=== PATIENT | male | born 1930 | race Caucasian/White ===

== ENCOUNTER 2020-10-12 18:31 | Emergency (ER) | payer MEDICARE ==
--- NOTE | 2020-10-12 19:02 | ED ---
General Adult HPI - General Chief complaint: Recheck/Abnormal Lab/Rx Stated complaint: Low Hemoglobin Time Seen by Provider: 10/12/20 18:41 Source: EMS Mode of arrival: EMS - History of Present Illness Initial comments: Dictation was produced using [employer] dictation software. please excuse any grammatical, word or spelling errors. Chief Complaint: 89-year-old male presents with low hemoglobin History of Present Illness: 89-year-old male who presents to the emergency department for low hemoglobin. Patient is a resident at [facility]. He had routine blood work performed by [facility] doctor. They found that his hemoglobin was 7.3. More history was obtained from Abisai Ma is one of our urologists. He states that the patient is his uncle. 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 There is concern that perhaps patient had black stools for the last several days. Patient at bedside denies any issues at the moment. Denies chest pain abdominal pain or shortness of breath. States that he had some black stools 5 days ago however since then he has had normal colored stools. The ROS documented in this emergency department record has been reviewed and confirmed by me. Those systems with pertinent positive or negative responses have been documented in the HPI. All other systems are other negative and/or noncontributory. PHYSICAL EXAM: General Impression: Alert and oriented x3, not in acute distress HEENT: Normocephalic atraumatic, extra-ocular movements intact, pupils equal and reactive to light bilaterally, mucous membranes moist. Cardiovascular: Heart regular rate and rhythm Chest: Able to complete full sentences, no retractions, no tachypnea Abdomen: abdomen soft, non-tender, non-distended, no organomegaly Musculoskeletal: Pulses present and equal in all extremities, no peripheral edema Motor: no focal deficits noted Neurological: CN II-XII grossly intact, no focal motor or sensory deficits noted Skin: Intact with no visualized rashes Psych: Normal affect and mood Rectal exam: No gross blood ED course: 89-year-old male presents to the emergency Department for hemoglobin 7.3. There is concern that perhaps patient had black stools recently. Vital signs upon arrival are within acceptable limits. Patient is well-appearing at bedside. He does not appear to be in any acute distress. Physical examination is benign. Laboratory evaluation obtained. He will is 7.8. RDW is 18.3. No signs of macrocytosis. Coag panel is negative. Metabolic panel shows mild hypokalemia 3.1. Creatinine of 2.19 and a BUN of 51 still, blood is negative. These labs were discussed with Lizbet Gorman's, patient's nephew who is familiar with his medical history states that patient's renal function is currently at baseline. We do not have a recent lab result for comparison. EKG interpretation: Ventricular rate 57, A. fib, QRS 110, QTc 459. No DE prolongation, no QTC prolongation, no ST or T-wave changes noted. No EKG for comparison. Overall, this EKG is unremarkable Case is discussed with Dr. Mercado who is familiar with patient. She states that patient's hemoglobin is typically in the low 8 range and appeared today 7.8. This appears to be near his baseline. He presentation is benign. He has no GI bleed. Patient feels well and has no symptoms. Patient is agreeable for discharge. - Related Data Allergies Allergy/AdvReac Type Severity Reaction Status Date / Time Penicillins Allergy Severe Anaphylaxis Verified 10/12/20 18:51 Review of Systems ROS Statement: Those systems with pertinent positive or pertinent negative responses have been documented in the HPI. ROS Other: All systems not noted in ROS Statement are negative. Course Vital Signs 10/12/20 18:41 Temperature 98.9 F Pulse Rate 60 Respiratory 18 Rate Blood Pressure 119/42 O2 Sat by Pulse 100 Oximetry Medical Decision Making - Lab Data Result diagrams: 10/12/20 19:08 10/12/20 19:08 Lab Results 10/12/20 10/12/20 10/12/20 Range/Units 19:08 19:08 19:08 WBC 9.2 (3.8-10.6) k/uL RBC 2.53 L (4.30-5.90) m/uL Hgb 7.8 L (13.0-17.5) gm/dL Hct 23.5 L (39.0-53.0) % MCV 92.8 (80.0-100.0) fL MCH 31.0 (25.0-35.0) pg MCHC 33.4 (31.0-37.0) g/dL RDW 18.3 H (11.5-15.5) % Plt Count 335 (150-450) k/uL MPV 8.6 Neutrophils % 67 % Lymphocytes % 14 % Monocytes % 8 % Eosinophils % 7 % Basophils % 1 % Neutrophils # 6.2 (1.3-7.7) k/uL Lymphocytes # 1.3 (1.0-4.8) k/uL Monocytes # 0.7 (0-1.0) k/uL Eosinophils # 0.7 (0-0.7) k/uL Basophils # 0.1 (0-0.2) k/uL Hypochromasia Slight Poikilocytosis Slight Anisocytosis Slight PT 11.0 (9.0-12.0) sec INR 1.0 (<1.2) APTT 29.3 (22.0-30.0) sec Sodium (137-145) mmol/L Potassium (3.5-5.1) mmol/L Chloride (98-107) mmol/L Carbon Dioxide (22-30) mmol/L Anion Gap mmol/L BUN (9-20) mg/dL Creatinine (0.66-1.25) mg/dL Est GFR (CKD-EPI)AfAm (>60 ml/min/1.73 sqM) Est GFR (CKD-EPI)NonAf (>60 ml/min/1.73 sqM) Glucose (74-99) mg/dL Calcium (8.4-10.2) mg/dL Stool Occult Blood Negative (Negative) Blood Type Recheck Bld Type Recheck Status Spec Expiration Date 10/12/20 10/12/20 Range/Units 19:08 19:08 WBC (3.8-10.6) k/uL RBC (4.30-5.90) m/uL Hgb (13.0-17.5) gm/dL Hct (39.0-53.0) % MCV (80.0-100.0) fL MCH (25.0-35.0) pg MCHC (31.0-37.0) g/dL RDW (11.5-15.5) % Plt Count (150-450) k/uL MPV Neutrophils % % Lymphocytes % % Monocytes % % Eosinophils % % Basophils % % Neutrophils # (1.3-7.7) k/uL Lymphocytes # (1.0-4.8) k/uL Monocytes # (0-1.0) k/uL Eosinophils # (0-0.7) k/uL Basophils # (0-0.2) k/uL Hypochromasia Poikilocytosis Anisocytosis PT (9.0-12.0) sec INR (<1.2) APTT (22.0-30.0) sec Sodium 136 L (137-145) mmol/L Potassium 3.1 L (3.5-5.1) mmol/L Chloride 93 L (98-107) mmol/L Carbon Dioxide 33 H (22-30) mmol/L Anion Gap 10 mmol/L BUN 51 H (9-20) mg/dL Creatinine 2.19 H (0.66-1.25) mg/dL Est GFR (CKD-EPI)AfAm 30 (>60 ml/min/1.73 sqM) Est GFR (CKD-EPI)NonAf 26 (>60 ml/min/1.73 sqM) Glucose 124 H (74-99) mg/dL Calcium 8.8 (8.4-10.2) mg/dL Stool Occult Blood (Negative) Blood Type Recheck No Previous Record Bld Type Recheck Status CABO Indicated Spec Expiration Date 10/15/20202307 Disposition Clinical Impression: Abnormal laboratory test Disposition: HOME SELF-CARE Condition: Fair Instructions (If sedation given, give patient instructions): Anemia (ED) Is patient prescribed a controlled substance at d/c from ED?: No Referrals: Homero Renee MD [Primary Care Provider] - 1-2 days
[2020-10-12 19:25] LABS: Anisocytosis Slight; Basophils # (A) 0.1 k/uL (0-0.2); Basophils % (A) 1 %; Eosinophils # (A) 0.7 k/uL (0-0.7); Eosinophils % (A) 7 %; HCT 23.5 % (39.0-53.0); HGB 7.8 gm/dL (13.0-17.5); Hypochromasia Slight; Lymphocytes # (A) 1.3 k/uL (1.0-4.8); Lymphocytes % (A) 14 %; MCHC 33.4 g/dL (31.0-37.0); MCV 92.8 fL (80.0-100.0); Mean Platelet Volume 8.6; Monocytes # (A) 0.7 k/uL (0-1.0); Monocytes % (A) 8 %; Neutrophils # (A) 6.2 k/uL (1.3-7.7); Neutrophils % (A) 67 %; Platelet Count 335 k/uL (150-450); Poikilocytosis Slight; RBC 2.53 m/uL (4.30-5.90); RDW 18.3 % (11.5-15.5); WBC 9.2 k/uL (3.8-10.6)
[2020-10-12 19:34] LABS: Partial Thromboplastin Time 29.3 sec (22.0-30.0)
[2020-10-12 19:43] LABS: Calcium 8.8 mg/dL (8.4-10.2); Potassium 3.1 mmol/L (3.5-5.1)
[2020-10-12] MEDS ORDERED: POTASSIUM CHLORIDE ER 20 MEQ TAB.ER PO STA (19:58)
[2020-10-12 20:29] VITALS: BP 106/52; PULSE 68; RESP 20; TEMP 97.6
== END 2020-10-12 22:09 | disposition home or self-care (01) ==
LOC: EC 18:31
DX: R79.9 Abnormal finding of blood chemistry, unspecified (principal); Z85.048 Personal history of other malignant neoplasm of rectum, rectosigmoid junction, and anus
CPT/HCPCS: 36415; 80048; 82272; 85025; 85610; 85730; 86850; 86900; 86901; 93005; 99284

== ENCOUNTER 2020-10-24 | Inpatient (IN) | payer MEDICARE | END 2020-10-29 14:12 | disposition home or self-care (01) | DRG 377 | PROVIDERS: ADMIT Hospitalist | PROC: 30233N1 Transfusion of Nonautologous Red Blood Cells into Peripheral Vein, Percutaneous Approach (ICD-10-PCS; 2020-10-24) | PROC: 0DB98ZX Excision of Duodenum, Via Natural or Artificial Opening Endoscopic, Diagnostic (ICD-10-PCS; principal; 2020-10-26) | PROC: 0DBH8ZZ Excision of Cecum, Via Natural or Artificial Opening Endoscopic (ICD-10-PCS; 2020-10-26) | PROC: 0DBL8ZZ Excision of Transverse Colon, Via Natural or Artificial Opening Endoscopic (ICD-10-PCS; 2020-10-26) | PROC: 0DBP8ZZ Excision of Rectum, Via Natural or Artificial Opening Endoscopic (ICD-10-PCS; 2020-10-26) | PROC: 0DBM8ZZ Excision of Descending Colon, Via Natural or Artificial Opening Endoscopic (ICD-10-PCS; 2020-10-26) | CPT/HCPCS: 36415; 43239; 45380; 45385; 71046; 80048; 80053; 81001; 82272; 82728; 82747; 83010; 83540; 83550; 83615; 83735; 84484; 85025; 85027; 85610; 85730; 86850; 86900; 86901; 86920; 87077; 87086; 87186; 87635; 88305; 93005; 94640; 94760; 96374; 99291 ==

== ENCOUNTER 2021-01-26 09:42 | Inpatient (IN) | payer MEDICARE ==
--- NOTE | 2021-01-26 10:07 | ED ---
General Adult HPI - General Chief complaint: Shortness of Breath Stated complaint: SOB Time Seen by Provider: 01/26/21 10:00 Source: patient, EMS, RN notes reviewed, old records reviewed Mode of arrival: EMS Limitations: no limitations - History of Present Illness Initial comments: This is an 89-year-old male who presents emergency Department and is very poor historian. Patient states he is having shortness of breath per patient states it started about 3 weeks. Aggressively worse. Patient states she smokes cigarettes up until last year. Patient states she's never been told that he had emphysema or COPD. Patient has no complaints of any chest pain or pain anywhere. Patient denies any recent fever chills per patient denies any significant cough. Patient states he is unable to walk any distance before he gets short of breath per patient states normally can go down and get food but now he has to stop multiple times before he gets it because he is so short of breath. Patient denies any recent vomiting or diarrhea. Patient states that he is getting weaker as well. - Related Data Home Medications Medication Instructions Recorded Confirmed Acetaminophen Tab [Tylenol] 500 mg PO Q4H PRN 10/24/20 10/24/20 Albuterol Inhaler [Ventolin Hfa 1 puff INHALATION RT-Q4H 10/24/20 10/24/20 Inhaler] Allopurinol [Zyloprim] 200 mg PO DAILY 10/24/20 10/24/20 Apixaban [Eliquis] 2.5 mg PO BID 10/24/20 10/24/20 Cholecalciferol [Vitamin D3 (25 25 mcg PO DAILY 10/24/20 10/24/20 Mcg = 1000 Iu)] Cyanocobalamin [Vitamin B-12] 500 mcg PO DAILY 10/24/20 10/24/20 Ferrous Gluconate 324 mg PO Q48H 10/24/20 10/24/20 Fluticasone/Vilanterol [Breo 1 puff INHALATION RT-DAILY 10/24/20 10/24/20 Ellipta 100-25 Mcg Inhaler] Melatonin 3 mg PO HS 10/24/20 10/24/20 Menthol-Zinc Oxide Oint 1 applic TOPICAL DAILY 10/24/20 10/24/20 [Calmoseptine Oint] Metoprolol Succinate [Toprol XL] 12.5 mg PO DAILY 10/24/20 10/24/20 Midodrine HCl [ProAmatine] 10 mg PO TID-W/MEALS 10/24/20 10/24/20 Omeprazole 20 mg PO DAILY 10/24/20 10/24/20 Rosuvastatin [Crestor] 10 mg PO HS 10/24/20 10/24/20 Sennosides/Docusate Sodium [Senna 2 tab PO HS 10/24/20 10/24/20 Plus 8.6-50 mg Tablet] Previous Rx's Medication Instructions Recorded Albuterol Nebulized [Ventolin 2.5 mg INHALATION TID #90 ml 10/29/20 Nebulized] Furosemide [Lasix] 40 mg PO DAILY #30 tab 10/29/20 Levofloxacin [Levaquin] 500 mg PO DAILY #10 tab 10/29/20 Spironolactone [Aldactone] 25 mg PO DAILY #30 tab 10/29/20 Allergies Allergy/AdvReac Type Severity Reaction Status Date / Time Penicillins Allergy Severe Anaphylaxis Verified 01/26/21 12:48 Review of Systems ROS Statement: Those systems with pertinent positive or pertinent negative responses have been documented in the HPI. ROS Other: All systems not noted in ROS Statement are negative. Past Medical History Past Medical History: Cancer, Heart Failure, CVA/TIA, GERD/Reflux, Osteoarthriti s (OA), Renal Disease Additional Past Medical History / Comment(s): insomnia, subarachnoid hemorrhage, hemiplegia and hemiparesis, dysphagia, gout, History of Any Multi-Drug Resistant Organisms: None Reported Past Surgical History: Unable to Obtain Past Anesthesia/Blood Transfusion Reactions: No Reported Reaction Past Psychological History: No Psychological Hx Reported Smoking Status: Former smoker Past Alcohol Use History: None Reported Past Drug Use History: None Reported - Past Family History Family Family Medical History: No Reported History General Exam - General Exam Comments Initial Comments: GENERAL: Patient is well-developed and well-nourished. Patient is nontoxic and well- hydrated and is in no acute distress. ENT: Neck is soft and supple. No significant lymphadenopathy is noted. Oropharynx is clear. Moist mucous membranes. Neck has full range of motion without eliciting any pain. EYES: The sclera were anicteric and conjunctiva were pink and moist. Extraocular movements were intact and pupils were equal round and reactive to light. Eyelids were unremarkable. PULMONARY: Unlabored respirations. Good breath sounds bilaterally. No audible rales rhonchi or wheezing was noted. CARDIOVASCULAR: There is a regular rate and rhythm patient has a 4/6 systolic murmur ABDOMEN: Soft and nontender with normal bowel sounds. SKIN: Skin is clear with no lesions or rashes and otherwise unremarkable. NEUROLOGIC: Patient is alert and oriented x3. Cranial nerves II through XII are grossly intact. Motor and sensory are also intact. Patient has some expressive patient but after multiple times he usually can get out what he wants to say. Sym metrical smile. MUSCULOSKELETAL: Normal extremities with adequate strength and full range of motion. No lower extremity swelling or edema. No calf tenderness. LYMPHATICS: No significant lymphadenopathy is noted PSYCHIATRIC: Normal psychiatric evaluation. Limitations: no limitations Course Vital Signs 01/26/21 01/26/21 09:57 12:21 Temperature 97.6 F Pulse Rate 62 58 L Respiratory 22 18 Rate Blood Pressure 141/58 127/48 O2 Sat by Pulse 98 100 Oximetry Medical Decision Making - Medical Decision Making EKG shows junctional rhythm at 57 bpm QRS 106 QT interval 438 QTC is 426 per patient's EKG shows no ST segment elevation or depression. No Patient's chest x-ray shows pulmonary edema. I gave the patient Lasix. Patient's hemoglobin is 6.5 seconds the patient one unit of packed red blood cells. Patient's troponin was also elevated psychotic consult to cardiology. Patient also has an elevated creatinine and an elevated d-dimer so I ul trasounded both legs for DVTs. I spoke with Dr. aSini he agreed to admit the patient admitted the patient wrote admitting orders I continued Lasix on the floor. I repeated CBCs every 6. - Lab Data Result diagrams: 01/26/21 10:35 01/26/21 10:35 Lab Results 01/26/21 01/26/21 01/26/21 Range/Units 10:35 10:35 10:35 WBC 12.2 H (3.8-10.6) k/uL RBC 2.31 L (4.30-5.90) m/uL Hgb 6.5 L* (13.0-17.5) gm/dL Hct 20.3 L (39.0-53.0) % MCV 88.0 (80.0-100.0) fL MCH 28.0 (25.0-35.0) pg MCHC 31.8 (31.0-37.0) g/dL RDW 21.0 H (11.5-15.5) % Plt Count 212 (150-450) k/uL MPV 9.9 Neutrophils % 72 % Lymphocytes % 11 % Monocytes % 6 % Eosinophils % 8 % Basophils % 1 % Neutrophils # 8.8 H (1.3-7.7) k/uL Lymphocytes # 1.3 (1.0-4.8) k/uL Monocytes # 0.7 (0-1.0) k/uL Eosinophils # 0.9 H (0-0.7) k/uL Basophils # 0.1 (0-0.2) k/uL Anisocytosis Moderate PT 11.4 (9.0-12.0) sec INR 1.1 (<1.2) APTT 25.5 (22.0-30.0) sec D-Dimer 2.15 H (<0.60) mg/L FEU Sodium (137-145) mmol/L Potassium (3.5-5.1) mmol/L Chloride (98-107) mmol/L Carbon Dioxide (22-30) mmol/L Anion Gap mmol/L BUN (9-20) mg/dL Creatinine (0.66-1.25) mg/dL Est GFR (CKD-EPI)AfAm (>60 ml/min/1.73 sqM) Est GFR (CKD-EPI)NonAf (>60 ml/min/1.73 sqM) Glucose (74-99) mg/dL Plasma Lactic Acid Jose (0.7-2.0) mmol/L Calcium (8.4-10.2) mg/dL Magnesium (1.6-2.3) mg/dL Total Bilirubin (0.2-1.3) mg/dL AST (17-59) U/L ALT (4-49) U/L Alkaline Phosphatase (38-126) U/L Troponin I (0.000-0.034) ng/mL NT-Pro-B Natriuret Pep pg/mL Total Protein (6.3-8.2) g/dL Albumin (3.5-5.0) g/dL Urine Color Light Yellow Urine Appearance Clear (Clear) Urine pH 5.5 (5.0-8.0) Ur Specific Addy 1.010 (1.001-1.035) Urine Protein Negative (Negative) Urine Glucose (UA) Negative (Negative) Urine Ketones Negative (Negative) Urine Blood Negative (Negative) Urine Nitrite Negative (Negative) Urine Bilirubin Negative (Negative) Urine Urobilinogen <2.0 (<2.0) mg/dL Ur Leukocyte Esterase Negative (Negative) Coronavirus (PCR) (Not Detectd) 01/26/21 01/26/21 01/26/21 Range/Units 10:35 10:35 10:35 WBC (3.8-10.6) k/uL RBC (4.30-5.90) m/uL Hgb (13.0-17.5) gm/dL Hct (39.0-53.0) % MCV (80.0-100.0) fL MCH (25.0-35.0) pg MCHC (31.0-37.0) g/dL RDW (11.5-15.5) % Plt Count (150-450) k/uL MPV Neutrophils % % Lymphocytes % % Monocytes % % Eosinophils % % Basophils % % Neutrophils # (1.3-7.7) k/uL Lymphocytes # (1.0-4.8) k/uL Monocytes # (0-1.0) k/uL Eosinophils # (0-0.7) k/uL Basophils # (0-0.2) k/uL Anisocytosis PT (9.0-12.0) sec INR (<1.2) APTT (22.0-30.0) sec D-Dimer (<0.60) mg/L FEU Sodium 132 L (137-145) mmol/L Potassium 4.3 (3.5-5.1) mmol/L Chloride 99 (98-107) mmol/L Carbon Dioxide 22 (22-30) mmol/L Anion Gap 11 mmol/L BUN 111 H* (9-20) mg/dL Creatinine 1.93 H (0.66-1.25) mg/dL Est GFR (CKD-EPI)AfAm 35 (>60 ml/min/1.73 sqM) Est GFR (CKD-EPI)NonAf 30 (>60 ml/min/1.73 sqM) Glucose 126 H (74-99) mg/dL Plasma Lactic Acid Jose 1.3 (0.7-2.0) mmol/L Calcium 9.3 (8.4-10.2) mg/dL Magnesium 2.3 (1.6-2.3) mg/dL Total Bilirubin 0.8 (0.2-1.3) mg/dL AST 37 (17-59) U/L ALT 18 (4-49) U/L Alkaline Phosphatase 86 (38-126) U/L Troponin I 0.079 H* (0.000-0.034) ng/mL NT-Pro-B Natriuret Pep pg/mL Total Protein 6.6 (6.3-8.2) g/dL Albumin 3.7 (3.5-5.0) g/dL Urine Color Urine Appearance (Clear) Urine pH (5.0-8.0) Ur Specific Addy (1.001-1.035) Urine Protein (Negative) Urine Glucose (UA) (Negative) Urine Ketones (Negative) Urine Blood (Negative) Urine Nitrite (Negative) Urine Bilirubin (Negative) Urine Urobilinogen (<2.0) mg/dL Ur Leukocyte Esterase (Negative) Coronavirus (PCR) (Not Detectd) 01/26/21 01/26/21 Range/Units 10:35 12:21 WBC (3.8-10.6) k/uL RBC (4.30-5.90) m/uL Hgb (13.0-17.5) gm/dL Hct (39.0-53.0) % MCV (80.0-100.0) fL MCH (25.0-35.0) pg MCHC (31.0-37.0) g/dL RDW (11.5-15.5) % Plt Count (150-450) k/uL MPV Neutrophils % % Lymphocytes % % Monocytes % % Eosinophils % % Basophils % % Neutrophils # (1.3-7.7) k/uL Lymphocytes # (1.0-4.8) k/uL Monocytes # (0-1.0) k/uL Eosinophils # (0-0.7) k/uL Basophils # (0-0.2) k/uL Anisocytosis PT (9.0-12.0) sec INR (<1.2) APTT (22.0-30.0) sec D-Dimer (<0.60) mg/L FEU Sodium (137-145) mmol/L Potassium (3.5-5.1) mmol/L Chloride (98-107) mmol/L Carbon Dioxide (22-30) mmol/L Anion Gap mmol/L BUN (9-20) mg/dL Creatinine (0.66-1.25) mg/dL Est GFR (CKD-EPI)AfAm (>60 ml/min/1.73 sqM) Est GFR (CKD-EPI)NonAf (>60 ml/min/1.73 sqM) Glucose (74-99) mg/dL Plasma Lactic Acid Jose (0.7-2.0) mmol/L Calcium (8.4-10.2) mg/dL Magnesium (1.6-2.3) mg/dL Total Bilirubin (0.2-1.3) mg/dL AST (17-59) U/L ALT (4-49) U/L Alkaline Phosphatase (38-126) U/L Troponin I (0.000-0.034) ng/mL NT-Pro-B Natriuret Pep 35910 pg/mL Total Protein (6.3-8.2) g/dL Albumin (3.5-5.0) g/dL Urine Color Urine Appearance (Clear) Urine pH (5.0-8.0) Ur Specific Addy (1.001-1.035) Urine Protein (Negative) Urine Glucose (UA) (Negative) Urine Ketones (Negative) Urine Blood (Negative) Urine Nitrite (Negative) Urine Bilirubin (Negative) Urine Urobilinogen (<2.0) mg/dL Ur Leukocyte Esterase (Negative) Coronavirus (PCR) Not Detected (Not Detectd) Critical Care Time Critical Care Time: Yes Total Critical Care Time: 35 Disposition Clinical Impression: Acute pulmonary edema, Anemia, Renal insufficiency, Elevated troponin Disposition: ADMITTED IP TO THIS HOSP Referrals: Jose Rollins MD [Primary Care Provider] - 1-2 days Time of Disposition: 12:58
[2021-01-26 11:04] LABS: Appearance,Urine Clear (Clear); Bilirubin,Urine Negative (Negative); Blood,Urine Negative (Negative); Color,Urine Light Yellow; Glucose,Urine (UA) Negative (Negative); Ketones,Urine Negative (Negative); Leukocyte Esterase,Urine Negative (Negative); Nitrite,Urine Negative (Negative); PH, Urine 5.5 (5.0-8.0); Protein,Urine Negative (Negative); Urobilinogen,Urine <2.0 mg/dL (<2.0)
[2021-01-26 11:09] LABS: Albumin 3.7 g/dL (3.5-5.0); Calcium 9.3 mg/dL (8.4-10.2); INR 1.1 (<1.2); Magnesium 2.3 mg/dL (1.6-2.3); Partial Thromboplastin Time 25.5 sec (22.0-30.0); Potassium 4.3 mmol/L (3.5-5.1); Prothrombin Time 11.4 sec (9.0-12.0); Total Bilirubin 0.8 mg/dL (0.2-1.3); Total Protein 6.6 g/dL (6.3-8.2)
--- NOTE | 2021-01-26 11:10 | XR ---
EXAMINATION TYPE: XR chest 2V DATE OF EXAM: 01/26/2021 COMPARISON: Chest x-ray October 27, 2020 and older studies HISTORY: Shortness of breath TECHNIQUE: Frontal and lateral views of the chest are obtained. FINDINGS: There is background chronic parenchymal change with persistent perihilar increased opacity . Increased bilateral interstitial prominence. No pleural effusion or pneumothorax seen. Stable card iomegaly with mitral annular calcifications. Atherosclerotic change aortic knob. The osseous structu res are intact. IMPRESSION: Suspect CHF exacerbation as there is cardiomegaly with bilateral alveolar and interstiti al edema thought present. Correlate clinically.
[2021-01-26 11:17] LABS: Anisocytosis Moderate; Basophils # (A) 0.1 k/uL (0-0.2); Basophils % (A) 1 %; Eosinophils # (A) 0.9 k/uL (0-0.7); Eosinophils % (A) 8 %; HCT 20.3 % (39.0-53.0); Lymphocytes # (A) 1.3 k/uL (1.0-4.8); Lymphocytes % (A) 11 %; MCHC 31.8 g/dL (31.0-37.0); Mean Platelet Volume 9.9; Monocytes # (A) 0.7 k/uL (0-1.0); Monocytes % (A) 6 %; Neutrophils # (A) 8.8 k/uL (1.3-7.7); Neutrophils % (A) 72 %; Platelet Count 212 k/uL (150-450); RBC 2.31 m/uL (4.30-5.90); WBC 12.2 k/uL (3.8-10.6)
[2021-01-26 11:29] LABS: HGB 6.5 gm/dL (13.0-17.5)
[2021-01-26] MEDS ORDERED: FUROSEMIDE 10 MG/ML 2 ML VIAL IV ONE (12:56)
--- NOTE | 2021-01-26 13:44 | US ---
EXAMINATION TYPE: US venous doppler duplex LE DATE OF EXAM: 01/26/2021 1:02 PM COMPARISON: NONE CLINICAL HISTORY: Elevated d-dimer. Elevated D-Dimer SIDE PERFORMED: Bilateral TECHNIQUE: The lower extremity deep venous system is examined utilizing real time linear array sonog rubin with graded compression, doppler sonography and color-flow sonography. VESSELS IMAGED: Common Femoral Vein Deep Femoral Vein Greater Saphenous Vein * Femoral Vein Popliteal Vein Small Saphenous Vein * Proximal Calf Veins (* superficial vessels) Right Leg: Negative for DVT Left Leg: Negative for DVT Grayscale, color doppler, spectral doppler imaging performed of the deep veins of the bilateral lower extremities. There is normal flow, compressibility, vascular waveforms. IMPRESSION: No ultrasound evidence for acute DVT in either lower extremity.
[2021-01-26 14:33] LABS: Anisocytosis Moderate; HCT 20.2 % (39.0-53.0); Hypochromasia Slight; MCH 27.9 pg (25.0-35.0); MCHC 30.7 g/dL (31.0-37.0); MCV 90.9 fL (80.0-100.0); Macrocytosis Slight; Mean Platelet Volume 12.1; RBC 2.23 m/uL (4.30-5.90); RDW 20.7 % (11.5-15.5); WBC 9.8 k/uL (3.8-10.6)
[2021-01-26 14:56] LABS: HGB 6.2 gm/dL (13.0-17.5)
[2021-01-26 15:11] LABS: Platelet Count 160 k/uL (150-450)
[2021-01-26] MEDS: allopurinoL 100 MG TAB PO SCH (20:55)
[2021-01-26] MEDS: MELATONIN 3 MG TABLET PO SCH (20:56)
[2021-01-26] MEDS: ATORVASTATIN 20 MG TAB PO SCH (20:57)
[2021-01-26] MEDS ORDERED: FUROSEMIDE 10 MG/ML 2 ML VIAL IV SCH (21:00)
[2021-01-26] MEDS ORDERED: FUROSEMIDE 10 MG/ML 10 ML VIAL IV SCH (21:00)
[2021-01-26] MEDS ORDERED: APIXABAN 2.5 MG TABLET PO SCH (21:00)
--- NOTE | 2021-01-26 21:53 | P.HPIM ---
History of Present Illness H&P Date: 01/26/21 Chief Complaint: Short of breath History of presenting complaint: This is a pleasant 89-year-old patient, of Dr. Rollins whose chronic stable medical conditions include GERD, primary osteoarthritis, hyperlipidemia, chronic insomnia, COPD in a previous smoker, chronic gout, and a core status of DO NOT RESUSCITATE. Patient presents with 3 days of progressive increasing shortness of breath. Tired rundown. Minimal cough. No sputum production. No fever no chills. Appetite is fair. Patient has about to 3 bowel movements a day. Because of lack status. Normally was able to go down very lives to get his food has not been able to do the same because of feeling weak and tired. Patient was here in September of this year. Was found to anemia. EGD: Showed duodenal polyp that was biopsied, moderate size hiatal hernia and John on a lotions. Some colon polyps were also biopsied. By Dr. Yves Hilario Patient now presents with a hemoglobin of 6.9. 1 unit of blood was ordered in the ER. Patient unable to tell if he has any blood in his stools. Back in September patient did receive 2 units of blood. Patient also been having 3-4 bowel movements a day. Was receiving a laxative. Review of systems: GEN.: Tired EYES: None HEENT: Decreased hearing NECK: None RESPIRATORY: As above CARDIOVASCULAR: No chest pain GASTROINTESTINAL: None GENITOURINARY: None MUSCULOSKELETAL: Joint pains LYMPHATICS: None HEMATOLOGICAL: None PSYCHIATRY: Bit forgetful NEUROLOGICAL: Needs assistance with walking Past medical history to include: Erosions in the Stomach, Moderate Hiatal Hernia, Congestive Heart Failure with EF of 45%, GERD, Osteoarthritis, Hyperlipidemia, Insomnia, COPD, Gout, Chronic Kidney Disease Stage III, DO NOT RESUSCITATE Social History: Until a Year Ago Patient Was Smoking 2 Small Cigars a Day. Retired.[email or web address]. Family history: Reviewed, noncontributory to presentation Physical examination: VITAL SIGNS: 97.6, 62, 22, 141 minute 58, 98% on 2 L GENERAL: BMI 26.6, reclining in bed, awake, tired. EYES: Pupils equal. Conjunctiva palel. HEENT: External appearance of nose and ears normal, oral cavity grossly normal. NECK: JVD possibly raised; masses not palpable. HEART: First and second heart sounds are normal; no edema. LUNGS: Respiratory rate increased, diminished breath sounds and crackles. ABDOMEN: Soft, nontender, liver spleen not palpable, no masses palpable. PSYCH: Alert and oriented x3; mood and affect anxiousl. NEUROLOGICAL: Cranial nerves grossly intact; no facial asymmetry, power and sensation grossly intact. Hard of hearing LYMPHATICS: No lymph nodes palpable in the axilla and neck INVESTIGATIONS, reviewed in the clinical context: WBC 12.2 hemoglobin 6.5 platelets 212 potassium 4.3 BUN 111 creatinine 1.93 Troponin I 0.07 0.082 UA negative Ultrasound lower extremity: Negative for DVT Chest x-ray film personally reviewed by me-pulmonary edema EKG tracing junctional rhythm. Rate of 57 some nonspecific Previous labs: October 2020 patient of BUN of 34 creatinine 1.24 Assessment and plan: - -Acute on chronic congestive heart failure exacerbation from systolic dysfunction EF 45% IV Lasix 80 mg every 12. Follow lites closely. -Acute kidney injury likely ATN from cardiorenal syndrome. Hopefully patient's renal function will improve with IV Lasix. Nephrology consult -Moderate hiatal hernia -Primary osteoarthritis multiple joints bilaterally Pain medications. -Hyperlipidemia Lipitor 20 mg daily at bedtime -Chronic insomnia for multiple medical problems Melatonin 6 mg daily at bedtime -COPD in a previous smoker DuoNeb 3 times a day -Chronic kidney disease stage III likely nephrosclerosis Nephrology consult -DO NOT RESUSCITATE Patient placed on IV Lasix 80 every 12. Follow lites closely. Home medications resumed. Cardiology and nephrology consulted. Spoke to patient's nephew Dr. bernal. Prognosis guarded given his age and, Hoffman. He'll also discussed with the patient. Questions answered. Laxative discontinued. Follow labs Given the complexity and severity of patient's condition expect the patient to be in the hospital at least for 2 overnights Past Medical History Past Medical History: Cancer, Heart Failure, CVA/TIA, GERD/Reflux, Osteoart hritis (OA), Renal Disease Additional Past Medical History / Comment(s): insomnia, subarachnoid hemorrhage, hemiplegia and hemiparesis, dysphagia, gout, History of Any Multi-Drug Resistant Organisms: None Reported Past Surgical History: Unable to Obtain Past Anesthesia/Blood Transfusion Reactions: No Reported Reaction Past Psychological History: No Psychological Hx Reported Smoking Status: Former smoker Past Alcohol Use History: None Reported Past Drug Use History: None Reported - Past Family History Family Family Medical History: No Reported History Medications and Allergies Home Medications Medication Instructions Recorded Confirmed Type Acetaminophen Tab [Tylenol] 500 mg PO Q4H PRN 10/24/20 01/26/21 History Albuterol Inhaler [Ventolin Hfa 1 puff INHALATION RT-Q4H PRN 10/24/20 01/26/21 History Inhaler] Allopurinol [Zyloprim] 100 mg PO BID 10/24/20 01/26/21 History Apixaban [Eliquis] 2.5 mg PO BID 10/24/20 01/26/21 History Cholecalciferol [Vitamin D3 (25 25 mcg PO DAILY 10/24/20 01/26/21 History Mcg = 1000 Iu)] Cyanocobalamin [Vitamin B-12] 500 mcg PO DAILY 10/24/20 01/26/21 History Ferrous Gluconate 324 mg PO DAILY@1130 10/24/20 01/26/21 History Fluticasone/Vilanterol [Breo 1 puff INHALATION RT-DAILY 10/24/20 01/26/21 History Ellipta 100-25 Mcg Inhaler] Melatonin 6 mg PO HS 10/24/20 01/26/21 History Menthol-Zinc Oxide Oint 1 applic TOPICAL DAILY 10/24/20 01/26/21 History [Calmoseptine Oint] Metoprolol Succinate [Toprol XL] 12.5 mg PO DAILY 10/24/20 01/26/21 History Midodrine HCl [ProAmatine] 10 mg PO AC-TID 10/24/20 01/26/21 History Omeprazole 20 mg PO DAILY 10/24/20 01/26/21 History Rosuvastatin [Crestor] 10 mg PO HS 10/24/20 01/26/21 History Sennosides/Docusate Sodium [Senna 2 tab PO HS 10/24/20 01/26/21 History Plus 8.6-50 mg Tablet] Spironolactone [Aldactone] 25 mg PO DAILY #30 tab 10/29/20 01/26/21 Rx Albuterol Nebulized [Ventolin 2.5 mg INHALATION RT-TID 01/26/21 01/26/21 History Nebulized] Aspirin EC [Ecotrin Low Dose] 81 mg PO DAILY 01/26/21 01/26/21 History Diclofenac Sodium Gel [Voltaren 4 gm TOPICAL QID 01/26/21 01/26/21 History Gel] Furosemide [Lasix] 80 mg PO DAILY 01/26/21 01/26/21 History Lactose-Reduced Food [Boost] 237 ml PO DAILY 01/26/21 01/26/21 History Liquacel 30 ml PO BID 01/26/21 01/26/21 History Loperamide [Imodium] 2 - 4 mg PO QID PRN 01/26/21 01/26/21 History Mirabegron [Myrbetriq] 25 mg PO DAILY 01/26/21 01/26/21 History guaiFENesin [Mucinex] 600 mg PO BID PRN 01/26/21 01/26/21 History Allergies Allergy/AdvReac Type Severity Reaction Status Date / Time Penicillins Allergy Severe Anaphylaxis Verified 01/26/21 12:48 Physical Exam Vitals: Vital Signs Temp Pulse Resp BP Pulse Ox 01/26/21 21:00 57 L 20 128/52 97 01/26/21 19:58 97.9 F 59 L 20 125/43 97 01/26/21 18:04 97.8 F 59 L 18 122/46 95 01/26/21 17:38 97.6 F 56 L 18 122/41 97 01/26/21 17:08 97.6 F 58 L 18 116/42 96 01/26/21 16:58 97.5 F L 57 L 18 113/42 97 01/26/21 15:13 97.4 F L 58 L 18 135/55 97 01/26/21 13:30 60 18 133/56 96 01/26/21 12:21 58 L 18 127/48 100 01/26/21 09:57 97.6 F 62 22 141/58 98 Intake and Output 01/26/21 01/26/21 01/26/21 06:59 14:59 22:59 Intake Total 310 Output Total 1900 Balance -1590 Intake: Blood Product 310 Rc As-1 Unit 310 [id number] Output: Urine 1900 Other: Weight 68.039 kg Results CBC & Chem 7: 01/26/21 14:19 01/26/21 10:35 Labs: Abnormal Lab Results - Last 24 Hours (Table) 01/26/21 01/26/21 01/26/21 Range/Units 10:35 10:35 10:35 WBC 12.2 H (3.8-10.6) k/uL RBC 2.31 L (4.30-5.90) m/uL Hgb 6.5 L* (13.0-17.5) gm/dL Hct 20.3 L (39.0-53.0) % MCHC (31.0-37.0) g/dL RDW 21.0 H (11.5-15.5) % Neutrophils # 8.8 H (1.3-7.7) k/uL Eosinophils # 0.9 H (0-0.7) k/uL D-Dimer 2.15 H (<0.60) mg/L FEU Sodium 132 L (137-145) mmol/L BUN 111 H* (9-20) mg/dL Creatinine 1.93 H (0.66-1.25) mg/dL Glucose 126 H (74-99) mg/dL Troponin I (0.000-0.034) ng/mL Crossmatch 01/26/21 01/26/21 01/26/21 Range/Units 10:35 12:20 14:19 WBC (3.8-10.6) k/uL RBC 2.23 L (4.30-5.90) m/uL Hgb 6.2 L* (13.0-17.5) gm/dL Hct 20.2 L (39.0-53.0) % MCHC 30.7 L (31.0-37.0) g/dL RDW 20.7 H (11.5-15.5) % Neutrophils # (1.3-7.7) k/uL Eosinophils # (0-0.7) k/uL D-Dimer (<0.60) mg/L FEU Sodium (137-145) mmol/L BUN (9-20) mg/dL Creatinine (0.66-1.25) mg/dL Glucose (74-99) mg/dL Troponin I 0.079 H* (0.000-0.034) ng/mL Crossmatch See Detail 01/26/21 Range/Units 14:19 WBC (3.8-10.6) k/uL RBC (4.30-5.90) m/uL Hgb (13.0-17.5) gm/dL Hct (39.0-53.0) % MCHC (31.0-37.0) g/dL RDW (11.5-15.5) % Neutrophils # (1.3-7.7) k/uL Eosinophils # (0-0.7) k/uL D-Dimer (<0.60) mg/L FEU Sodium (137-145) mmol/L BUN (9-20) mg/dL Creatinine (0.66-1.25) mg/dL Glucose (74-99) mg/dL Troponin I 0.082 H* (0.000-0.034) ng/mL Crossmatch
[2021-01-26 22:14] LABS: Anisocytosis Slight; HCT 25.7 % (39.0-53.0); Hypochromasia Slight; MCH 28.9 pg (25.0-35.0); MCHC 31.6 g/dL (31.0-37.0); MCV 91.5 fL (80.0-100.0); Mean Platelet Volume 9.7; Platelet Count 200 k/uL (150-450); Poikilocytosis Slight; RDW 19.4 % (11.5-15.5)
[2021-01-26 23:03] LABS: HGB 8.1 gm/dL (13.0-17.5)
[2021-01-27] MEDS: DICLOFENAC SODIUM GEL 100 GM TUBE TOPICAL SCH ×5 (00:30→20:18)
[2021-01-27] MEDS: MIDODRINE 5 MG TAB PO SCH ×3 (06:18→17:05)
[2021-01-27 07:46] LABS: Anisocytosis Slight; HCT 25.7 % (39.0-53.0); HGB 8.5 gm/dL (13.0-17.5); Hypochromasia Slight; MCH 29.7 pg (25.0-35.0); MCHC 33.2 g/dL (31.0-37.0); MCV 89.4 fL (80.0-100.0); Mean Platelet Volume 10.8; Platelet Count 213 k/uL (150-450); Poikilocytosis Moderate; RBC 2.87 m/uL (4.30-5.90); RDW 19.9 % (11.5-15.5); WBC 13.4 k/uL (3.8-10.6)
[2021-01-27 08:05] LABS: Calcium 9.9 mg/dL (8.4-10.2); Magnesium 2.3 mg/dL (1.6-2.3); Potassium 4.1 mmol/L (3.5-5.1)
--- NOTE | 2021-01-27 08:43 | US ---
EXAMINATION TYPE: US kidneys/renal and bladder DATE OF EXAM: 01/27/2021 COMPARISON: US CLINICAL HISTORY: harriett. HARRIETT EXAM MEASUREMENTS: Right Kidney: 8.3 x 4.4 x 4.7 cm Left Kidney: 9.3 x 4.8 x 4.1 cm Right Kidney: No evidence of hydro/ Small in size Left Kidney: Probable parapelvic cyst= 5.7 x 3.2 x 4.6 cm Bladder: Pt has cath in place There is no evidence for hydronephrosis in the right kidney. No nephrolithiasis is seen bilaterally. Centrally in the left kidney there is 5.7 x 3.2 cm oval anechoic lesion felt to reflects simple para pelvic cyst as there is no calyceal prominence identified. The urinary bladder is decompressed by Fo kaushik catheter. IMPRESSION: No hydronephrosis clearly seen bilaterally.
[2021-01-27] MEDS ORDERED: NON FORMULARY DRUG (Lactose-Reduced Food [Boost] 237 ML Ml) PO SCH (09:00)
[2021-01-27] MEDS ORDERED: ASPIRIN 81 MG PO SCH (09:00)
[2021-01-27] MEDS: SPIRONOLACTONE 25 MG TAB PO SCH (09:14)
[2021-01-27] MEDS: METOPROLOL SUCCINATE (ER) 25 MG TAB.ER.24H PO SCH (09:14)
[2021-01-27] MEDS: FUROSEMIDE 20 MG TAB PO SCH ×2 (09:14→17:05)
[2021-01-27] MEDS: CYANOCOBALAMIN 500 MCG TAB PO SCH (09:14)
[2021-01-27] MEDS: PANTOPRAZOLE 40 MG TABLET PO SCH (09:15)
[2021-01-27] MEDS: allopurinoL 100 MG TAB PO SCH ×3 (09:15→21:03)
[2021-01-27] MEDS: MIRABEGRON 25 MG PO SCH (09:16)
--- NOTE | 2021-01-27 10:01 | P.NPCON ---
History of Present Illness - Reason for Consult acute renal failure - History of Present Illness Reason for admission: Acute kidney injury History of present illness: Patient's 89-year-old male seen in renal consultation for acute kidney injury. Patient's creatinine on admission was 1.93 and is stable at 1.90 today. Patient presented to the hospital for shortness of breath which has been going on for the last 3-4 weeks. Blood pressure is stable. No fever. He is maintained on IV Lasix 80 mg twice daily. Has a Lange catheter for urinary retention and is nonoliguric. He is currently on 2 L of cannula. No vomiting or diarrhea. Hemoglobin was as low as 6.2 this mission and he did receive a unit of blood today. Hemoglobin this morning is 8.5. He denies any hematuria. No melena or hematochezia. He denies use of nonsteroidals. UA is benign. Vital signs are stable. HEENT: Head exam is unremarkable. LUNGS: Breath sounds decreased. HEART: Rate and Rhythm are regular. ABDOMEN: Soft, no distention. EXTREMITITES: No edema. Past Medical History Past Medical History: Cancer, Heart Failure, CVA/TIA, GERD/Reflux, Osteoarthritis (OA), Renal Disease Additional Past Medical History / Comment(s): insomnia, subarachnoid hemorrhage, hemiplegia and hemiparesis, dysphagia, gout, History of Any Multi-Drug Resistant Organisms: None Reported Past Surgical History: Unable to Obtain Past Anesthesia/Blood Transfusion Reactions: No Reported Reaction Past Psychological History: No Psychological Hx Reported Smoking Status: Former smoker Past Alcohol Use History: None Reported Past Drug Use History: None Reported - Past Family History Family Family Medical History: No Reported History Medications and Allergies Home Medications Medication Instructions Recorded Confirmed Type Acetaminophen Tab [Tylenol] 500 mg PO Q4H PRN 10/24/20 01/26/21 History Albuterol Inhaler [Ventolin Hfa 1 puff INHALATION RT-Q4H PRN 10/24/20 01/26/21 History Inhaler] Allopurinol [Zyloprim] 100 mg PO BID 10/24/20 01/26/21 History Apixaban [Eliquis] 2.5 mg PO BID 10/24/20 01/26/21 History Cholecalciferol [Vitamin D3 (25 25 mcg PO DAILY 10/24/20 01/26/21 History Mcg = 1000 Iu)] Cyanocobalamin [Vitamin B-12] 500 mcg PO DAILY 10/24/20 01/26/21 History Ferrous Gluconate 324 mg PO DAILY@1130 10/24/20 01/26/21 History Fluticasone/Vilanterol [Breo 1 puff INHALATION RT-DAILY 10/24/20 01/26/21 History Ellipta 100-25 Mcg Inhaler] Melatonin 6 mg PO HS 10/24/20 01/26/21 History Menthol-Zinc Oxide Oint 1 applic TOPICAL DAILY 10/24/20 01/26/21 History [Calmoseptine Oint] Metoprolol Succinate [Toprol XL] 12.5 mg PO DAILY 10/24/20 01/26/21 History Midodrine HCl [ProAmatine] 10 mg PO AC-TID 10/24/20 01/26/21 History Omeprazole 20 mg PO DAILY 10/24/20 01/26/21 History Rosuvastatin [Crestor] 10 mg PO HS 10/24/20 01/26/21 History Sennosides/Docusate Sodium [Senna 2 tab PO HS 10/24/20 01/26/21 History Plus 8.6-50 mg Tablet] Spironolactone [Aldactone] 25 mg PO DAILY #30 tab 10/29/20 01/26/21 Rx Albuterol Nebulized [Ventolin 2.5 mg INHALATION RT-TID 01/26/21 01/26/21 History Nebulized] Aspirin EC [Ecotrin Low Dose] 81 mg PO DAILY 01/26/21 01/26/21 History Diclofenac Sodium Gel [Voltaren 4 gm TOPICAL QID 01/26/21 01/26/21 History Gel] Furosemide [Lasix] 80 mg PO DAILY 01/26/21 01/26/21 History Lactose-Reduced Food [Boost] 237 ml PO DAILY 01/26/21 01/26/21 History Liquacel 30 ml PO BID 01/26/21 01/26/21 History Loperamide [Imodium] 2 - 4 mg PO QID PRN 01/26/21 01/26/21 History Mirabegron [Myrbetriq] 25 mg PO DAILY 01/26/21 01/26/21 History guaiFENesin [Mucinex] 600 mg PO BID PRN 01/26/21 01/26/21 History Allergies Allergy/AdvReac Type Severity Reaction Status Date / Time Penicillins Allergy Severe Anaphylaxis Verified 01/26/21 12:48 Physical Exam Vitals: Vital Signs Temp Pulse Pulse Resp BP BP Pulse Ox 01/27/21 04:00 98.1 F 62 19 114/53 98 01/27/21 02:00 73 18 01/26/21 23:50 98.0 F 73 18 115/73 98 01/26/21 21:39 58 L 20 96 01/26/21 21:00 57 L 20 128/52 97 01/26/21 19:58 97.9 F 59 L 20 125/43 97 01/26/21 18:04 97.8 F 59 L 18 122/46 95 01/26/21 17:38 97.6 F 56 L 18 122/41 97 01/26/21 17:08 97.6 F 58 L 18 116/42 96 01/26/21 16:58 97.5 F L 57 L 18 113/42 97 01/26/21 15:13 97.4 F L 58 L 18 135/55 97 01/26/21 13:31 98.0 F 73 18 115/73 98 01/26/21 13:30 60 18 133/56 96 01/26/21 12:21 58 L 18 127/48 100 01/26/21 09:57 97.6 F 62 22 141/58 98 Intake and Output 01/26/21 01/27/21 01/27/21 22:59 06:59 14:59 Intake Total 310 Output Total 1900 750 Balance -1590 -750 Intake: Blood Product 310 Rc As-1 Unit 310 [id number] Output: Urine 1900 750 Other: Voiding Method Indwelling Catheter Weight 61.5 kg Results - Lab Results Most recent lab results Calcium 9.9 mg/dL (8.4-10.2) 01/27/21 07:17 Magnesium 2.3 mg/dL (1.6-2.3) 01/27/21 07:17 01/27/21 07:17 01/27/21 07:17 Assessment and Plan Plan: Assessment: 1. Acute kidney injury secondary to ATN secondary to cardiorenal syndrome. UA benign. Creatinine stable at 1.9 today. No hydronephrosis noted on kidney ultrasound. Left kidney is atrophic. 2. Urinary retention. Currently has a Lange catheter. 3. Acute blood loss anemia status post blood transfusion this admission. No active bleeding. Hemoglobin improved. 4. Volume overload. Improved for diuresis. 5. Left atrophic kidney. 6. CHF. Unknown ejection fraction. 7. Hypervolemic hyponatremia. Improved. Plan: Agree with changing Lasix from IV to oral. Continue to monitor renal function and urine output. Avoid nephrotoxins. Check iron studies. Add Flomax. Thank you for the consultation. I will continue to follow the patient with you during his hospital stay.
--- NOTE | 2021-01-27 12:48 | CONS ---
CONSULTATION This is an 89-year-old elderly gentleman with a known history of aortic stenosis of a moderate to severe degree and chronic atrial fibrillation who came into the hospital complaining of weakness and lack of energy. He also had shortness of breath when he came into the hospital but he feels well. He is resting comfortably without symptoms. He has about a 2-3 week history of shortness of breath and he is a past smoker. Also has significant aortic stenosis. His hemoglobin was found to be low. He received blood transfusion and it is up from 6.9 to 8.1 and is resting comfortably without symptoms at the time of my evaluation. PAST MEDICAL HISTORY: 1. Remarkable for chronic atrial fibrillation. 2. Hyperlipidemia. 3. Aortic stenosis. 4. History of hypertension. MEDICATIONS: Medications at home include Aldactone 25 mg daily, Lasix 80 mg daily, apixaban 2.5 mg daily, aspirin 81 mg daily, albuterol inhaler, metoprolol succinate 12.5 mg daily, midodrine 10 mg t.i.d. ALLERGIES: PENICILLIN. PHYSICAL EXAMINATION: On examination, blood pressure is 118/70, pulse rate 62 per minute, regular. HEENT unremarkable. Fundus was not examined by me. Neck is supple. There is JVD of 1 cm. No carotid bruit. HEART exam reveals S1, S2 with ejection systolic murmur at the base. Second heart sound is not well heard. LUNGS reveal diminished air entry over bases. ABDOMEN is soft. LOWER EXTREMITIES reveal diminished pulses. CENTRAL NERVOUS SYSTEM grossly no focal deficits. EKG revealed atrial fib, controlled rate, LVH by voltage criteria, nonspecific ST changes. IMPRESSION: 1. Exacerbation of congestive heart failure. 2. Anemia with a hemoglobin of 6.5. 3. Chronic atrial fibrillation. 4. [id number] aortic stenosis. RECOMMENDATIONS: I am recommending that we should discontinue aspirin and Eliquis in this elderly gentleman with bleeding requiring transfusion. I am also suggesting that we can place him on oral Lasix 60 mg p.o. b.i.d., increase activity and if he feels better he can be discharged. We will reduce Aldactone to 12.5 mg daily. I discussed my thoughts in detail with the patient. Thank you very much for the consult. MMODL / IJN: [id number] /
[2021-01-27] MEDS: TAMSULOSIN 0.4 MG CAP.ER.24H PO SCH (12:52)
[2021-01-27] MEDS: ACETAMINOPHEN TAB 500 MG TAB PO PRN (15:07)
[2021-01-27] MEDS: GABAPENTIN 100 MG CAP PO SCH ×2 (15:08→20:19)
[2021-01-27] MEDS: MENTHOL-ZINC OXIDE OINT 113 GM TUBE TOPICAL SCH (15:39)
--- NOTE | 2021-01-27 17:04 | P.PN ---
Progress Note - Text Progress Note Date: 01/27/21 Chief Complaint: Short of breath History of presenting complaint: This is a pleasant 89-year-old patient, of Dr. Rollins whose chronic stable medical conditions include GERD, primary osteoarthritis, hyperlipidemia, chronic insomnia, COPD in a previous smoker, chronic gout, and a core status of DO NOT RESUSCITATE. Patient presents with 3 days of progressive increasing shortness of breath. Tired rundown. Minimal cough. No sputum production. No fever no chills. Tracey etite is fair. Patient has about to 3 bowel movements a day. Because of lack status. Normally was able to go down very lives to get his food has not been able to do the same because of feeling weak and tired. Patient was here in September of this year. Was found to anemia. EGD: Showed duodenal polyp that was biopsied, moderate size hiatal hernia and John on a lotions. Some colon polyps were also biopsied. By Dr. Yves Hilario Patient now presents with a hemoglobin of 6.9. 1 unit of blood was ordered in the ER. Patient unable to tell if he has any blood in his stools. Back in September patient did receive 2 units of blood. Patient also been having 3-4 bowel movements a day. Was receiving a laxative. Admitted with acute CHF exacerbation, acute kidney injury from ATN from cardiorenal syndrome, diarrhea from laxatives and increasing medical debility. Did receive 2 units of blood. January 27: Breathing better. No further diarrhea. Feeling better. Oral intake good. Patient wanted to sit up in a chair. I spoke to patient's nephew Dr. bernal and gave him an update. Patient has been complaining of pain in his lower extremities. Appears to be more neuropathic. Has been changed over to oral Lasix Review of systems: Was done for constitutional, cardiovascular, GI, pulmonary. relevant finding as above Active Medications Acetaminophen (Acetaminophen Tab 500 Mg Tab) 500 mg PO Q4H PRN PRN Reason: Pain Last Admin: 01/27/21 15:07 Dose: 500 mg Documented by: Allopurinol (Allopurinol 100 Mg Tab) 100 mg PO BID [facility] Last Admin: 01/27/21 09:15 Dose: 100 mg Documented by: Atorvastatin Calcium (Atorvastatin 20 Mg Tab) 20 mg PO HS [facility] Last Admin: 01/26/21 20:57 Dose: 20 mg Documented by: Calamine/Phenol (Menthol-Zinc Oxide Oint 113 Gm Tube) 1 applic TOPICAL DAILY [facility]; Protocol Last Admin: 01/27/21 15:39 Dose: Not Given Documented by: Cyanocobalamin (Cyanocobalamin 500 Mcg Tab) 500 mcg PO DAILY [facility] Last Admin: 01/27/21 09:14 Dose: 500 mcg Documented by: Diclofenac Sodium (Diclofenac Sodium Gel 100 Gm Tube) 4 gm TOPICAL QID [facility]; Protocol Last Admin: 01/27/21 15:12 Dose: 4 gm Documented by: Furosemide (Furosemide 20 Mg Tab) 60 mg PO BID@0900,1600 [facility] Last Admin: 01/27/21 09:14 Dose: 60 mg Documented by: Gabapentin (Gabapentin 100 Mg Cap) 100 mg PO BID [facility] Last Admin: 01/27/21 15:08 Dose: 100 mg Documented by: Melatonin (Melatonin 3 Mg Tablet) 6 mg PO HS [facility] Last Admin: 01/26/21 20:56 Dose: 6 mg Documented by: Metoprolol Succinate (Metoprolol Succinate (Er) 25 Mg Tab.Er.24h) 12.5 mg PO DAILY [facility] Last Admin: 01/27/21 09:14 Dose: 12.5 mg Documented by: Midodrine (Midodrine 5 Mg Tab) 10 mg PO AC-TID [facility] Last Admin: 01/27/21 12:52 Dose: 10 mg Documented by: Patient's Own ( Mirabegron [ Myrbetriq] 25 Mg Tablet) 25 mg PO DAILY [facility] Last Admin: 01/27/21 09:16 Dose: Not Given Documented by: Pantoprazole Sodium (Pantoprazole 40 Mg Tablet) 40 mg PO DAILY [facility] Last Admin: 01/27/21 09:15 Dose: 40 mg Documented by: Spironolactone (Spironolactone 25 Mg Tab) 12.5 mg PO DAILY [facility] Last Admin: 01/27/21 09:14 Dose: 12.5 mg Documented by: Tamsulosin HCl (Tamsulosin 0.4 Mg Cap.Er.24h) 0.4 mg PO PC-BRKFST [facility] Last Admin: 01/27/21 12:52 Dose: 0.4 mg Documented by: Past medical history to include: Erosions in the Stomach, Moderate Hiatal Hernia, Congestive Heart Failure with EF of 45%, GERD, Osteoarthritis, Hyperlipidemia, Insomnia, COPD, Gout, Chronic Kidney Disease Stage III, DO NOT RESUSCITATE Social History: Until a Year Ago Patient Was Smoking 2 Small Cigars a Day. Retired.@[employer]. Family history: Reviewed, noncontributory to presentation Physical examination: VITAL SIGNS: 97.7, 64, 20, 102/49, 98% on 2 L GENERAL: He planning in bed, awake, more comfortable EYES: Pupils equal. Conjunctiva pale. HEENT: External appearance of nose and ears normal, oral cavity grossly normal. Decreased hearing NECK: JVD possibly raised; masses not palpable. HEART: First and second heart sounds are normal; no edema. LUNGS: Respiratory rate increased, diminished breath sounds ABDOMEN: Soft, nontender, liver spleen not palpable, no masses palpable. PSYCH: Alert and oriented x3; mood and affect less anxious INVESTIGATIONS, reviewed in the clinical context: January 27: WBC 13.4 hemoglobin 8.5 platelets 213 potassium 4.1 by mouth 109 creatinine 1.9 Renal ultrasound: Right kidney small in size. WBC 12.2 hemoglobin 6.5 platelets 212 potassium 4.3 BUN 111 creatinine 1.93 Troponin I 0.07 0.082 UA negative Ultrasound lower extremity: Negative for DVT Chest x-ray film personally reviewed by me-pulmonary edema EKG tracing junctional rhythm. Rate of 57 some nonspecific Previous labs: October 2020 patient of BUN of 34 creatinine 1.24 Assessment and plan: - -Acute on chronic congestive heart failure exacerbation from systolic dysfunction EF 45%: Improving IV Lasix 80 mg every 12. Changing over 20 to oral Lasix 60 mg twice a day -Acute kidney injury likely ATN from cardiorenal syndrome.: Slow to respond Follow-up with nephrology -Atrophic right kidney -Moderate hiatal hernia -Primary osteoarthritis multiple joints bilaterally Pain medications. -Hyperlipidemia Lipitor 20 mg daily at bedtime -Chronic insomnia for multiple medical problems Melatonin 6 mg daily at bedtime -COPD in a previous smoker DuoNeb 3 times a day -Chronic kidney disease stage III likely nephrosclerosis Nephrology consult -DO NOT RESUSCITATE Patient changed to oral Lasix 60 mg twice a day. Patient may have peripheral neuropathy. We will try a small dose of Neurontin. Discussed with the patient. Discussed with patient's nephew Dr. Ma. Spoke to the nurse. Repeat labs tomorrow. Total time spent today about 40 minutes with over 25 minutes of discussion.
[2021-01-27] MEDS: ATORVASTATIN 20 MG TAB PO SCH ×2 (20:19→21:03)
[2021-01-27] MEDS: MELATONIN 3 MG TABLET PO SCH (21:03)
[2021-01-27 21:09] LABS: % Iron Saturation 6.28 (15.00-50.00)
[2021-01-27 22:12] VITALS: RESP 18
[2021-01-28] MEDS: MIDODRINE 5 MG TAB PO SCH ×3 (06:16→17:39)
--- NOTE | 2021-01-28 07:55 | XR ---
EXAMINATION TYPE: XR chest 2V DATE OF EXAM: 01/28/2021 COMPARISON: Chest x-ray 2 days ago HISTORY: Difficulty breathing and CHF. TECHNIQUE: Frontal and lateral views of the chest are obtained. FINDINGS: There is background chronic parenchymal change with improved bilateral perihilar opacities . Improved bilateral interstitial prominence. No new significant pleural effusion or pneumothorax see n. Stable cardiomegaly with atherosclerotic and ectatic thoracic aorta. Retrocardiac opacity suggest s moderate size hiatal hernia. The osseous structures are somewhat demineralized. Overlying EKG leads redemonstrated. IMPRESSION: Improved bilateral alveolar and interstitial edema consistent with resolving CHF exacerb ation. Correlate clinically.
[2021-01-28 08:22] LABS: Calcium 9.9 mg/dL (8.4-10.2); Magnesium 2.4 mg/dL (1.6-2.3); Potassium 3.9 mmol/L (3.5-5.1)
[2021-01-28] MEDS: PANTOPRAZOLE 40 MG TABLET PO SCH (08:59)
[2021-01-28] MEDS: FUROSEMIDE 20 MG TAB PO SCH ×3 (08:59→19:03)
[2021-01-28] MEDS: TAMSULOSIN 0.4 MG CAP.ER.24H PO SCH (08:59)
[2021-01-28] MEDS: CYANOCOBALAMIN 500 MCG TAB PO SCH (08:59)
[2021-01-28] MEDS: METOPROLOL SUCCINATE (ER) 25 MG TAB.ER.24H PO SCH (08:59)
[2021-01-28] MEDS: allopurinoL 100 MG TAB PO SCH ×2 (08:59→21:32)
[2021-01-28] MEDS: DICLOFENAC SODIUM GEL 100 GM TUBE TOPICAL SCH ×4 (09:00→21:32)
[2021-01-28] MEDS: SPIRONOLACTONE 25 MG TAB PO SCH (09:00)
[2021-01-28] MEDS: MENTHOL-ZINC OXIDE OINT 113 GM TUBE TOPICAL SCH (09:01)
[2021-01-28] MEDS: MIRABEGRON 25 MG PO SCH (09:01)
[2021-01-28 13:48] VITALS: BMI 25.0
--- NOTE | 2021-01-28 14:31 | P.PN ---
Subjective This is a 89-year-old male past medical history of moderate to severe aortic stenosis, CVA, chronic atrial fibrillation, hyperlipidemia, hypertension former smoker. He follows in the office with Dr. Fiore. Patient presents to the hospital with complaints of decreased energy and generalized weakness, cough. He also had some symptoms of shortness of breath. Patient had a recent admission in October 2020 with severe symptomatic anemia requiring 2 units of PRBCs. Echocardiogram July 2020 revealed EF of 37%, severe stenosis, severe pulmonary hypertension, moderate severe tricuspid regurgitation, mild to moderate mitral regurgitation. Admission patient found to be anemic with hemoglobin 6.2 status post 1 unit PRBCs. His Eliquis, hold. Laboratory data reviewed sodium 135, potassium 3.9, BUN 125, serum and 1.9. Chest x-ray with improvement bilateral interstitial edema. Blood pressure 110/51, heart 60, afebrile, maintaining oxygen saturations on room air. GENERAL: In on acute distress NECK: Supple without JVD or thyromegaly. LUNGS: Breath sounds diminished to auscultation bilaterally. Respiration equal and unlabored. No wheezes, rales or rhonchi. HEART: Regular rate and rhythm Systoic ejection murmur at base, No rubs or ga llops. S1 and S2 heard. EXTREMITIES: Normal range of motion, no edema. No clubbing or cyanosis. Per ipheral pulses intact. ASSESSMENT Acute systolic heart failure exacerbation Moderate to severe aortic stenosis Elevated troponin, not indicative of acute coronary syndrome Acute on chronic kidney disease History of CVA Non-ischemic cardiomyopathy Chronic atrial fibrillation Eliquis on hold due to anemia Hyperlipidemia Hypertension Former smoker PLAN -Continue Lasix 60mg BID -Continue to monitor I/Os, daily weights -Monitor renal function and electrolytes -Continue to hold Eliquis -Continue statin, toprol and pironolactone -Further recommendations based on clinical course Objective - Vital Signs Vital signs: Vital Signs Temp 97.8 F 01/28/21 08:00 Pulse 68 01/28/21 08:00 Resp 18 01/28/21 08:00 BP 110/51 01/28/21 08:00 Pulse Ox 98 01/28/21 08:00 Intake & Output 01/27/21 01/28/21 01/28/21 18:59 06:59 18:59 Intake Total 660 10 480 Output Total 1300 775 425 Balance -640 -765 55 Weight 64 kg 64 kg Intake: IV 10 0.9 10 Oral 660 480 Output: Urine 1300 775 425 Other: Voiding Method Indwelling Catheter Indwelling Catheter Indwelling Catheter # Bowel Movements 1 - Labs CBC & Chem 7: 01/27/21 07:17 01/28/21 07:32 Labs: Abnormal Lab Results - Last 24 Hours (Table) 01/27/21 01/28/21 Range/Units 07:17 07:32 Sodium 135 L (137-145) mmol/L Chloride 97 L (98-107) mmol/L BUN 125 H* (9-20) mg/dL Creatinine 1.95 H (0.66-1.25) mg/dL Glucose 124 H (74-99) mg/dL Magnesium 2.4 H (1.6-2.3) mg/dL Iron 34 L (65-175) ug/dL TIBC 542 H (228-460) ug/dL % Saturation 6.28 L (15.00-50.00) Transferrin 387.0 H (204.0-354.0) mg/dL
--- NOTE | 2021-01-28 20:04 | P.PN ---
Progress Note - Text Progress Note Date: 01/28/21 Chief Complaint: Short of breath History of presenting complaint: This is a pleasant 89-year-old patient, of Dr. Rollins whose chronic stable medical conditions include GERD, primary osteoarthritis, hyperlipidemia, chronic insomnia, COPD in a previous smoker, chronic gout, and a core status of DO NOT RESUSCITATE. Patient presents with 3 days of progressive increasing shortness of breath. Tired rundown. Minimal cough. No sputum production. No fever no chills. Tracey etite is fair. Patient has about to 3 bowel movements a day. Because of lack status. Normally was able to go down very lives to get his food has not been able to do the same because of feeling weak and tired. Patient was here in September of this year. Was found to anemia. EGD: Showed duodenal polyp that was biopsied, moderate size hiatal hernia and John on a lotions. Some colon polyps were also biopsied. By Dr. Yves Hilario Patient now presents with a hemoglobin of 6.9. 1 unit of blood was ordered in the ER. Patient unable to tell if he has any blood in his stools. Back in September patient did receive 2 units of blood. Patient also been having 3-4 bowel movements a day. Was receiving a laxative. Admitted with acute CHF exacerbation, acute kidney injury from ATN from cardiorenal syndrome, diarrhea from laxatives and increasing medical debility. Did receive 2 units of blood. January 27: Breathing better. No further diarrhea. Feeling better. Oral intake good. Patient wanted to sit up in a chair. I spoke to patient's nephew Dr. bernal and gave him an update. Patient has been complaining of pain in his lower extremities. Appears to be more neuropathic. Has been changed over to oral Lasix January 28: Patient slept very well last night. Stated test to be sleepy that for a very long time. Lower extremity pain well controlled. Oral intake improving. Lasix and being followed by cardiology and nephrology. Care was discussed with the patient. We'll have him up in a chair. Oral intake about 75%. Review of systems: Was done for constitutional, cardiovascular, GI, pulmonary. relevant finding as above Active Medications Acetaminophen (Acetaminophen Tab 500 Mg Tab) 500 mg PO Q4H PRN PRN Reason: Pain Last Admin: 01/27/21 15:07 Dose: 500 mg Documented by: Allopurinol (Allopurinol 100 Mg Tab) 100 mg PO BID [facility] Last Admin: 01/28/21 08:59 Dose: 100 mg Documented by: Atorvastatin Calcium (Atorvastatin 20 Mg Tab) 20 mg PO [facility] Last Admin: 01/27/21 21:03 Dose: Not Given Documented by: Calamine/Phenol (Menthol-Zinc Oxide Oint 113 Gm Tube) 1 applic TOPICAL DAILY [facility]; Protocol Last Admin: 01/28/21 09:01 Dose: 1 applic Documented by: Cyanocobalamin (Cyanocobalamin 500 Mcg Tab) 500 mcg PO DAILY [facility] Last Admin: 01/28/21 08:59 Dose: 500 mcg Documented by: Diclofenac Sodium (Diclofenac Sodium Gel 100 Gm Tube) 4 gm TOPICAL QID [facility]; Protocol Last Admin: 01/28/21 17:39 Dose: 4 gm Documented by: Furosemide (Furosemide 20 Mg Tab) 60 mg PO BID@0900,1600 [facility] Last Admin: 01/28/21 19:03 Dose: Not Given Documented by: Gabapentin (Gabapentin 100 Mg Cap) 100 mg PO [facility] Melatonin (Melatonin 3 Mg Tablet) 6 mg PO [facility] Last Admin: 01/27/21 21:03 Dose: Not Given Documented by: Metoprolol Succinate (Metoprolol Succinate (Er) 25 Mg Tab.Er.24h) 12.5 mg PO DAILY [facility] Last Admin: 01/28/21 08:59 Dose: 12.5 mg Documented by: Midodrine (Midodrine 5 Mg Tab) 10 mg PO AC-TID [facility] Last Admin: 01/28/21 17:39 Dose: 10 mg Documented by: Patient's Own ( Mirabegron [ Myrbetriq] 25 Mg Tablet) 25 mg PO DAILY [facility] Last Admin: 01/28/21 09:01 Dose: Not Given Documented by: Pantoprazole Sodium (Pantoprazole 40 Mg Tablet) 40 mg PO DAILY [facility] Last Admin: 01/28/21 08:59 Dose: 40 mg Documented by: Spironolactone (Spironolactone 25 Mg Tab) 12.5 mg PO DAILY [facility] Last Admin: 01/28/21 09:00 Dose: 12.5 mg Documented by: Tamsulosin HCl (Tamsulosin 0.4 Mg Cap.Er.24h) 0.4 mg PO -BRKFST [facility] Last Admin: 01/28/21 08:59 Dose: 0.4 mg Documented by: Past medical history to include: Erosions in the Stomach, Moderate Hiatal Hernia, Congestive Heart Failure with EF of 45%, GERD, Osteoarthritis, Hyperlipidemia, Insomnia, COPD, Gout, Chronic Kidney Disease Stage III, DO NOT RESUSCITATE Social History: Until a Year Ago Patient Was Smoking 2 Small Cigars a Day. Retired.@[employer]. Family history: Reviewed, noncontributory to presentation Physical examination: VITAL SIGNS: 97.5, 70, 18, 96% on room air GENERAL: Laying in bed, awake, comfortable EYES: Pupils equal. Conjunctiva pale. HEENT: External appearance of nose and ears normal, oral cavity grossly normal. Decreased hearing NECK: JVD possibly raised; masses not palpable. HEART: First and second heart sounds are normal; no edema. LUNGS: Respiratory rate increased, diminished breath sounds ABDOMEN: Soft, nontender, liver spleen not palpable, no masses palpable. PSYCH: Alert and oriented x3; mood and affect better INVESTIGATIONS, reviewed in the clinical context: January 28: Potassium 3.9 BUN 125 creatinine 1.95 January 27: WBC 13.4 hemoglobin 8.5 platelets 213 potassium 4.1 by mouth 109 creatinine 1.9 Renal ultrasound: Right kidney small in size. WBC 12.2 hemoglobin 6.5 platelets 212 potassium 4.3 BUN 111 creatinine 1.93 Troponin I 0.07 0.082 UA negative Ultrasound lower extremity: Negative for DVT Chest x-ray film personally reviewed by me-pulmonary edema EKG tracing junctional rhythm. Rate of 57 some nonspecific Previous labs: October 2020 patient of BUN of 34 creatinine 1.24 Assessment and plan: -Acute on chronic congestive heart failure exacerbation from systolic dysfunction EF 45%: Better IV Lasix 80 mg every 12. Currently on Lasix 60 mg twice a day -Acute kidney injury likely ATN from cardiorenal syndrome.: Slow to respond Follow-up with nephrology -Atrophic right kidney -Moderate hiatal hernia -Primary osteoarthritis multiple joints bilaterally Pain medications. -Hyperlipidemia Lipitor 20 mg daily at bedtime -Chronic insomnia for multiple medical problems Melatonin 6 mg daily at bedtime -COPD in a previous smoker DuoNeb 3 times a day -Chronic kidney disease stage III likely nephrosclerosis Nephrology consult -DO NOT RESUSCITATE -Peripheral neuropathy Responding to Neurontin. Continue with Neurontin 100 mg daily at bedtime. Lasix dose is being followed by cardiology and nephrology. Other medications to continue. Discussed with the patient. Consult PTOT
[2021-01-28] MEDS ORDERED: GABAPENTIN 100 MG CAP PO SCH (21:00)
[2021-01-28] MEDS: ATORVASTATIN 20 MG TAB PO SCH (21:32)
[2021-01-28] MEDS: MELATONIN 3 MG TABLET PO SCH (21:39)
[2021-01-29 01:07] VITALS: TEMP 97.6
[2021-01-29] MEDS: MIDODRINE 5 MG TAB PO SCH ×2 (06:32→11:37)
[2021-01-29 07:47] VITALS: PULSE 62
[2021-01-29] MEDS: ACETAMINOPHEN TAB 500 MG TAB PO PRN (07:53)
[2021-01-29] MEDS: allopurinoL 100 MG TAB PO SCH (07:53)
[2021-01-29] MEDS: TAMSULOSIN 0.4 MG CAP.ER.24H PO SCH (07:53)
[2021-01-29] MEDS: CYANOCOBALAMIN 500 MCG TAB PO SCH (07:54)
[2021-01-29] MEDS: METOPROLOL SUCCINATE (ER) 25 MG TAB.ER.24H PO SCH (07:54)
[2021-01-29] MEDS: FUROSEMIDE 20 MG TAB PO SCH (07:54)
[2021-01-29] MEDS: SPIRONOLACTONE 25 MG TAB PO SCH (07:54)
[2021-01-29] MEDS: PANTOPRAZOLE 40 MG TABLET PO SCH (07:54)
[2021-01-29] MEDS: MIRABEGRON 25 MG PO SCH (07:55)
[2021-01-29] MEDS: DICLOFENAC SODIUM GEL 100 GM TUBE TOPICAL SCH ×2 (07:55→11:37)
[2021-01-29] MEDS: MENTHOL-ZINC OXIDE OINT 113 GM TUBE TOPICAL SCH (07:56)
[2021-01-29 08:38] LABS: Calcium 9.5 mg/dL (8.4-10.2); Potassium 4.2 mmol/L (3.5-5.1)
[2021-01-29] MEDS ORDERED: SODIUM FERRIC GLUCONAT-SUCROSE 125 MG in SODIUM CHLORIDE 0.9% 100 ML IVPB SCH (10:00)
--- NOTE | 2021-01-29 11:32 | PN ---
PROGRESS NOTE Patient is seen for followup for acute kidney injury on top of chronic kidney disease. Patient had urine retention, currently has an indwelling Lange catheter with good urine output. Urine output was about 2.0 L for 24 hours. Serum creatinine is staying stable at about 1.9. On examination today, patient is comfortable. Blood pressure 110/51, heart rate 68 per minute. He is afebrile. EXAMINATION OF THE HEART: S1 and S2. EXAMINATION OF LUNGS: Bilateral breath sounds are heard. Abdomen is soft, nontender. Examination of lower extremities shows no evidence of edema. 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 Labs show sodium 135, potassium 3.9, chloride 97, BUN 125, creatinine 1.95. Hemoglobin was 8.5 on 01/27/2021. ASSESSMENT: 1. Acute kidney injury associated with severe anemia and some degree of urine retention, currently stable; creatinine staying at 1.9, good urine output. Patient has an indwelling Lange catheter. Ultrasound shows left kidney is atrophic. UA is benign. 2. Urine retention, currently with an indwelling Lange catheter. 3. Acute blood loss anemia, status post packed RBCs transfusion. No active bleeding noted. 4. Volume overload, improved with diuresis. 5. Left atrophic kidney. 6. Congestive heart failure, ejection fraction not known. Status post diuresis, currently maintained on Lasix 60 mg p.o. b.i.d. 7. Chronic hypotension, maintained on midodrine. Blood pressure remains about 110 to 115 mmHg systolic. PLAN: Decrease Lasix in a.m. if the BUN is higher. Chest x-ray currently shows improving CHF. MMODL / IJN: [id number] /
[2021-01-29 11:35] VITALS: BP 99/52
--- NOTE | 2021-01-29 13:57 | P.PN ---
Subjective Progress Note Date: 01/29/21 HISTORY OF PRESENT ILLNESS: This is a 89-year-old male past medical history of moderate to severe aortic stenosis, CVA, chronic atrial fibrillation, hyperlipidemia, hypertension former smoker. He follows in the office with Dr. Fiore. Patient presents to the hospital with complaints of decreased energy and generalized weakness, cough. He also had some symptoms of shortness of breath. Patient had a recent admission in October 2020 with severe symptomatic anemia requiring 2 units of PRBCs. Echocardiogram July 2020 revealed EF of 37%, severe stenosis, severe pulmonary hypertension, moderate severe tricuspid regurgitation, mild to moderate mitral regurgitation. Admission patient found to be anemic with hemoglobin 6.2 status post 1 unit PRBCs. His Eliquis, hold. Laboratory data reviewed sodium 135, potassium 3.9, BUN 125, serum and 1.9. Chest x-ray with improvement bilateral interstitial edema. 01/29/2021 Patient examined at the bedside with Dr. Tobias. Patient denies chest pain or pressure. He denies shortness of breath. His Eliquis remains on hold. Lasix dosing per nephrology which has been decreased to 40 mg twice a day. PHYSICAL EXAM: VITAL SIGNS: Reviewed. GENERAL: Well-developed in no acute distress. NECK: Supple. No JVD or thyromegaly LUNGS: Respirations even and unlabored. Lungs diminished to auscultation bonnie aterally. HEART: Irregular rate and rhythm. S1 and S2 heard. Systolic murmur noted. EXTREMITIES: Normal range of motion. No clubbing or cyanosis. Peripheral pulses intact. No lower extremity edema ASSESSMENT: Acute systolic heart failure exacerbation Moderate to severe aortic stenosis Elevated troponin, not indicative of acute coronary syndrome Acute on chronic kidney disease History of CVA Non-ischemic cardiomyopathy Chronic atrial fibrillation Eliquis on hold due to anemia Hyperlipidemia Hypertension Former smoker PLAN: Continue to hold Eliquis Continue Lasix dosing per nephrology Patient is currently stable from a cardiac standpoint We will sign off. Please reconsult if needed. Nurse practitioner note has been reviewed by physician. Signing provider agrees with the documented findings, assessment, and plan of care. Objective - Vital Signs Vital signs: Vital Signs Temp 97.6 F 01/29/21 04:00 Pulse 62 01/29/21 07:46 Resp 18 01/29/21 07:46 BP 99/52 01/29/21 11:34 Pulse Ox 96 01/29/21 07:46 Intake & Output 01/28/21 01/29/21 01/29/21 18:59 06:59 18:59 Intake Total 720 10 180 Output Total 1075 920 200 Balance -355 -910 -20 Weight 64 kg 65 kg Intake: IV 10 Invasive Line 1 10 Oral 720 180 Output: Urine 1075 920 200 Uretheral (Lange) 200 Other: Voiding Method Indwelling Catheter Indwelling Catheter Indwelling Catheter # Voids 1 - Labs CBC & Chem 7: 01/27/21 07:17 01/29/21 07:46 Labs: Abnormal Lab Results - Last 24 Hours (Table) 01/29/21 Range/Units 07:46 Sodium 133 L (137-145) mmol/L Chloride 96 L (98-107) mmol/L BUN 113 H* (9-20) mg/dL Creatinine 2.02 H (0.66-1.25) mg/dL Glucose 162 H (74-99) mg/dL
[2021-01-29] MEDS ORDERED: FUROSEMIDE 40 MG TAB PO SCH (16:00)
--- NOTE | 2021-01-29 17:44 | P.DS ---
Providers Date of admission: 01/26/21 12:59 Expected date of discharge: 01/29/21 Attending physician: Obi Saini Consults: 01/26/21 19:45 Consult Physician Routine Consulting Provider: Catracho Booker Consult Reason/Comments: HARRIETT Do you want consulting provider notified?: Yes [facility] Course: Chief Complaint: Short of breath History of presenting complaint: This is a pleasant 89-year-old patient, of Dr. Rollins whose chronic stable medical conditions include GERD, primary osteoarthritis, hyperlipidemia, chronic insomnia, COPD in a previous smoker, chronic gout, and a core status of DO NOT RESUSCITATE. Patient presents with 3 days of progressive increasing shortness of breath. Tired rundown. Minimal cough. No sputum production. No fever no chills. Appetite is fair. Patient has about to 3 bowel movements a day. Because of lack status. Normally was able to go down very lives to get his food has not been able to do the same because of feeling weak and tired. Patient was here in September of this year. Was found to anemia. EGD: Showed duodenal polyp that was biopsied, moderate size hiatal hernia and John on a lotions. Some colon polyps were also biopsied. By Dr. Yves Hilario Patient now presents with a hemoglobin of 6.9. 1 unit of blood was ordered in the ER. Patient unable to tell if he has any blood in his stools. Back in September patient did receive 2 units of blood. Patient also been having 3-4 bowel movements a day. Was receiving a laxative. Admitted with acute CHF exacerbation, acute kidney injury from ATN from cardiorenal syndrome, diarrhea from laxatives and increasing medical debility. Did receive 2 units of blood. January 27: Breathing better. No further diarrhea. Feeling better. Oral intake good. Patient wanted to sit up in a chair. I spoke to patient's nephew Dr. bernal and gave him an update. Patient has been complaining of pain in his lower extremities. Appears to be more neuropathic. Has been changed over to oral Lasix January 28: Patient slept very well last night. Stated test to be sleepy that for a very long time. Lower extremity pain well controlled. Oral intake improving. Lasix and being followed by cardiology and nephrology. Care was discussed with the patient. We'll have him up in a chair. Oral intake about 75%. January 29: Sitting up in a chair. Eating his lunch. Fair appetite. Breathing stable. Lange catheter to be discontinued. Patient underwent did not sleep too well because did not like the bed. I decided to stop the Neurontin. Patient has been cleared by cardiology and nephrology. Patient did receive IV iron. I also spoke to patient's nephew Dr. bernal. Given up into the clinical picture. Questions were answered and discussed. Discussion and discharge planning more than 35 minutes Consultation: [facility] Past medical history to include: Erosions in the Stomach, Moderate Hiatal Hernia, Congestive Heart Failure with EF of 45%, GERD, Osteoarthritis, Hyperlipidemia, Insomnia, COPD, Gout, Chronic Kidney Disease Stage III, DO NOT RESUSCITATE Social History: Until a Year Ago Patient Was Smoking 2 Small Cigars a Day. Retired.@[employer]. Family history: Reviewed, noncontributory to presentation Physical examination: VITAL SIGNS: 97.6, 62, 18, 96/43, 96% on 2 L GENERAL: Sitting up in a chair, eating, comfortable EYES: Pupils equal. Conjunctiva pale. HEENT: External appearance of nose and ears normal, oral cavity grossly normal. Decreased hearing NECK: JVD possibly raised; masses not palpable. HEART: First and second heart sounds are normal; no edema. LUNGS: Respiratory rate increased, diminished breath sounds ABDOMEN: Soft, nontender, liver spleen not palpable, no masses palpable. PSYCH: Alert and oriented x3; mood and affect better INVESTIGATIONS, reviewed in the clinical context: January 29: Sodium 133 potassium 4.2 BUN 113 creatinine 2.02 January 28: Potassium 3.9 BUN 125 creatinine 1.95 January 27: WBC 13.4 hemoglobin 8.5 platelets 213 potassium 4.1 by mouth 109 creatinine 1.9 Renal ultrasound: Right kidney small in size. WBC 12.2 hemoglobin 6.5 platelets 212 potassium 4.3 BUN 111 creatinine 1.93 Troponin I 0.07 0.082 UA negative Ultrasound lower extremity: Negative for DVT Chest x-ray film personally reviewed by me-pulmonary edema EKG tracing junctional rhythm. Rate of 57 some nonspecific Previous labs: October 2020 patient of BUN of 34 creatinine 1.24 Assessment and plan: -Acute on chronic congestive heart failure exacerbation from systolic dysfunction EF 45%: Better IV Lasix 80 mg every 12. Currently on Lasix 60 mg twice a day -Acute kidney injury likely ATN from cardiorenal syndrome.: Slow to respond Follow-up with nephrology -Atrophic right kidney -Moderate hiatal hernia -Primary osteoarthritis multiple joints bilaterally Pain medications. -Hyperlipidemia Lipitor 20 mg daily at bedtime -Chronic insomnia for multiple medical problems Melatonin 6 mg daily at bedtime -COPD in a previous smoker DuoNeb 3 times a day -Chronic kidney disease stage III likely nephrosclerosis Nephrology consult -DO NOT RESUSCITATE -Iron deficiency anemia IV iron given Disposition: Assisted-living, [facility] Plan - Discharge Summary Discharge Rx Participant: No New Discharge Prescriptions: New Spironolactone [Aldactone] 12.5 mg PO DAILY #30 tablet Furosemide [Lasix] 40 mg PO BID@0900,1600 #60 tab Continue Menthol-Zinc Oxide Oint [Calmoseptine Oint] 1 applic TOPICAL DAILY Acetaminophen Tab [Tylenol] 500 mg PO Q4H PRN PRN Reason: Pain Cyanocobalamin [Vitamin B-12] 500 mcg PO DAILY Ferrous Gluconate 324 mg PO DAILY@1130 Diclofenac Sodium Gel [Voltaren Gel] 4 gm TOPICAL QID Albuterol Nebulized [Ventolin Nebulized] 2.5 mg INHALATION RT-TID Loperamide [Imodium] 2 - 4 mg PO QID PRN PRN Reason: Diarrhea Liquacel 30 ml PO BID Aspirin EC [Ecotrin Low Dose] 81 mg PO DAILY Cholecalciferol [Vitamin D3 (25 Mcg = 1000 Iu)] 25 mcg PO DAILY Rosuvastatin [Crestor] 10 mg PO HS Omeprazole 20 mg PO DAILY Midodrine HCl [ProAmatine] 10 mg PO AC-TID Metoprolol Succinate [Toprol XL] 12.5 mg PO DAILY Melatonin 6 mg PO HS Fluticasone/Vilanterol [Breo Ellipta 100-25 Mcg Inhaler] 1 puff INHALATION RT-DAILY Allopurinol [Zyloprim] 100 mg PO BID Albuterol Inhaler [Ventolin Hfa Inhaler] 1 puff INHALATION RT-Q4H PRN PRN Reason: Shortness Of Breath Mirabegron [Myrbetriq] 25 mg PO DAILY Lactose-Reduced Food [Boost] 237 ml PO DAILY Discontinued Sennosides/Docusate Sodium [Senna Plus 8.6-50 mg Tablet] 2 tab PO HS Apixaban [Eliquis] 2.5 mg PO BID Spironolactone [Aldactone] 25 mg PO DAILY #30 tab guaiFENesin [Mucinex] 600 mg PO BID PRN PRN Reason: COUGH/CONGESTION Furosemide [Lasix] 80 mg PO DAILY Discharge Medication List Acetaminophen Tab [Tylenol] 500 mg PO Q4H PRN 10/24/20 [History] Albuterol Inhaler [Ventolin Hfa Inhaler] 1 puff INHALATION RT-Q4H PRN 10/24/20 [History] Allopurinol [Zyloprim] 100 mg PO BID 10/24/20 [History] Cholecalciferol [Vitamin D3 (25 Mcg = 1000 Iu)] 25 mcg PO DAILY 10/24/20 [History] Cyanocobalamin [Vitamin B-12] 500 mcg PO DAILY 10/24/20 [History] Ferrous Gluconate 324 mg PO DAILY@1130 10/24/20 [History] Fluticasone/Vilanterol [Breo Ellipta 100-25 Mcg Inhaler] 1 puff INHALATION RT- DAILY 10/24/20 [History] Melatonin 6 mg PO HS 10/24/20 [History] Menthol-Zinc Oxide Oint [Calmoseptine Oint] 1 applic TOPICAL DAILY 10/24/20 [History] Metoprolol Succinate [Toprol XL] 12.5 mg PO DAILY 10/24/20 [History] Midodrine HCl [ProAmatine] 10 mg PO AC-TID 10/24/20 [History] Omeprazole 20 mg PO DAILY 10/24/20 [History] Rosuvastatin [Crestor] 10 mg PO HS 10/24/20 [History] Albuterol Nebulized [Ventolin Nebulized] 2.5 mg INHALATION RT-TID 01/26/21 [History] Aspirin EC [Ecotrin Low Dose] 81 mg PO DAILY 01/26/21 [History] Diclofenac Sodium Gel [Voltaren Gel] 4 gm TOPICAL QID 01/26/21 [History] Lactose-Reduced Food [Boost] 237 ml PO DAILY 01/26/21 [History] Liquacel 30 ml PO BID 01/26/21 [History] Loperamide [Imodium] 2 - 4 mg PO QID PRN 01/26/21 [History] Mirabegron [Myrbetriq] 25 mg PO DAILY 01/26/21 [History] Furosemide [Lasix] 40 mg PO BID@0900,1600 #60 tab 01/29/21 [Rx] Spironolactone [Aldactone] 12.5 mg PO DAILY #30 tablet 01/29/21 [Rx] Follow up Appointment(s)/Referral(s): Tracy Lovell MD [STAFF PHYSICIAN] - 02/01/21 10:00 am (WITH NURSING CENTER TUTOR THURSDAY APPOINTMENT CANCELLED) Юлия Fiore MD [STAFF PHYSICIAN] - 02/06/21 10:15 am (THURSDAY APPOINTMENT CANCELLED) Jose Rollins MD [Primary Care Provider] - 01/30/21 (THEY WILL CALL WITH A TIME FOR VISIT) Patient Instructions/Handouts: Pulmonary Edema (DC), Acute Kidney Injury (DC) Activity/Diet/Wound Care/Special Instructions: Patient will need a WC van home at d/c. bmp - 5 days Discharge Disposition: TRANSFER TO SNF/ECF
--- NOTE | 2021-01-29 18:12 | PN ---
PROGRESS NOTE Patient is seen for followup for acute kidney injury, cardiorenal syndrome and urine retention. Serum creatinine has been stable at about 1.9 to 2 mg/dL. Patient has been maintained on oral Lasix at 60 mg p.o. b.i.d. On examination today, blood pressure 99/52, heart rate of 62 per minute. Patient is afebrile. EXAMINATION OF THE HEART: S1 and S2. EXAMINATION OF LUNGS: Decreased breath sounds at the bases. Abdomen is soft, non-tender. Examination of lower extremities shows 1+ edema bilaterally. TRANSPORTATION SALES CONSULTANT EXAM: Grossly intact. Labs show sodium 133, potassium 4.2, chloride 96, BUN 113, serum creatinine 2.0. ASSESSMENT: 1. Acute kidney injury, cardiorenal and urine retention, currently with Lange catheter. Maintained on oral Lasix. BUN has been elevated. Patient is not on steroids and there is no active bleeding noted. I will decrease the Lasix to 40 mg b.i.d., but his volume status will need to be monitored closely as outpatient. 2. 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 3. Urine retention, currently with indwelling Lange catheter. 4. Acute blood loss anemia, status post packed RBCs transfusion. No active bleeding noted. 5. Volume overload, improved with diuresis. PLAN: Decrease Lasix to 40 mg b.i.d., but monitor closely as outpatient for adjustment of diuretics based on volume status and weight. MMODL / IJN: [id number] /
== END 2021-01-29 16:25 | DRG 291 ==
LOC: EC 09:42 → 3SCARD 12:59
PROVIDERS: ADMIT Hospitalist; ATTEND Hospitalist
PROC: 30233N1 Transfusion of Nonautologous Red Blood Cells into Peripheral Vein, Percutaneous Approach (ICD-10-PCS; principal; 2021-01-26)
DX: I13.0 Hypertensive heart and chronic kidney disease with heart failure and stage 1 through stage 4 chronic kidney disease, or unspecified chronic kidney disease (principal); J81.0 Acute pulmonary edema; N17.0 Acute kidney failure with tubular necrosis; I50.23 Acute on chronic systolic (congestive) heart failure; D62 Acute posthemorrhagic anemia; E87.1 Hypo-osmolality and hyponatremia; I48.20 Chronic atrial fibrillation, unspecified; G81.90 Hemiplegia, unspecified affecting unspecified side; I42.8 Other cardiomyopathies; F51.04 Psychophysiologic insomnia; G62.9 Polyneuropathy, unspecified; I08.3 Combined rheumatic disorders of mitral, aortic and tricuspid valves; D50.9 Iron deficiency anemia, unspecified; E78.5 Hyperlipidemia, unspecified; Z66 Do not resuscitate; M1A.9XX0 Chronic gout, unspecified, without tophus (tophi); J44.9 Chronic obstructive pulmonary disease, unspecified; K21.9 Gastro-esophageal reflux disease without esophagitis; I27.20 Pulmonary hypertension, unspecified; I95.89 Other hypotension; K44.9 Diaphragmatic hernia without obstruction or gangrene; M15.9 Polyosteoarthritis, unspecified; N18.9 Chronic kidney disease, unspecified; Z87.891 Personal history of nicotine dependence; Z79.01 Long term (current) use of anticoagulants; Z79.899 Other long term (current) drug therapy; Z79.82 Long term (current) use of aspirin; Z86.73 Personal history of transient ischemic attack (TIA), and cerebral infarction without residual deficits; Z86.010 Personal history of colon polyps
CPT/HCPCS: 36415; 71046; 76770; 80048; 80053; 81003; 82728; 83540; 83550; 83605; 83735; 83880; 84484; 85025; 85027; 85379; 85610; 85730; 86850; 86900; 86901; 86920; 87635; 93005; 93970; 99291

== ENCOUNTER 2021-02-01 11:11 | Emergency (ER) | payer MEDICARE ==
[2021-02-01 12:44] LABS: Calcium 8.9 mg/dL (8.4-10.2); Total Bilirubin 0.8 mg/dL (0.2-1.3)
[2021-02-01 12:48] LABS: Anisocytosis Slight; Basophils % (A) 0 %; Eosinophils # (A) 0.5 k/uL (0-0.7); Eosinophils % (A) 6 %; Hypochromasia Moderate; Lymphocytes # (A) 0.8 k/uL (1.0-4.8); Lymphocytes % (A) 8 %; MCV 93.5 fL (80.0-100.0); Mean Platelet Volume 9.9; Monocytes # (A) 0.7 k/uL (0-1.0); Monocytes % (A) 8 %; Neutrophils # (A) 6.9 k/uL (1.3-7.7); Neutrophils % (A) 76 %; Platelet Count 227 k/uL (150-450); RBC 2.13 m/uL (4.30-5.90); WBC 9.1 k/uL (3.8-10.6)
--- NOTE | 2021-02-01 12:50 | ED ---
Recheck HPI - General Chief Complaint: Recheck/Abnormal Lab/Rx Stated Complaint: abn labs Time Seen by Provider: 02/01/21 11:56 Source: patient, EMS, RN notes reviewed, old records reviewed Mode of arrival: EMS Limitations: no limitations - History of Present Illness Initial Comments: Patient is an 89-year-old male with history of heart failure, kidney disease, anemia, presenting to the emergency department via EMS from [facility] for low hemoglobin. Patient was recently discharged from our facility 3 days ago after receiving a blood transfusion. His last hemoglobin level on 01/27/2021 was 8.5. This was rechecked 2 days ago on 01/30/2021, it resulted yesterday and his hemoglobin was 6.6. Patient was sent back in for low hemoglobin. Patient has no complaints, he is quite upset that his back in the hospital. He denies abdominal pain, no dark stools that he is aware of. He states he has been straining over the past couple days to have a bowel movement. She denies any chest pains or shortness of breath, he is normally on 2 L of O2. He denies any fevers or chills. He has no other complaints. His vitals are stable upon arrival. - Related Data Home Medications Medication Instructions Recorded Confirmed Acetaminophen Tab [Tylenol] 500 mg PO Q4H PRN 10/24/20 02/01/21 Albuterol Inhaler [Ventolin Hfa 1 puff INHALATION RT-Q4H PRN 10/24/20 02/01/21 Inhaler] Allopurinol [Zyloprim] 100 mg PO BID 10/24/20 02/01/21 Cholecalciferol [Vitamin D3 (25 25 mcg PO DAILY 10/24/20 02/01/21 Mcg = 1000 Iu)] Cyanocobalamin [Vitamin B-12] 500 mcg PO DAILY 10/24/20 02/01/21 Ferrous Gluconate 324 mg PO DAILY@1130 10/24/20 02/01/21 Fluticasone/Vilanterol [Breo 1 puff INHALATION RT-DAILY 10/24/20 02/01/21 Ellipta 100-25 Mcg Inhaler] Melatonin 6 mg PO HS 10/24/20 02/01/21 Menthol-Zinc Oxide Oint 1 applic TOPICAL DAILY 10/24/20 02/01/21 [Calmoseptine Oint] Metoprolol Succinate [Toprol XL] 12.5 mg PO DAILY 10/24/20 02/01/21 Midodrine HCl [ProAmatine] 10 mg PO AC-TID 10/24/20 02/01/21 Omeprazole 20 mg PO DAILY 10/24/20 02/01/21 Rosuvastatin [Crestor] 10 mg PO HS 10/24/20 02/01/21 Albuterol Nebulized [Ventolin 2.5 mg INHALATION RT-TID 01/26/21 02/01/21 Nebulized] Aspirin EC [Ecotrin Low Dose] 81 mg PO DAILY 01/26/21 02/01/21 Diclofenac Sodium Gel [Voltaren 4 gm TOPICAL QID 01/26/21 02/01/21 Gel] Lactose-Reduced Food [Boost] 237 ml PO DAILY 01/26/21 02/01/21 Liquacel 30 ml PO BID 01/26/21 02/01/21 Loperamide [Imodium] 2 - 4 mg PO QID PRN 01/26/21 02/01/21 Menthol/Zinc Oxide [Calmoseptine 1 applic TOPICAL DAILY 02/01/21 02/01/21 Ointment] Previous Rx's Medication Instructions Recorded Furosemide [Lasix] 40 mg PO BID@0900,1600 #60 tab 01/29/21 Spironolactone [Aldactone] 12.5 mg PO DAILY #30 tablet 01/29/21 Allergies Allergy/AdvReac Type Severity Reaction Status Date / Time Penicillins Allergy Severe Anaphylaxis Verified 02/01/21 14:00 Review of Systems ROS Statement: Those systems with pertinent positive or pertinent negative responses have been documented in the HPI. ROS Other: All systems not noted in ROS Statement are negative. Past Medical History Past Medical History: Cancer, Heart Failure, CVA/TIA, GERD/Reflux, Osteoarthritis (OA), Renal Disease Additional Past Medical History / Comment(s): insomnia, subarachnoid hemorrhage, hemiplegia and hemiparesis, dysphagia, gout, History of Any Multi-Drug Resistant Organisms: None Reported Past Surgical History: Unable to Obtain Past Anesthesia/Blood Transfusion Reactions: No Reported Reaction Past Psychological History: No Psychological Hx Reported Smoking Status: Former smoker Past Alcohol Use History: None Reported Past Drug Use History: None Reported - Past Family History Family Family Medical History: No Reported History General Exam - General Exam Comments Initial Comments: GENERAL: Patient is well-developed and well-nourished. Patient is nontoxic and in no acute distress. HEAD: Atraumatic, normocephalic. EYES: Pupils equal round and reactive to light, extraocular movements intact, sclera a nicteric, conjunctiva are normal. Eyelids were unremarkable. ENT: TMs normal, nares patent, oropharynx clear without exudates. Moist mucous membranes. NECK: Normal range of motion, supple without lymphadenopathy or JVD. LUNGS: Unlabored respirations. Breath sounds clear to auscultation bilaterally and equal. No wheezes rales or rhonchi. HEART: Regular rate and rhythm without murmurs, rubs or gallops. ABDOMEN: Soft, nontender, normoactive bowel sounds. No guarding, no rebound. No masses appreciated. : Deferred MUSCULOSKELETAL: Normal extremities with adequate strength and normal range of motion, no pitting or edema. No clubbing or cyanosis. NEUROLOGICAL: Patient is alert and oriented x 3. Motor and sensory are also intact. Cranial nerves II through XII grossly intact. Symmetrical smile. Normal speech, normal gait. PSYCH: Normal mood, normal affect. SKIN: Warm, Dry, normal turgor, no rashes or lesions noted. Limitations: no limitations Rectal exam: Present: normal inspection, heme (+) stool, black stool Course Vital Signs 02/01/21 02/01/21 02/01/21 11:13 12:15 14:53 Temperature 97.1 F L 98.1 F Pulse Rate 65 65 Respiratory 20 22 20 Rate Blood Pressure 105/39 104/47 O2 Sat by Pulse 98 95 Oximetry 02/01/21 02/01/21 15:03 15:33 Temperature 97.0 F L 97.3 F L Pulse Rate 63 65 Respiratory 20 20 Rate Blood Pressure 103/56 115/42 O2 Sat by Pulse 97 97 Oximetry Medical Decision Making - Medical Decision Making Patient is an 89-year-old male with history of heart failure, renal disease, anemia, presenting from EMS from [facility] for low hemoglobin. Patient was discharged discharge 3 days ago for same complaint. Recheck of his labs revealed a 6.6 hemoglobin 2 days ago. Patient has no complaints today, he is upset that he is back in the ER. His vital signs are stable. He has no abdominal pain. Labs today reveal a hemoglobin of 6.4 with hematocrit of 19.9, kidney function is at his baseline with creatinine of 1.74, BUN at 128. His stool occult is positive. I discussed this with patient's power of finance attorney, Dr. Schreiber, who is okay with patient being transfused and sent back to his facility. The patient is no longer on thinners and he has already had scoped performed. The patient does not want to stay here either. He was transfused with 1 unit and will be sent back to [facility]. He is agreeable to this plan of care. Return parameters were discussed with them and they verbalized understanding. Case discussed with Dr. Weinberg. - Lab Data Result diagrams: 02/01/21 12:09 02/01/21 12:09 Lab Results 02/01/21 02/01/21 02/01/21 Range/Units 12:08 12:09 12:09 WBC 9.1 (3.8-10.6) k/uL RBC 2.13 L (4.30-5.90) m/uL Hgb 6.4 L* D (13.0-17.5) gm/dL Hct 19.9 L* (39.0-53.0) % MCV 93.5 (80.0-100.0) fL MCH 30.0 (25.0-35.0) pg MCHC 32.0 (31.0-37.0) g/dL RDW 19.0 H (11.5-15.5) % Plt Count 227 (150-450) k/uL MPV 9.9 Neutrophils % 76 % Lymphocytes % 8 % Monocytes % 8 % Eosinophils % 6 % Basophils % 0 % Neutrophils # 6.9 (1.3-7.7) k/uL Lymphocytes # 0.8 L (1.0-4.8) k/uL Monocytes # 0.7 (0-1.0) k/uL Eosinophils # 0.5 (0-0.7) k/uL Basophils # 0.0 (0-0.2) k/uL Hypochromasia Moderate Anisocytosis Slight PT (9.0-12.0) sec INR (<1.2) APTT (22.0-30.0) sec Sodium 130 L (137-145) mmol/L Potassium 5.4 H (3.5-5.1) mmol/L Chloride 98 (98-107) mmol/L Carbon Dioxide 23 (22-30) mmol/L Anion Gap 9 mmol/L BUN 128 H* (9-20) mg/dL Creatinine 1.74 H (0.66-1.25) mg/dL Est GFR (CKD-EPI)AfAm 39 (>60 ml/min/1.73 sqM) Est GFR (CKD-EPI)NonAf 34 (>60 ml/min/1.73 sqM) Glucose 123 H (74-99) mg/dL Calcium 8.9 (8.4-10.2) mg/dL Magnesium 2.4 H (1.6-2.3) mg/dL Total Bilirubin 0.8 (0.2-1.3) mg/dL AST 85 H (17-59) U/L ALT 39 (4-49) U/L Alkaline Phosphatase 84 (38-126) U/L Total Protein 6.6 (6.3-8.2) g/dL Albumin 3.6 (3.5-5.0) g/dL Stool Occult Blood (Negative) Blood Type A Positive Blood Type Recheck A Pos Bld Type Recheck Status No Antibody Screen NEGATIVE Crossmatch See Detail Spec Expiration Date 02/04/2021 - 230702/01/21 02/01/21 Range/Units 12:09 12:09 WBC (3.8-10.6) k/uL RBC (4.30-5.90) m/uL Hgb (13.0-17.5) gm/dL Hct (39.0-53.0) % MCV (80.0-100.0) fL MCH (25.0-35.0) pg MCHC (31.0-37.0) g/dL RDW (11.5-15.5) % Plt Count (150-450) k/uL MPV Neutrophils % % Lymphocytes % % Monocytes % % Eosinophils % % Basophils % % Neutrophils # (1.3-7.7) k/uL Lymphocytes # (1.0-4.8) k/uL Monocytes # (0-1.0) k/uL Eosinophils # (0-0.7) k/uL Basophils # (0-0.2) k/uL Hypochromasia Anisocytosis PT 10.1 (9.0-12.0) sec INR 0.9 (<1.2) APTT 24.5 (22.0-30.0) sec Sodium (137-145) mmol/L Potassium (3.5-5.1) mmol/L Chloride (98-107) mmol/L Carbon Dioxide (22-30) mmol/L Anion Gap mmol/L BUN (9-20) mg/dL Creatinine (0.66-1.25) mg/dL Est GFR (CKD-EPI)AfAm (>60 ml/min/1.73 sqM) Est GFR (CKD-EPI)NonAf (>60 ml/min/1.73 sqM) Glucose (74-99) mg/dL Calcium (8.4-10.2) mg/dL Magnesium (1.6-2.3) mg/dL Total Bilirubin (0.2-1.3) mg/dL AST (17-59) U/L ALT (4-49) U/L Alkaline Phosphatase (38-126) U/L Total Protein (6.3-8.2) g/dL Albumin (3.5-5.0) g/dL Stool Occult Blood Positive (Negative) Blood Type Blood Type Recheck Bld Type Recheck Status Antibody Screen Crossmatch Spec Expiration Date Disposition Clinical Impression: Anemia Disposition: HOME SELF-CARE Condition: Fair Instructions (If sedation given, give patient instructions): Anemia (ED) Additional Instructions: Please return to the Emergency Department if symptoms worsen or any other concerns. Follow up with your primary care for a re-check of your hemoglobin. Is patient prescribed a controlled substance at d/c from ED?: No Referrals: Jose Rollins MD [Primary Care Provider] - 1-2 days Time of Disposition: 16:47
[2021-02-01 13:04] LABS: INR 0.9 (<1.2); Partial Thromboplastin Time 24.5 sec (22.0-30.0); Prothrombin Time 10.1 sec (9.0-12.0)
[2021-02-01 13:05] LABS: Albumin 3.6 g/dL (3.5-5.0); Magnesium 2.4 mg/dL (1.6-2.3); Potassium 5.4 mmol/L (3.5-5.1); Total Protein 6.6 g/dL (6.3-8.2)
[2021-02-01 13:10] LABS: HCT 19.9 % (39.0-53.0); HGB 6.4 gm/dL (13.0-17.5)
[2021-02-01 14:54] VITALS: RESP 20
[2021-02-01 16:52] VITALS: BP 115/52; PULSE 61; TEMP 97
== END 2021-02-01 17:30 | disposition home or self-care (01) ==
LOC: EC 11:11
DX: D64.9 Anemia, unspecified (principal); Z79.82 Long term (current) use of aspirin; Z88.0 Allergy status to penicillin; I50.9 Heart failure, unspecified; K21.9 Gastro-esophageal reflux disease without esophagitis; Z86.73 Personal history of transient ischemic attack (TIA), and cerebral infarction without residual deficits; M19.90 Unspecified osteoarthritis, unspecified site; Z87.891 Personal history of nicotine dependence
CPT/HCPCS: 99284; 36430; 36415; 86900; 86901; 80053; 83735; 85025; 85610; 85730; 86850; 86920; 82272; P9016

== ENCOUNTER 2021-02-03 01:22 | Inpatient (IN) | payer MEDICARE ==
[2021-02-03] MEDS ORDERED: SODIUM CHLORIDE 0.9% 1,000 ML IV STA (02:17)
[2021-02-03] MEDS ORDERED: SODIUM CHLORIDE 0.9% 500 ML 500 ML IV STA (02:17)
[2021-02-03] MEDS ORDERED: MORPHINE SULFATE 4 MG/ML SYRINGE IV STA (02:17)
--- NOTE | 2021-02-03 02:23 | ED ---
Back Pain HPI - General Chief Complaint: Back Pain/Injury Stated Complaint: Back pain Time Seen by Provider: 02/03/21 01:48 Source: patient, EMS, RN notes reviewed, old records reviewed Mode of arrival: EMS Limitations: no limitations - History of Present Illness Initial Comments: This is a 89-year-old male DF for evaluation of severe flank pain left-sided back pain and abdominal pain. Patient presents today for a care facility with multiple recent ER visits. Patient ER visits have been for abnormal lab values but today's presenting for evaluation of pain. No traumatic injury noted. No MD Complaint: back pain, other (Left flank pain and abdominal pain) -: days(s) Similar Symptoms Previously: Yes Place: home Radiation: buttocks, flank Severity: moderate Severity scale (1-10): 5 Quality: stabbing Consistency: constant Improves With: none Worsens With: none Context: unknown Associated Symptoms: denies other symptoms - Related Data Home Medications Medication Instructions Recorded Confirmed Acetaminophen Tab [Tylenol] 500 mg PO Q4H PRN 10/24/20 02/01/21 Albuterol Inhaler [Ventolin Hfa 1 puff INHALATION RT-Q4H PRN 10/24/20 02/01/21 Inhaler] Allopurinol [Zyloprim] 100 mg PO BID 10/24/20 02/01/21 Cholecalciferol [Vitamin D3 (25 25 mcg PO DAILY 10/24/20 02/01/21 Mcg = 1000 Iu)] Cyanocobalamin [Vitamin B-12] 500 mcg PO DAILY 10/24/20 02/01/21 Ferrous Gluconate 324 mg PO DAILY@1130 10/24/20 02/01/21 Fluticasone/Vilanterol [Breo 1 puff INHALATION RT-DAILY 10/24/20 02/01/21 Ellipta 100-25 Mcg Inhaler] Melatonin 6 mg PO HS 10/24/20 02/01/21 Menthol-Zinc Oxide Oint 1 applic TOPICAL DAILY 10/24/20 02/01/21 [Calmoseptine Oint] Metoprolol Succinate [Toprol XL] 12.5 mg PO DAILY 10/24/20 02/01/21 Midodrine HCl [ProAmatine] 10 mg PO AC-TID 10/24/20 02/01/21 Omeprazole 20 mg PO DAILY 10/24/20 02/01/21 Rosuvastatin [Crestor] 10 mg PO HS 10/24/20 02/01/21 Albuterol Nebulized [Ventolin 2.5 mg INHALATION RT-TID 01/26/21 02/01/21 Nebulized] Aspirin EC [Ecotrin Low Dose] 81 mg PO DAILY 01/26/21 02/01/21 Diclofenac Sodium Gel [Voltaren 4 gm TOPICAL QID 01/26/21 02/01/21 Gel] Lactose-Reduced Food [Boost] 237 ml PO DAILY 01/26/21 02/01/21 Liquacel 30 ml PO BID 01/26/21 02/01/21 Loperamide [Imodium] 2 - 4 mg PO QID PRN 01/26/21 02/01/21 Menthol/Zinc Oxide [Calmoseptine 1 applic TOPICAL DAILY 02/01/21 02/01/21 Ointment] Previous Rx's Medication Instructions Recorded Furosemide [Lasix] 40 mg PO BID@0900,1600 #60 tab 01/29/21 Spironolactone [Aldactone] 12.5 mg PO DAILY #30 tablet 01/29/21 Allergies Allergy/AdvReac Type Severity Reaction Status Date / Time Penicillins Allergy Severe Anaphylaxis Verified 02/03/21 01:30 Review of Systems ROS Statement: Those systems with pertinent positive or pertinent negative responses have been documented in the HPI. ROS Other: All systems not noted in ROS Statement are negative. Past Medical History Past Medical History: Cancer, Heart Failure, CVA/TIA, GERD/Reflux, Osteoarthritis (OA), Renal Disease Additional Past Medical History / Comment(s): insomnia, subarachnoid hemorrhage, hemiplegia and hemiparesis, dysphagia, gout, History of Any Multi-Drug Resistant Organisms: None Reported Past Surgical History: Unable to Obtain Past Anesthesia/Blood Transfusion Reactions: No Reported Reaction Past Psychological History: No Psychological Hx Reported Smoking Status: Former smoker Past Alcohol Use History: None Reported Past Drug Use History: None Reported - Past Family History Family Family Medical History: No Reported History General Exam General appearance: alert, in no apparent distress Head exam: Present: atraumatic, normocephalic, normal inspection Eye exam: Present: normal appearance, PERRL, EOMI. Absent: scleral icterus, co njunctival injection, periorbital swelling ENT exam: Present: normal exam, mucous membranes moist Neck exam: Present: normal inspection. Absent: tenderness, meningismus, lymphadenopathy Respiratory exam: Present: normal lung sounds bilaterally. Absent: respiratory distress, wheezes, rales, rhonchi, stridor Cardiovascular Exam: Present: regular rate, normal rhythm, normal heart sounds. Absent: systolic murmur, diastolic murmur, rubs, gallop, clicks GI/Abdominal exam: Present: soft, normal bowel sounds. Absent: distended, tenderness, guarding, rebound, rigid Extremities exam: Present: normal inspection, full ROM, normal capillary refill. Absent: tenderness, pedal edema, joint swelling, calf tenderness Back exam: Present: normal inspection Neurological exam: Present: alert, oriented X3, CN II-XII intact Psychiatric exam: Present: normal affect, normal mood Skin exam: Present: warm, dry, intact, normal color. Absent: rash Course Vital Signs 02/03/21 02/03/21 01:25 05:33 Temperature 98 F Pulse Rate 62 68 Respiratory 18 18 Rate Blood Pressure 136/60 117/45 O2 Sat by Pulse 98 98 Oximetry - Reevaluation(s) Reevaluation #1: 02/03/21 02:39 Medical record is reviewed Reevaluation #2: Patient informed of results and questions answered - Consultations Consultation #1: Spoke with sound who agrees to admit this patient Medical Decision Making - Medical Decision Making 89 male to the ER for evaluation patient Dese for evaluation regards to weakness sided flank pain maybe pyelonephritis on computed tomography scan. Patient placed on antibiotics unable to give urine here in the ER. Patient also be adm itted for trending of troponin at a significantly elevated - Lab Data Result diagrams: 02/03/21 02:56 02/03/21 02:56 Lab Results 02/03/21 02/03/21 02/03/21 Range/Units 02:56 02:56 02:56 WBC 16.6 H (3.8-10.6) k/uL RBC 2.73 L (4.30-5.90) m/uL Hgb 8.4 L D (13.0-17.5) gm/dL Hct 24.9 L (39.0-53.0) % MCV 91.0 (80.0-100.0) fL MCH 30.6 (25.0-35.0) pg MCHC 33.6 (31.0-37.0) g/dL RDW 18.5 H (11.5-15.5) % Plt Count 255 (150-450) k/uL MPV 9.4 Neutrophils % 91 % Lymphocytes % 2 % Monocytes % 5 % Eosinophils % 2 % Basophils % 0 % Neutrophils # 15.1 H (1.3-7.7) k/uL Lymphocytes # 0.4 L (1.0-4.8) k/uL Monocytes # 0.8 (0-1.0) k/uL Eosinophils # 0.3 (0-0.7) k/uL Basophils # 0.1 (0-0.2) k/uL Hypochromasia Slight Poikilocytosis Slight Anisocytosis Slight PT 10.5 (9.0-12.0) sec INR 1.0 (<1.2) APTT 25.1 (22.0-30.0) sec Sodium 135 L (137-145) mmol/L Potassium 4.4 (3.5-5.1) mmol/L Chloride 102 (98-107) mmol/L Carbon Dioxide 22 (22-30) mmol/L Anion Gap 11 mmol/L BUN 106 H* (9-20) mg/dL Creatinine 1.94 H (0.66-1.25) mg/dL Est GFR (CKD-EPI)AfAm 35 (>60 ml/min/1.73 sqM) Est GFR (CKD-EPI)NonAf 30 (>60 ml/min/1.73 sqM) Glucose 123 H (74-99) mg/dL Calcium 9.3 (8.4-10.2) mg/dL Phosphorus 4.2 (2.5-4.5) mg/dL Magnesium 2.5 H (1.6-2.3) mg/dL Total Bilirubin 0.8 (0.2-1.3) mg/dL AST 57 (17-59) U/L ALT 38 (4-49) U/L Alkaline Phosphatase 117 (38-126) U/L Troponin I (0.000-0.034) ng/mL NT-Pro-B Natriuret Pep pg/mL Total Protein 6.6 (6.3-8.2) g/dL Albumin 3.8 (3.5-5.0) g/dL 02/03/21 02/03/21 Range/Units 02:56 02:56 WBC (3.8-10.6) k/uL RBC (4.30-5.90) m/uL Hgb (13.0-17.5) gm/dL Hct (39.0-53.0) % MCV (80.0-100.0) fL MCH (25.0-35.0) pg MCHC (31.0-37.0) g/dL RDW (11.5-15.5) % Plt Count (150-450) k/uL MPV Neutrophils % % Lymphocytes % % Monocytes % % Eosinophils % % Basophils % % Neutrophils # (1.3-7.7) k/uL Lymphocytes # (1.0-4.8) k/uL Monocytes # (0-1.0) k/uL Eosinophils # (0-0.7) k/uL Basophils # (0-0.2) k/uL Hypochromasia Poikilocytosis Anisocytosis PT (9.0-12.0) sec INR (<1.2) APTT (22.0-30.0) sec Sodium (137-145) mmol/L Potassium (3.5-5.1) mmol/L Chloride (98-107) mmol/L Carbon Dioxide (22-30) mmol/L Anion Gap mmol/L BUN (9-20) mg/dL Creatinine (0.66-1.25) mg/dL Est GFR (CKD-EPI)AfAm (>60 ml/min/1.73 sqM) Est GFR (CKD-EPI)NonAf (>60 ml/min/1.73 sqM) Glucose (74-99) mg/dL Calcium (8.4-10.2) mg/dL Phosphorus (2.5-4.5) mg/dL Magnesium (1.6-2.3) mg/dL Total Bilirubin (0.2-1.3) mg/dL AST (17-59) U/L ALT (4-49) U/L Alkaline Phosphatase (38-126) U/L Troponin I 0.489 H* (0.000-0.034) ng/mL NT-Pro-B Natriuret Pep 51462 pg/mL Total Protein (6.3-8.2) g/dL Albumin (3.5-5.0) g/dL - Radiology Data Radiology results: report reviewed (DT head and pelvis is positive for pyelon ephritis), image reviewed Disposition Clinical Impression: Anemia, Demand ischemia, Elevated troponin, Uremia, Pyelonephritis Disposition: ADMITTED IP TO THIS HOSP Condition: Fair Is patient prescribed a controlled substance at d/c from ED?: No
--- NOTE | 2021-02-03 03:06 | CT ---
EXAMINATION TYPE: CT abdomen pelvis wo con DATE OF EXAM: 02/03/2021 COMPARISON: None HISTORY: pain CT DLP: 752.5 mGycm Automated exposure control for dose reduction was used. Images obtained from the diaphragm to the floor the pelvis with no contrast. There is some mild atelectasis at the posterior lung bases. Heart is enlarged. There is hiatal hernia . There is no pleural effusion. Liver is intact. There is single large calcified gallstone. The bile ducts are not dilated. Spleen is intact. There is no evidence of pancreatic mass. There is no adrenal mass. Left kidney shows dilated renal pelvis. I see no definite ureteral calculus . There is no retroperitoneal adenopathy. There is no renal atrophy. Abdominal aorta is atheromatous. Exam limited slightly by motion. There is no free fluid in the pelvis. There is no inguinal hernia. Bladder distends smoothly. There is no mesenteric edema. There is no ascites or free air. There is no sign of a bowel obstructio n. The lumbar vertebra have normal alignment. There is no compression fracture. Posterior elements are i ntact. There is degenerative disc space narrowing in the lumbar spine. The bony pelvis is intact. The hip joints are intact. IMPRESSION: Left-sided hydronephrosis but no renal atrophy and no calculus seen. Cholelithiasis. Mild subsegmental atelectasis at the lung bases. Hiatal hernia.
[2021-02-03 03:30] LABS: Anisocytosis Slight; Basophils # (A) 0.1 k/uL (0-0.2); Basophils % (A) 0 %; Eosinophils # (A) 0.3 k/uL (0-0.7); Eosinophils % (A) 2 %; HCT 24.9 % (39.0-53.0); Hypochromasia Slight; Lymphocytes # (A) 0.4 k/uL (1.0-4.8); Lymphocytes % (A) 2 %; MCH 30.6 pg (25.0-35.0); MCHC 33.6 g/dL (31.0-37.0); Mean Platelet Volume 9.4; Monocytes # (A) 0.8 k/uL (0-1.0); Monocytes % (A) 5 %; Neutrophils # (A) 15.1 k/uL (1.3-7.7); Neutrophils % (A) 91 %; Platelet Count 255 k/uL (150-450); Poikilocytosis Slight; RBC 2.73 m/uL (4.30-5.90); RDW 18.5 % (11.5-15.5); WBC 16.6 k/uL (3.8-10.6)
[2021-02-03 03:31] LABS: HGB 8.4 gm/dL (13.0-17.5)
[2021-02-03 03:45] LABS: Albumin 3.8 g/dL (3.5-5.0); Calcium 9.3 mg/dL (8.4-10.2); Magnesium 2.5 mg/dL (1.6-2.3); Phosphorus 4.2 mg/dL (2.5-4.5); Potassium 4.4 mmol/L (3.5-5.1); Total Bilirubin 0.8 mg/dL (0.2-1.3); Total Protein 6.6 g/dL (6.3-8.2)
[2021-02-03 03:55] LABS: Partial Thromboplastin Time 25.1 sec (22.0-30.0); Prothrombin Time 10.5 sec (9.0-12.0)
[2021-02-03] MEDS ORDERED: ONDANSETRON 4 MG/2 ML VIAL IVP PRN (04:11)
[2021-02-03] MEDS ORDERED: MORPHINE SULFATE 4 MG/ML SYRINGE IV PRN (04:11)
[2021-02-03] MEDS ORDERED: NALOXONE 0.4 MG/ML 1 ML VIAL IV PRN (04:11)
[2021-02-03] MEDS ORDERED: SODIUM CHLORIDE 0.9% 1,000 ML IV SCH (04:15)
[2021-02-03] MEDS ORDERED: MORPHINE SULFATE 2 MG/ML SYRINGE IV PRN (10:45)
[2021-02-03] MEDS ORDERED: ALBUTEROL HFA INHALER INHALATION PRN (10:46)
[2021-02-03] MEDS ORDERED: ACETAMINOPHEN TAB 500 MG TAB PO PRN (10:46)
--- NOTE | 2021-02-03 11:03 | P.HPIM ---
History of Present Illness H&P Date: 02/03/21 Chief Complaint: Left flank pain This is a 89-year-old male with very complex past medical history noted below that presented to the emergency room with left flank pain. Patient was seen and evaluated by me in the ER. He was lethargic but easily arousable. Patient is oriented to himself and to the place. He is a very poor historian. He told me that he was having back pain mostly in his left flank. He was diagnosed with acute pyelonephritis by ER physician even though there is no urinalysis available for me to review. Computed tomography scan of the abdomen and pelvis showed evidence of left-sided hydronephrosis but no renal calculus noted. Otherwise no acute findings to explain his symptoms. Patient otherwise denies any chest pain or shortness of breath. I noted that his BNP is significantly elevated and he also has an elevation in his troponin level. Twelve-lead ECG reviewed by me showed no acute ischemic changes. Patient will be placed on observation for further management Review of Systems Review of system: 14 points review of systems were obtained and were negative except to what were mentioned in the HPI. Past Medical History Past Medical History: Cancer, Heart Failure, CVA/TIA, GERD/Reflux, Osteoarthritis (OA), Renal Disease Additional Past Medical History / Comment(s): insomnia, subarachnoid hemorrhage, hemiplegia and hemiparesis, dysphagia, gout, History of Any Multi-Drug Resistant Organisms: None Reported Past Surgical History: Unable to Obtain Past Anesthesia/Blood Transfusion Reactions: No Reported Reaction Past Psychological History: No Psychological Hx Reported Smoking Status: Former smoker Past Alcohol Use History: None Reported Past Drug Use History: None Reported - Past Family History Family Family Medical History: No Reported History Medications and Allergies Home Medications Medication Instructions Recorded Confirmed Type Acetaminophen Tab [Tylenol] 500 mg PO Q4H PRN 10/24/20 02/03/21 History Albuterol Inhaler [Ventolin Hfa 1 puff INHALATION RT-Q4H PRN 10/24/20 02/03/21 History Inhaler] Allopurinol [Zyloprim] 100 mg PO BID 10/24/20 02/03/21 History Cholecalciferol [Vitamin D3 (25 25 mcg PO DAILY 10/24/20 02/03/21 History Mcg = 1000 Iu)] Cyanocobalamin [Vitamin B-12] 500 mcg PO DAILY 10/24/20 02/03/21 History Ferrous Gluconate 324 mg PO DAILY@1130 10/24/20 02/03/21 History Fluticasone/Vilanterol [Breo 1 puff INHALATION RT-DAILY 10/24/20 02/03/21 History Ellipta 100-25 Mcg Inhaler] Melatonin 6 mg PO HS 10/24/20 02/03/21 History Menthol-Zinc Oxide Oint 1 applic TOPICAL DAILY 10/24/20 02/03/21 History [Calmoseptine Oint] Metoprolol Succinate [Toprol XL] 12.5 mg PO DAILY 10/24/20 02/03/21 History Midodrine HCl [ProAmatine] 10 mg PO AC-TID 10/24/20 02/03/21 History Omeprazole 20 mg PO DAILY 10/24/20 02/03/21 History Rosuvastatin [Crestor] 10 mg PO HS 10/24/20 02/03/21 History Albuterol Nebulized [Ventolin 2.5 mg INHALATION RT-TID 01/26/21 02/03/21 History Nebulized] Aspirin EC [Ecotrin Low Dose] 81 mg PO DAILY 01/26/21 02/03/21 History Diclofenac Sodium Gel [Voltaren 4 gm TOPICAL QID 01/26/21 02/03/21 History Gel] Liquacel 30 ml PO BID 01/26/21 02/03/21 History Loperamide [Imodium] 2 - 4 mg PO QID PRN 01/26/21 02/03/21 History Furosemide [Lasix] 40 mg PO BID@0900,1600 #60 tab 01/29/21 02/03/21 Rx Spironolactone [Aldactone] 12.5 mg PO DAILY #30 tablet 01/29/21 02/03/21 Rx Allergies Allergy/AdvReac Type Severity Reaction Status Date / Time Penicillins Allergy Severe Anaphylaxis Verified 02/03/21 07:48 Physical Exam Vitals: Vital Signs Temp Pulse Resp BP Pulse Ox 02/03/21 10:15 97.8 F 60 20 127/57 99 02/03/21 09:00 67 18 159/58 98 02/03/21 05:33 68 18 117/45 98 02/03/21 01:25 98 F 62 18 136/60 98 Intake and Output 02/02/21 02/03/21 02/03/21 22:59 06:59 14:59 Other: Weight 68.039 kg General: The patient is awake and alert, in no distress Eye: there is normal conjunctiva bilaterally. Neck: The neck is supple, there is no JVD. Cardiovascular: Normal S1-S2, no S3-S4, no murmurs. Respiratory: Lungs clear to auscultation bilaterally Gastrointestinal: Abdomen is soft, nontender Musculoskeletal: There is no pedal edema. Neurological:. Speech is normal. Skin: Skin is warm and dry Results CBC & Chem 7: 02/03/21 02:56 02/03/21 02:56 Labs: Abnormal Lab Results - Last 24 Hours (Table) 02/03/21 02/03/21 02/03/21 Range/Units 02:56 02:56 02:56 WBC 16.6 H (3.8-10.6) k/uL RBC 2.73 L (4.30-5.90) m/uL Hgb 8.4 L D (13.0-17.5) gm/dL Hct 24.9 L (39.0-53.0) % RDW 18.5 H (11.5-15.5) % Neutrophils # 15.1 H (1.3-7.7) k/uL Lymphocytes # 0.4 L (1.0-4.8) k/uL Sodium 135 L (137-145) mmol/L BUN 106 H* (9-20) mg/dL Creatinine 1.94 H (0.66-1.25) mg/dL Glucose 123 H (74-99) mg/dL Magnesium 2.5 H (1.6-2.3) mg/dL Troponin I 0.489 H* (0.000-0.034) ng/mL 02/03/21 Range/Units 06:20 WBC (3.8-10.6) k/uL RBC (4.30-5.90) m/uL Hgb (13.0-17.5) gm/dL Hct (39.0-53.0) % RDW (11.5-15.5) % Neutrophils # (1.3-7.7) k/uL Lymphocytes # (1.0-4.8) k/uL Sodium (137-145) mmol/L BUN (9-20) mg/dL Creatinine (0.66-1.25) mg/dL Glucose (74-99) mg/dL Magnesium (1.6-2.3) mg/dL Troponin I 0.434 H* (0.000-0.034) ng/mL Assessment and Plan Assessment: This is a 89-year-old male with complex past medical history noted below who presented to the emergency room with left flank pain. Patient was evaluated in the ER and admitted to the hospital for further management of his medical p roblems noted below. 1. Suspected acute pyelonephritis with left hydronephrosis noted on computed tomography scan. Awaiting urinalysis. Continue antibiotic with IV ceftriaxone. Urology consulted for further evaluation. 2. Acute on chronic systolic heart failure exacerbation. Patient appeared euvolemic clinically. I would obtain chest x-ray for further evaluation. Continue home dose of Lasix. EF of 40% on echocardiogram from July. 3. Troponin elevation, most likely thrombotic troponin leak secondary to chf and ckd. I would consult cardiology for further evaluation. Obtain repeat echocardiogram as well 4. Chronic atrial fibrillation not on anticoagulation secondary to history of bleeding requiring blood transfusion 5. Chronic medical problems: Moderate to severe aortic stenosis, chronic anemia, underlying COPD with no evidence of exacerbation, chronic kidney disease stage IIIB 6. CODE STATUS, patient is DO NOT RESUSCITATE/DO NOT INTUBATE
--- NOTE | 2021-02-03 11:03 | P.PN ---
Progress Note - Text Advanced Care Planning: Diagnoses: [Systolic heart failure exacerbation] Discussion: Person(s) present and participating in discussion: Patient himself[] Summary:[ Today, I discussed goals of care and CODE STATUS with patient. We discussed the meaning of cardiac resuscitation including chest compression and or electric shock if needed. We also discussed intubation and mechanical ventilation. Patient told me that he would like to be DO NOT RESUSCITATE/DO NOT INTUBATE.] A total of [16] minutes of face to face time was spent discussing advanced care planning.
--- NOTE | 2021-02-03 11:24 | XR ---
EXAMINATION TYPE: XR chest 2V DATE OF EXAM: 02/03/2021 COMPARISON: Chest x-ray 01/28/2021 HISTORY: Shortness of breath, question congestive heart failure TECHNIQUE: Frontal and lateral views of the chest are obtained. FINDINGS: Prominence of pulmonary artery persists. Lung volumes are low and the patient is rotated. Heart remains enlarged. No evident pneumothorax or pleural effusion. Interstitium appears prominently . There are overlying artifacts. Patchy basilar density persists. IMPRESSION: Cardiomegaly, correlate for pulmonary artery hypertension. Expiratory rotated exam. Prob able basilar atelectasis. Difficult to exclude interstitial edema.
[2021-02-03 11:27] LABS: Appearance,Urine Turbid (Clear); Bacteria,Urine Moderate /hpf; Bilirubin,Urine Negative (Negative); Blood,Urine Moderate (Negative); Color,Urine Yellow; Glucose,Urine (UA) Negative (Negative); Ketones,Urine Negative (Negative); Leukocyte Esterase,Urine Large (Negative); Nitrite,Urine Negative (Negative); PH, Urine 6.5 (5.0-8.0); Protein,Urine 2+ (Negative); RBC,Urine 77 /hpf (0-5); Urobilinogen,Urine <2.0 mg/dL (<2.0); WBC,Urine >182 /hpf (0-5)
[2021-02-03 11:29] LABS: Specific Gravity,Urine 1.014 (1.001-1.035)
[2021-02-03] MEDS: MIDODRINE 5 MG TAB PO SCH ×2 (12:57→18:19)
[2021-02-03] MEDS: FERROUS SULFATE 325 MG TAB PO SCH (12:59)
[2021-02-03] MEDS: ALBUTEROL NEBULIZED 2.5 MG/3 ML INHALATION SCH ×2 (13:56→20:17)
[2021-02-03] MEDS: FUROSEMIDE 40 MG TAB PO SCH (18:19)
[2021-02-03 19:32] LABS: Amorphous Sediment,Urine Rare /hpf; Appearance,Urine Cloudy (Clear); Bilirubin,Urine Negative (Negative); Blood,Urine Moderate (Negative); Color,Urine Yellow; Glucose,Urine (UA) Negative (Negative); Ketones,Urine Negative (Negative); Leukocyte Esterase,Urine Large (Negative); Nitrite,Urine Negative (Negative); PH, Urine 5.5 (5.0-8.0); Protein,Urine 1+ (Negative); RBC,Urine 5 /hpf (0-5); Specific Gravity,Urine 1.014 (1.001-1.035); Urobilinogen,Urine <2.0 mg/dL (<2.0); WBC,Urine >182 /hpf (0-5)
[2021-02-03] MEDS: ATORVASTATIN 20 MG TAB PO SCH (21:18)
[2021-02-03] MEDS: allopurinoL 100 MG TAB PO SCH (21:18)
[2021-02-03] MEDS: MELATONIN 3 MG TABLET PO SCH (21:18)
[2021-02-04 02:24] VITALS: RESP 18
[2021-02-04] MEDS: MIDODRINE 5 MG TAB PO SCH ×3 (06:03→16:39)
--- NOTE | 2021-02-04 07:23 | P.GSCN ---
History of Present Illness Consult date: 02/04/21 History of present illness: Eating 10-year-old gentleman with recent evaluation for anemia. He came in the hospital after an episode urine retention, catheterand subsequent urinary tract infection. He had an elevated white count of 16,000. He had some left flank pain. A computed tomography scan showed some possible hydronephrosis. His urine was infected was postvoid residuals 230 mL. The patient had an ultrasound a week ago that showed some left [place] as well as an ultrasound in 2014 that showed probably the same thing. As much better this morning. He does admit to some difficulty urination. Review of Systems All systems: negative Past Medical History Past Medical History: Cancer, Heart Failure, CVA/TIA, GERD/Reflux, Osteoarthritis (OA), Renal Disease Additional Past Medical History / Comment(s): insomnia, subarachnoid hemorrhage, hemiplegia and hemiparesis, dysphagia, gout, History of Any Multi-Drug Resistant Organisms: None Reported Past Surgical History: Unable to Obtain Past Anesthesia/Blood Transfusion Reactions: No Reported Reaction Past Psychological History: No Psychological Hx Reported Smoking Status: Former smoker Past Alcohol Use History: None Reported Past Drug Use History: None Reported - Past Family History Family Family Medical History: No Reported History Medications and Allergies Home Medications Medication Instructions Recorded Confirmed Type Acetaminophen Tab [Tylenol] 500 mg PO Q4H PRN 10/24/20 02/03/21 History Albuterol Inhaler [Ventolin Hfa 1 puff INHALATION RT-Q4H PRN 10/24/20 02/03/21 History Inhaler] Allopurinol [Zyloprim] 100 mg PO BID 10/24/20 02/03/21 History Cholecalciferol [Vitamin D3 (25 25 mcg PO DAILY 10/24/20 02/03/21 History Mcg = 1000 Iu)] Cyanocobalamin [Vitamin B-12] 500 mcg PO DAILY 10/24/20 02/03/21 History Ferrous Gluconate 324 mg PO DAILY@1130 10/24/20 02/03/21 History Fluticasone/Vilanterol [Breo 1 puff INHALATION RT-DAILY 10/24/20 02/03/21 History Ellipta 100-25 Mcg Inhaler] Melatonin 6 mg PO HS 10/24/20 02/03/21 History Menthol-Zinc Oxide Oint 1 applic TOPICAL DAILY 10/24/20 02/03/21 History [Calmoseptine Oint] Metoprolol Succinate [Toprol XL] 12.5 mg PO DAILY 10/24/20 02/03/21 History Midodrine HCl [ProAmatine] 10 mg PO AC-TID 10/24/20 02/03/21 History Omeprazole 20 mg PO DAILY 10/24/20 02/03/21 History Rosuvastatin [Crestor] 10 mg PO HS 10/24/20 02/03/21 History Albuterol Nebulized [Ventolin 2.5 mg INHALATION RT-TID 01/26/21 02/03/21 History Nebulized] Aspirin EC [Ecotrin Low Dose] 81 mg PO DAILY 01/26/21 02/03/21 History Diclofenac Sodium Gel [Voltaren 4 gm TOPICAL QID 01/26/21 02/03/21 History Gel] Liquacel 30 ml PO BID 01/26/21 02/03/21 History Loperamide [Imodium] 2 - 4 mg PO QID PRN 01/26/21 02/03/21 History Furosemide [Lasix] 40 mg PO BID@0900,1600 #60 tab 01/29/21 02/03/21 Rx Spironolactone [Aldactone] 12.5 mg PO DAILY #30 tablet 01/29/21 02/03/21 Rx Allergies Allergy/AdvReac Type Severity Reaction Status Date / Time Penicillins Allergy Severe Anaphylaxis Verified 02/03/21 07:48 Surgical - Exam Vital Signs Temp Pulse Resp BP Pulse Ox 98 F 62 18 136/60 98 02/03/21 01:25 02/03/21 01:25 02/03/21 01:25 02/03/21 01:25 02/03/21 01:25 - General Appears frail and his state of 89 years well developed, no distress - ENT no hearing loss - Neck trachea midline - Respiratory normal expansion, normal respiratory effort - Cardiovascular Rhythm: regular - Abdomen Abdomen: soft, non tender - Genitourinary normal penis with no external lesions, testicles present - Musculoskeletal normal posture - Psychiatric oriented to time, oriented to person, oriented to place, speech is normal, memory intact Results - Labs 02/03/21 02:56 02/03/21 02:56 Abnormal Lab Results - Last 24 Hours (Table) 02/03/21 02/03/21 02/03/21 Range/Units 06:20 09:42 10:27 Troponin I 0.434 H* 0.408 H* (0.000-0.034) ng/mL Urine Protein 2+ H (Negative) Urine Blood Moderate H (Negative) Ur Leukocyte Esterase Large H (Negative) Urine RBC 77 H (0-5) /hpf Urine WBC >182 H (0-5) /hpf Urine WBC Clumps Many H (None) /hpf Amorphous Sediment (None) /hpf Urine Bacteria Moderate H (None) /hpf 02/03/21 Range/Units 18:00 Troponin I (0.000-0.034) ng/mL Urine Protein 1+ H (Negative) Urine Blood Moderate H (Negative) Ur Leukocyte Esterase Large H (Negative) Urine RBC (0-5) /hpf Urine WBC >182 H (0-5) /hpf Urine WBC Clumps Many H (None) /hpf Amorphous Sediment Rare H (None) /hpf Urine Bacteria (None) /hpf Microbiology - Last 24 Hours (Table) 02/03/21 18:00 Urine Culture - Preliminary Urine,Voided - Imaging CT scan - abdomen: report reviewed, image reviewed CT scan - pelvis: report reviewed, image reviewed Assessment and Plan Assessment: Impression: A urinary tract infection with sepsis. Left chronic hydronephrosis versus peripelvic cyst. Iron deficiency anemia. Multiple medical issues. Recommendations: He should continue with antibiotics as he is feeling better. Cultures are pending. I will add Flomax to see if we can help him empty his bladder better.
[2021-02-04] MEDS: ALBUTEROL NEBULIZED 2.5 MG/3 ML INHALATION SCH ×3 (07:58→19:38)
[2021-02-04] MEDS: SYMBICORT 80-4.5 MCG INHALER INHALATION SCH ×3 (07:59→19:51)
[2021-02-04 08:34] LABS: Anisocytosis Slight; Basophils % (A) 0 %; Eosinophils # (A) 0.9 k/uL (0-0.7); Eosinophils % (A) 6 %; HCT 26.9 % (39.0-53.0); HGB 8.4 gm/dL (13.0-17.5); Hypochromasia Slight; Lymphocytes # (A) 0.6 k/uL (1.0-4.8); Lymphocytes % (A) 4 %; MCH 29.3 pg (25.0-35.0); MCHC 31.3 g/dL (31.0-37.0); MCV 93.6 fL (80.0-100.0); Mean Platelet Volume 9.9; Monocytes # (A) 0.7 k/uL (0-1.0); Monocytes % (A) 5 %; Neutrophils # (A) 11.2 k/uL (1.3-7.7); Neutrophils % (A) 82 %; Platelet Count 250 k/uL (150-450); Poikilocytosis Slight; RBC 2.88 m/uL (4.30-5.90); RDW 18.3 % (11.5-15.5); WBC 13.7 k/uL (3.8-10.6)
[2021-02-04] MEDS: ASPIRIN 81 MG PO SCH (09:00)
[2021-02-04] MEDS: FUROSEMIDE 40 MG TAB PO SCH ×2 (09:00→16:39)
[2021-02-04] MEDS: CHOLECALCIFEROL 25 MCG (1000 IU) TABLET PO SCH (09:00)
[2021-02-04] MEDS: METOPROLOL SUCCINATE (ER) 25 MG TAB.ER.24H PO SCH (09:00)
[2021-02-04] MEDS: PANTOPRAZOLE 40 MG TABLET PO SCH (09:00)
[2021-02-04] MEDS: allopurinoL 100 MG TAB PO SCH ×2 (09:00→21:14)
[2021-02-04] MEDS: CYANOCOBALAMIN 500 MCG TAB PO SCH (09:00)
[2021-02-04 09:01] LABS: Albumin 3.2 g/dL (3.5-5.0); Calcium 9.2 mg/dL (8.4-10.2); Potassium 3.9 mmol/L (3.5-5.1); Total Bilirubin 0.5 mg/dL (0.2-1.3)
[2021-02-04] MEDS: SPIRONOLACTONE 25 MG TAB PO SCH (09:01)
--- NOTE | 2021-02-04 11:58 | ECHOF ---
Referral Reason:CHF? MEASUREMENTS -------- HEIGHT: 165.1 cm WEIGHT: 66.7 kg BP: IVSd: 1.4 cm (0.6 - 1.1) LVIDd: 4.8 cm (3.9 - 5.3) LVPWd: 1.1 cm (0.6 - 1.1) IVSs: 1.6 cm LVIDs: 3.9 cm LVPWs: 1.6 cm LAESV Index (A-L): 76.69 ml/m Ao Diam: 4.0 cm (2.0 - 3.7) MV E Isacc: 1.19 m/s MV DecT: 167 ms MV A Isacc: 0.68 m/s MV E/A Ratio: 1.76 AV maxP.84 mmHg AV meanP.67 mmHg RAP: 5.00 mmHg RVSP: 66.90 mmHg FINDINGS -------- Undetermined rhythm. This was a technically good study. The left ventricular size is normal. There is moderate concentric left ventricular hypertrophy. O verall left ventricular systolic function is low-normal with, an EF between 50 - 55 %. The right ventricle is normal in size. LA is severely dilated >40 ml/m2 The right atrial size is normal. There is mild aortic regurgitation. There is severe aortic stenosis present. Peak/mean gradient a cross the Aortic Valve is 92.84mmHg / 59.67mmHg. Mild mitral annular calcification present. Bnjj-ka-ebflrima mitral regurgitation is present. Mild tricuspid regurgitation present. There is moderate pulmonary hypertension. The right ventric ular systolic pressure, as measured by Doppler, is 66.90mmHg. Trace/mild (physiologic) pulmonic regurgitation. There is no pericardial effusion. CONCLUSIONS -------- 1. The left ventricular size is normal. 2. There is moderate concentric left ventricular hypertrophy. 3. Overall left ventricular systolic function is low-normal with, an EF between 50 - 55 %. 4. The right ventricle is normal in size. 5. LA is severely dilated >40 ml/m2 6. The right atrial size is normal. 7. There is mild aortic regurgitation. 8. There is severe aortic stenosis present. 9. Peak/mean gradient across the Aortic Valve is 92.84mmHg / 59.67mmHg. 10. Mild mitral annular calcification present. 11. Aqsm-nj-dudsfvnw mitral regurgitation is present. 12. Mild tricuspid regurgitation present. 13. There is moderate pulmonary hypertension. 14. The right ventricular systolic pressure, as measured by Doppler, is 66.90mmHg. 15. Trace/mild (physiologic) pulmonic regurgitation. 16. There is no pericardial effusion. FREIGHT RECEIVER: Ale Montemayor RDCS
[2021-02-04] MEDS: FERROUS SULFATE 325 MG TAB PO SCH (11:59)
--- NOTE | 2021-02-04 12:18 | P.CRDCN ---
History of Present Illness Consult date: 02/04/21 History of present illness: HISTORY OF PRESENT ILLNESS: This is a 89-year-old male with a past medical history significant for chronic persistent atrial fibrillation, congestive heart failure, aortic stenosis, CVA, and chronic kidney disease. Patient follows in the office with Dr. Fiore. We have been asked to see the patient in consultation for abnormal troponins. Patient examined at the bedside. Patient presented to the hospital secondary to flank pain. Patient was found to have a UTI and possible pyelonephritis. His also diagnosed with sepsis. The patient denies any chest pain or pressure. He denies any shortness of breath. EKG reveals atrial fibrillation with controlled ventricular rate Chest xray cardiomegaly, correlate for pulmonary artery hypertension. Probable basilar atelectasis. Difficult to exclude interstitial edema. Laboratory data: WBC 13.7. Hemoglobin 8.4. Platelet count 250. Sodium 137. Potassium 3.9. BUN 70. Creatinine 1.50. Troponin 0.489. 0.434. 0.408. Current home cardiac medications include Aldactone 12.5 mg daily, Crestor 10 mg daily, metoprolol succinate 12.5 mg daily, Lasix 40 mg twice a day, aspirin 81 mg daily Most recent echocardiogram obtained in July 2020 revealed EF 37%, Severe , moderate to severe tricuspid regurgitation, vgww-[id number]-[id number] mitral regurgitation REVIEW OF SYSTEMS: At the time of my exam: CONSTITUTIONAL: Denies fever or chills. HEENT: Denies blurred vision, vision changes, or eye pain. Denies hemoptysis CARDIOVASCULAR: Denies chest pain. Denies orthopnea. Denies PND. Denies palpitations RESPIRATORY: Denies shortness of breath. GASTROINTESTINAL: Denies abdominal pain. Denies nausea or vomiting. HEMATOLOGIC: Denies bleeding disorders. GENITOURINARY: Denies any blood in urine. SKIN: Denies pruitis. Denies rash. PHYSICAL EXAM: VITAL SIGNS: Reviewed. GENERAL: Well-developed in no acute distress. HEENT: Head is normocephalic. Pupils are equal, round. Sclerae anicteric. Mucous membranes of the mouth are moist. Neck supple. No JVD or thyromegaly LUNGS: Respirations even and unlabored. Lungs diminished to auscultation bilaterally. HEART: Irregular rate and rhythm. S1 and S2 heard. + systolic murmur ABDOMEN: Soft. Nondistended. Nontender. EXTREMITIES: Normal range of motion. No clubbing or cyanosis. Peripheral pulses intact. No lower extremity edema NEUROLOGIC: Awake and alert. Oriented x 3. ASSESSMENT: Urinary tract infection Sepsis, possible pyelonephritis Abnormal troponins, secondary to above and CKD, no evidence of acute coronary syndrome Chronic persistent atrial fibrillation, not on anticoagulation due to history of GI bleeding Chronic systolic congestive heart failure, ejection fraction 37% Chronic kidney disease Valvular heart disease including severe aortic stenosis History of CVA PLAN: An acute coronary event has been ruled out Obtain 2D echo to assess cardiac structure and function Resume home cardiac medications Patient is currently stable from a cardiac standpoint Further recommendations pending patient course Nurse practitioner note has been reviewed by physician. Signing provider agrees with the documented findings, assessment, and plan of care. Past Medical History Past Medical History: Cancer, Heart Failure, CVA/TIA, GERD/Reflux, Osteoarth ritis (OA), Renal Disease Additional Past Medical History / Comment(s): insomnia, subarachnoid hemorrhage, hemiplegia and hemiparesis, dysphagia, gout, History of Any Multi-Drug Resistant Organisms: None Reported Past Surgical History: Unable to Obtain Past Anesthesia/Blood Transfusion Reactions: No Reported Reaction Past Psychological History: No Psychological Hx Reported Smoking Status: Former smoker Past Alcohol Use History: None Reported Past Drug Use History: None Reported - Past Family History Family Family Medical History: No Reported History Medications and Allergies Home Medications Medication Instructions Recorded Confirmed Type Acetaminophen Tab [Tylenol] 500 mg PO Q4H PRN 10/24/20 02/03/21 History Albuterol Inhaler [Ventolin Hfa 1 puff INHALATION RT-Q4H PRN 10/24/20 02/03/21 History Inhaler] Allopurinol [Zyloprim] 100 mg PO BID 10/24/20 02/03/21 History Cholecalciferol [Vitamin D3 (25 25 mcg PO DAILY 10/24/20 02/03/21 History Mcg = 1000 Iu)] Cyanocobalamin [Vitamin B-12] 500 mcg PO DAILY 10/24/20 02/03/21 History Ferrous Gluconate 324 mg PO DAILY@1130 10/24/20 02/03/21 History Fluticasone/Vilanterol [Breo 1 puff INHALATION RT-DAILY 10/24/20 02/03/21 History Ellipta 100-25 Mcg Inhaler] Melatonin 6 mg PO HS 10/24/20 02/03/21 History Menthol-Zinc Oxide Oint 1 applic TOPICAL DAILY 10/24/20 02/03/21 History [Calmoseptine Oint] Metoprolol Succinate [Toprol XL] 12.5 mg PO DAILY 10/24/20 02/03/21 History Midodrine HCl [ProAmatine] 10 mg PO AC-TID 10/24/20 02/03/21 History Omeprazole 20 mg PO DAILY 10/24/20 02/03/21 History Rosuvastatin [Crestor] 10 mg PO HS 10/24/20 02/03/21 History Albuterol Nebulized [Ventolin 2.5 mg INHALATION RT-TID 01/26/21 02/03/21 History Nebulized] Aspirin EC [Ecotrin Low Dose] 81 mg PO DAILY 01/26/21 02/03/21 History Diclofenac Sodium Gel [Voltaren 4 gm TOPICAL QID 01/26/21 02/03/21 History Gel] Liquacel 30 ml PO BID 01/26/21 02/03/21 History Loperamide [Imodium] 2 - 4 mg PO QID PRN 01/26/21 02/03/21 History Furosemide [Lasix] 40 mg PO BID@0900,1600 #60 tab 01/29/21 02/03/21 Rx Spironolactone [Aldactone] 12.5 mg PO DAILY #30 tablet 01/29/21 02/03/21 Rx Allergies Allergy/AdvReac Type Severity Reaction Status Date / Time Penicillins Allergy Severe Anaphylaxis Verified 02/03/21 07:48 Physical Exam Vitals: Vital Signs Temp Pulse Pulse Resp BP BP Pulse Ox 02/04/21 08:59 144/55 02/04/21 08:52 98.3 F 62 18 122/48 96 02/04/21 08:11 62 02/04/21 07:59 62 100 02/04/21 04:00 97.9 F 63 18 142/65 97 02/04/21 02:00 18 02/03/21 23:34 98.4 F 61 15 95/46 92 L 02/03/21 20:27 58 L 02/03/21 20:17 58 L 02/03/21 20:00 98.8 F 63 17 158/62 92 L 02/03/21 19:06 66 24 143/63 90 L 02/03/21 18:22 65 18 148/49 99 02/03/21 15:57 61 18 125/43 100 02/03/21 14:07 56 L 02/03/21 13:59 59 L 99 02/03/21 12:59 61 18 135/48 99 Intake and Output 02/03/21 02/04/21 02/04/21 22:59 06:59 14:59 Intake Total 50 240 Output Total 1300 1300 Balance -1250 -1300 240 Intake: Intake, IV Titration 50 Amount cefTRIAXone 1 gm In 50 Sodium Chloride 0.9% 50 ml @ 100 mls/hr IVPB Q12H [facility] Rx#:[id number] Oral 240 Output: Urine 1300 1300 Other: Voiding Method Urinal Urinal # Voids 1 1 Weight 68.039 kg 67 kg Results 02/04/21 07:52 02/04/21 07:52 Cardiac Enzymes 02/03/21 02/04/21 Range/Units 09:42 07:52 AST 39 (17-59) U/L Troponin I 0.408 H* (0.000-0.034) ng/mL CBC 02/04/21 Range/Units 07:52 WBC 13.7 H (3.8-10.6) k/uL RBC 2.88 L (4.30-5.90) m/uL Hgb 8.4 L (13.0-17.5) gm/dL Hct 26.9 L (39.0-53.0) % Plt Count 250 (150-450) k/uL Comprehensive Metabolic Panel 02/04/21 Range/Units 07:52 Sodium 137 (137-145) mmol/L Potassium 3.9 (3.5-5.1) mmol/L Chloride 105 (98-107) mmol/L Carbon Dioxide 24 (22-30) mmol/L BUN 70 H (9-20) mg/dL Creatinine 1.50 H (0.66-1.25) mg/dL Glucose 132 H (74-99) mg/dL Calcium 9.2 (8.4-10.2) mg/dL AST 39 (17-59) U/L ALT 28 (4-49) U/L Alkaline Phosphatase 93 (38-126) U/L Total Protein 6.0 L (6.3-8.2) g/dL Albumin 3.2 L (3.5-5.0) g/dL Current Medications Generic Name Dose Route Start Last Admin Trade Name Freq PRN Reason Stop Dose Admin Acetaminophen 500 mg 02/03/21 10:46 Acetaminophen Tab 500 Mg Tab PO Q4H PRN Pain Albuterol Sulfate 2.5 mg 02/03/21 13:00 02/04/21 07:58 Albuterol Nebulized 2.5 Mg/3 Ml INHALATION 2.5 mg RT-TID [facility] Administration Allopurinol 100 mg 02/03/21 21:00 02/04/21 09:00 Allopurinol 100 Mg Tab PO 100 mg BID [facility] Administration Aspirin 81 mg 02/04/21 09:00 02/04/21 09:00 Aspirin 81 Mg PO 81 mg DAILY [facility] Administration Atorvastatin Calcium 20 mg 02/03/21 21:00 02/03/21 21:18 Atorvastatin 20 Mg Tab PO 20 mg HS [facility] Administration Budesonide/Formoterol Fumarate 2 puff 02/04/21 08:00 02/04/21 07:59 Symbicort 80-4.5 Mcg Inhaler INHALATION 2 puff RT-BID [facility] Administration Cholecalciferol 25 mcg 02/04/21 09:00 02/04/21 09:00 Cholecalciferol 25 Mcg (1000 Iu) Tablet PO 25 mcg DAILY [facility] Administration Cyanocobalamin 500 mcg 02/04/21 09:00 02/04/21 09:00 Cyanocobalamin 500 Mcg Tab PO 500 mcg DAILY [facility] Administration Ferrous Sulfate 325 mg 02/03/21 11:30 02/03/21 12:59 Ferrous Sulfate 325 Mg Tab PO 325 mg DAILY@1130 [facility] Administration Furosemide 40 mg 02/03/21 16:00 02/04/21 09:00 Furosemide 40 Mg Tab PO 40 mg BID@0900,1600 [facility] Administration Ceftriaxone Sodium 1 gm/ 50 mls @ 100 mls/hr 02/03/21 17:00 02/04/21 04:34 Sodium Chloride IVPB 100 mls/hr Q12H [facility] Administration Melatonin 6 mg 02/03/21 21:00 02/03/21 21:18 Melatonin 3 Mg Tablet PO 6 mg HS [facility] Administration Metoprolol Succinate 12.5 mg 02/04/21 09:00 02/04/21 09:00 Metoprolol Succinate (Er) 25 Mg Tab.Er.24h PO 12.5 mg DAILY [facility] Administration Midodrine 10 mg 02/03/21 12:30 02/04/21 06:03 Midodrine 5 Mg Tab PO 10 mg AC-TID [facility] Administration Morphine Sulfate 2 mg 02/03/21 10:45 Morphine Sulfate 2 Mg/Ml Syringe IV Q4HR PRN Severe Pain Naloxone HCl 0.2 mg 02/03/21 04:11 Naloxone 0.4 Mg/Ml 1 Ml Vial IV Q2M PRN Opioid Reversal Ondansetron HCl 4 mg 02/03/21 04:11 Ondansetron 4 Mg/2 Ml Vial IVP Q8HR PRN Nausea And Vomiting Pantoprazole Sodium 40 mg 02/04/21 09:00 02/04/21 09:00 Pantoprazole 40 Mg Tablet PO 40 mg DAILY [facility] Administration Spironolactone 12.5 mg 02/04/21 09:00 02/04/21 09:01 Spironolactone 25 Mg Tab PO 12.5 mg DAILY [facility] Administration Tamsulosin HCl 0.4 mg 02/04/21 18:30 Tamsulosin 0.4 Mg Cap.Er.24h PO PC-SUPPER [facility] Intake and Output 02/03/21 02/04/21 02/04/21 22:59 06:59 14:59 Intake Total 50 240 Output Total 1300 1300 Balance -1250 -1300 240 Intake: Intake, IV Titration 50 Amount cefTRIAXone 1 gm In 50 Sodium Chloride 0.9% 50 ml @ 100 mls/hr IVPB Q12H [facility] Rx#:[id number] Oral 240 Output: Urine 1300 1300 Other: Voiding Method Urinal Urinal # Voids 1 1 Weight 68.039 kg 67 kg 02/04/21 07:52 02/04/21 07:52
--- NOTE | 2021-02-04 15:08 | P.PN ---
Progress Note - Text Progress Note Date: 02/04/21 History of presenting complaint: A pleasant 89-year-old patient, of Dr. Rlolins whose chronic stable medical conditions include GERD, primary osteoarthritis, hyperlipidemia, chronic insomnia, COPD ( previous smoker), chronic gout, and DO NOT RESUSCITATE, moderate size hiatal hernia, CK D stage III, CHF EF 45% Also EGD: Showed duodenal polyp that was biopsied, moderate size hiatal hernia and John lesions. Some colon polyps were also biopsied. Recurrent GI bleed Patient recently in the hospital from January 26 through January 29 with CHF exacerbation, acute cardiorenal syndrome leading to ATN. Did receive 2 units of blood. Patient now presents with left flank pain. Diagnosed with acute pyelonephritis. Started on IV ceftriaxone 02/04/2021: Patient does not like the hospital for. Laying in bed. Breathing stable. Tired. Review of systems: Was done for constitutional, cardiovascular, GI, pulmonary. relevant finding as above Active Medications Acetaminophen (Acetaminophen Tab 500 Mg Tab) 500 mg PO Q4H PRN PRN Reason: Pain Albuterol Sulfate (Albuterol Nebulized 2.5 Mg/3 Ml) 2.5 mg INHALATION RT-TID [facility] Last Admin: 02/04/21 12:16 Dose: Not Given Documented by: Allopurinol (Allopurinol 100 Mg Tab) 100 mg PO BID [facility] Last Admin: 02/04/21 09:00 Dose: 100 mg Documented by: Aspirin (Aspirin 81 Mg) 81 mg PO DAILY [facility] Last Admin: 02/04/21 09:00 Dose: 81 mg Documented by: Atorvastatin Calcium (Atorvastatin 20 Mg Tab) 20 mg PO HS [facility] Last Admin: 02/03/21 21:18 Dose: 20 mg Documented by: Budesonide/Formoterol Fumarate (Symbicort 80-4.5 Mcg Inhaler) 2 puff INHALATION RT-BID [facility] Last Admin: 02/04/21 07:59 Dose: 2 puff Documented by: Cholecalciferol (Cholecalciferol 25 Mcg (1000 Iu) Tablet) 25 mcg PO DAILY [facility] Last Admin: 02/04/21 09:00 Dose: 25 mcg Documented by: Cyanocobalamin (Cyanocobalamin 500 Mcg Tab) 500 mcg PO DAILY [facility] Last Admin: 02/04/21 09:00 Dose: 500 mcg Documented by: Ferrous Sulfate (Ferrous Sulfate 325 Mg Tab) 325 mg PO DAILY@1130 [facility] Last Admin: 02/04/21 11:59 Dose: 325 mg Documented by: Furosemide (Furosemide 40 Mg Tab) 40 mg PO BID@0900,1600 [facility] Last Admin: 02/04/21 09:00 Dose: 40 mg Documented by: Ceftriaxone Sodium 1 gm/ (Sodium Chloride) 50 mls @ 100 mls/hr IVPB Q12H [facility] Last Admin: 02/04/21 04:34 Dose: 100 mls/hr Documented by: Melatonin (Melatonin 3 Mg Tablet) 6 mg PO HS [facility] Last Admin: 02/03/21 21:18 Dose: 6 mg Documented by: Metoprolol Succinate (Metoprolol Succinate (Er) 25 Mg Tab.Er.24h) 12.5 mg PO DAILY [facility] Last Admin: 02/04/21 09:00 Dose: 12.5 mg Documented by: Midodrine (Midodrine 5 Mg Tab) 10 mg PO AC-TID [facility] Last Admin: 02/04/21 11:59 Dose: 10 mg Documented by: Morphine Sulfate (Morphine Sulfate 2 Mg/Ml Syringe) 2 mg IV Q4HR PRN PRN Reason: Severe Pain Naloxone HCl (Naloxone 0.4 Mg/Ml 1 Ml Vial) 0.2 mg IV Q2M PRN PRN Reason: Opioid Reversal Ondansetron HCl (Ondansetron 4 Mg/2 Ml Vial) 4 mg IVP Q8HR PRN PRN Reason: Nausea And Vomiting Pantoprazole Sodium (Pantoprazole 40 Mg Tablet) 40 mg PO DAILY [facility] Last Admin: 02/04/21 09:00 Dose: 40 mg Documented by: Spironolactone (Spironolactone 25 Mg Tab) 12.5 mg PO DAILY [facility] Last Admin: 02/04/21 09:01 Dose: 12.5 mg Documented by: Tamsulosin HCl (Tamsulosin 0.4 Mg Cap.Er.24h) 0.4 mg PO PC-SUPPER [facility] Past medical history to include: john Erosions in the Stomach, Moderate Hiatal Hernia, Congestive Heart Failure with EF of 45%, GERD, Osteoarthritis, Hyperlipidemia, Insomnia, COPD, Gout, Chronic Kidney Disease Stage III, DO NOT RESUSCITATE Social History: Over a Year Ago Patient Was Smoking 2 Small Cigars a Day. Retired.@[employer]. Family history: Reviewed, noncontributory to presentation Physical examination: VITAL SIGNS: 97.4, 59, 18, 117 x 51, 99% on 2 L GENERAL: Reclining in bed, awake, tired EYES: Pupils equal. Conjunctiva pale. HEENT: External appearance of nose and ears normal, oral cavity grossly normal. Decreased hearing NECK: JVD possibly raised; masses not palpable. HEART: First and second heart sounds are normal; no edema. LUNGS: Respiratory rate increased, diminished breath sounds ABDOMEN: Soft, nontender, liver spleen not palpable, no masses palpable. PSYCH: Alert and oriented x3; mood and affect tired INVESTIGATIONS, reviewed in the clinical context: February 04: WBC 13.7 hemoglobin 8.4 platelets 250 sodium 137 potassium 3.9 BUN 70 creatinine 1.50 UA positive for leukoesterase, WBC, RBC January 29: Sodium 133 potassium 4.2 BUN 113 creatinine 2.02 Renal ultrasound: Right kidney small in size. Assessment and plan: -Acute UTI with cystitis causing sepsis IV ceftriaxone -chronic congestive heart failure exacerbation from systolic dysfunction EF 45%: Lasix 40 mg twice a day. Aldactone 12.5 mg daily -Atrophic right kidney -Moderate hiatal hernia -Primary osteoarthritis multiple joints bilaterally Pain medications. -Hyperlipidemia Lipitor 20 mg daily at bedtime -Chronic insomnia for multiple medical problems Melatonin 6 mg daily at bedtime -COPD in a previous smoker DuoNeb 3 times a day -Chronic kidney disease stage III likely nephrosclerosis [atrophic right kidney] Follow renal function -Iron deficiency anemia, and anemia of chronic kidney disease Ferrous sulfate -DO NOT RESUSCITATE Discussed diet with the patient. We will change to a ground diet. up in chair as tolerated.. Will DC IV morphine. Voltaren gel resume
[2021-02-04] MEDS: MENTHOL-ZINC OXIDE OINT 113 GM TUBE TOPICAL SCH (16:38)
[2021-02-04] MEDS ORDERED: TAMSULOSIN 0.4 MG CAP.ER.24H PO SCH (18:30)
[2021-02-04] MEDS: DICLOFENAC SODIUM GEL 100 GM TUBE TOPICAL SCH ×2 (19:24→22:47)
[2021-02-04] MEDS: MELATONIN 3 MG TABLET PO SCH (21:16)
[2021-02-04] MEDS: ATORVASTATIN 20 MG TAB PO SCH (21:17)
[2021-02-05] MEDS: MIDODRINE 5 MG TAB PO SCH ×2 (06:28→13:50)
[2021-02-05] MEDS: SYMBICORT 80-4.5 MCG INHALER INHALATION SCH ×3 (07:50→12:25)
[2021-02-05] MEDS: ALBUTEROL NEBULIZED 2.5 MG/3 ML INHALATION SCH ×3 (07:50→12:24)
[2021-02-05] MEDS: METOPROLOL SUCCINATE (ER) 25 MG TAB.ER.24H PO SCH (09:30)
[2021-02-05] MEDS: FUROSEMIDE 40 MG TAB PO SCH (09:30)
[2021-02-05] MEDS: CHOLECALCIFEROL 25 MCG (1000 IU) TABLET PO SCH (09:30)
[2021-02-05] MEDS: FERROUS SULFATE 325 MG TAB PO SCH (09:30)
[2021-02-05] MEDS: PANTOPRAZOLE 40 MG TABLET PO SCH (09:30)
[2021-02-05] MEDS: CYANOCOBALAMIN 500 MCG TAB PO SCH (09:30)
[2021-02-05] MEDS: SPIRONOLACTONE 25 MG TAB PO SCH (09:31)
[2021-02-05] MEDS: allopurinoL 100 MG TAB PO SCH (09:31)
[2021-02-05] MEDS: MENTHOL-ZINC OXIDE OINT 113 GM TUBE TOPICAL SCH ×2 (09:32→09:36)
[2021-02-05] MEDS: DICLOFENAC SODIUM GEL 100 GM TUBE TOPICAL SCH (09:32)
[2021-02-05] MEDS: ASPIRIN 81 MG PO SCH (09:34)
--- NOTE | 2021-02-05 10:59 | P.PN ---
Subjective Progress Note Date: 02/05/21 HISTORY OF PRESENT ILLNESS: This is a 89-year-old male with a past medical history significant for chronic persistent atrial fibrillation, congestive heart failure, aortic stenosis, CVA, and chronic kidney disease. Patient follows in the office with Dr. Fiore. We have been asked to see the patient in consultation for abnormal troponins. Patient examined at the bedside. Patient presented to the hospital secondary to flank pain. Patient was found to have a UTI and possible pyelonephritis. His also diagnosed with sepsis. The patient denies any chest pain or pressure. He denies any shortness of breath. EKG reveals atrial fibrillation with controlled ventricular rate Chest xray cardiomegaly, correlate for pulmonary artery hypertension. Probable basilar atelectasis. Difficult to exclude interstitial edema. Laboratory data: WBC 13.7. Hemoglobin 8.4. Platelet count 250. Sodium 137. Potassium 3.9. BUN 70. Creatinine 1.50. Troponin 0.489. 0.434. 0.408. Current home cardiac medications include Aldactone 12.5 mg daily, Crestor 10 mg daily, metoprolol succinate 12.5 mg daily, Lasix 40 mg twice a day, aspirin 81 mg daily Most recent echocardiogram obtained in July 2020 revealed EF 37%, Severe , moderate to severe tricuspid regurgitation, [id number] mitral regurgitation 02/05/2021 Patient examined this morning at the bedside. Patient denies chest pain or pressure. He denies shortness of breath. Echocardiogram completed revealed ejection fraction 50-55%, severe aortic stenosis, [id number] mitral regurgitation, mild tricuspid regurgitation, and moderate pulmonary hypertension. PHYSICAL EXAM: VITAL SIGNS: Reviewed. GENERAL: Well-developed in no acute distress. NECK: Supple. No JVD or thyromegaly LUNGS: Respirations even and unlabored. Lungs diminished to auscultation bilaterally. HEART: Regular rate and rhythm. S1 and S2 heard. + systolic murmur EXTREMITIES: Normal range of motion. No clubbing or cyanosis. Peripheral pulses intact. No lower extremity edema ASSESSMENT: Urinary tract infection Sepsis, possible pyelonephritis Abnormal troponins, secondary to above and CKD, no evidence of acute coronary syndrome Chronic persistent atrial fibrillation, not on anticoagulation due to history of GI bleeding Chronic systolic congestive heart failure, ejection fraction 37% Chronic kidney disease Valvular heart disease including severe aortic stenosis History of CVA PLAN: Patient is stable from a cardiac standpoint. We will sign off. Please reconsult if needed. Follow up with Dr. Fiore. Nurse practitioner note has been reviewed by physician. Signing provider agrees with the documented findings, assessment, and plan of care. Objective - Vital Signs Vital signs: Vital Signs Temp 97.8 F 02/05/21 04:00 Pulse 70 02/05/21 08:03 Resp 18 02/05/21 04:00 BP 147/61 02/05/21 04:00 Pulse Ox 97 02/05/21 04:00 Intake & Output 02/04/21 02/05/21 02/05/21 18:59 06:59 18:59 Intake Total 600 180 Output Total 300 800 Balance 300 -800 180 Weight 66 kg Intake: Oral 600 180 Output: Urine 300 800 Other: Voiding Method Urinal Urinal # Voids 3 2 - Labs CBC & Chem 7: 02/04/21 07:52 02/04/21 07:52 Labs: Microbiology - Last 24 Hours (Table) 02/03/21 18:00 Urine Culture - Final Urine,Voided
[2021-02-05 11:08] VITALS: TEMP 98
[2021-02-05 12:23] LABS: Anisocytosis Slight; HGB 8.5 gm/dL (13.0-17.5); Hypochromasia Slight; MCH 30.3 pg (25.0-35.0); MCHC 32.9 g/dL (31.0-37.0); MCV 92.2 fL (80.0-100.0); Mean Platelet Volume 9.6; Platelet Count 220 k/uL (150-450); Poikilocytosis Slight; RBC 2.82 m/uL (4.30-5.90); RDW 18.1 % (11.5-15.5); WBC 10.6 k/uL (3.8-10.6)
[2021-02-05 12:58] LABS: Potassium 3.9 mmol/L (3.5-5.1)
--- NOTE | 2021-02-05 13:23 | P.PN ---
Subjective Progress Note Date: 02/05/21 Principal diagnosis: No aucte overnight, Denies flank pain, Denies any dysuria or gross hematuria. Urine culture negative Objective - Vital Signs Vital signs: Vital Signs Temp 98.0 F 02/05/21 08:00 Pulse 70 02/05/21 08:03 Resp 18 02/05/21 08:00 BP 138/64 02/05/21 08:00 Pulse Ox 99 02/05/21 08:00 Intake & Output 02/04/21 02/05/21 02/05/21 18:59 06:59 18:59 Intake Total 600 180 Output Total 300 800 Balance 300 -800 180 Weight 66 kg Intake: Oral 600 180 Output: Urine 300 800 Other: Voiding Method Urinal Urinal Urinal # Voids 3 2 1 - Constitutional General appearance: Present: no acute distress - Psychiatric Psychiatric: Present: A&O x's 3 - Labs CBC & Chem 7: 02/05/21 12:00 02/05/21 12:00 Labs: Abnormal Lab Results - Last 24 Hours (Table) 02/05/21 02/05/21 Range/Units 12:00 12:00 RBC 2.82 L (4.30-5.90) m/uL Hgb 8.5 L (13.0-17.5) gm/dL Hct 26.0 L (39.0-53.0) % RDW 18.1 H (11.5-15.5) % BUN 53 H (9-20) mg/dL Creatinine 1.46 H (0.66-1.25) mg/dL Glucose 117 H (74-99) mg/dL Microbiology - Last 24 Hours (Table) 02/03/21 18:00 Urine Culture - Final Urine,Voided Assessment and Plan Assessment: 89 yo male admitted to the hospital with possible UTI, urine culture is negative . Left chronic hydronephrosis versus peripelvic cyst. Creatinine down to 1.46 this morning, flank pain resolved. No intervention for [place] given the lack of symptoms, stable kidney function -Okay for discharge from urology standpoint
[2021-02-05 15:00] VITALS: BP 142/57; PULSE 62
--- NOTE | 2021-02-05 15:23 | P.DS ---
Providers Date of admission: 02/04/21 08:24 Expected date of discharge: 02/05/21 Attending physician: Obi Saini Consults: 02/03/21 10:49 Consult Physician Routine Consulting Provider: Geovanni Schreiber Consult Reason/Comments: Left hydronephrosis Do you want consulting provider notified?: Yes Primary care physician: Jose Rollins [facility] Course: History of presenting complaint: A pleasant 89-year-old patient, of Dr. Rollins whose chronic stable medical conditions include GERD, primary osteoarthritis, hyperlipidemia, chronic insomnia, COPD ( previous smoker), chronic gout, and DO NOT RESUSCITATE, moderate size hiatal hernia, CK D stage III, CHF EF 45% Also EGD: Showed duodenal polyp that was biopsied, moderate size hiatal hernia and John lesions. Some colon polyps were also biopsied. Recurrent GI bleed Patient recently in the hospital from January 26 through January 29 with CHF exacerbation, acute cardiorenal syndrome leading to ATN. Did receive 2 units of blood. Patient now presents with left flank pain. Diagnosed with acute UTI with cystitis and possible pyelonephritis.. Started on IV ceftriaxone Flomax was added by urology. February 05: Doing well. Fair oral intake. Making good urine. No urinary symptoms. We'll discharge on Ceftin. Care was discussed with the patient. Questions answered. Follow-up with PCP, cardiology, urology, nephrology. Luna padilla guarded Discussion and discharge planning more than 35 minutes Consultation: [facility] Past medical history to include: john Erosions in the Stomach, Moderate Hiatal Hernia, Congestive Heart Failure with EF of 45%, GERD, Osteoarthritis, Hyperlipidemia, Insomnia, COPD, Gout, Chronic Kidney Disease Stage III, DO NOT RESUSCITATE Social History: Over a Year Ago Patient Was Smoking 2 Small Cigars a Day. Retired.@[employer]. Family history: Reviewed, noncontributory to presentation Physical examination: VITAL SIGNS: Afebrile, 62, 18, 142/57, 98% on 2 L GENERAL: Reclining in bed, awake, comfortable EYES: Pupils equal. Conjunctiva pale. HEENT: External appearance of nose and ears normal, oral cavity grossly normal. Decreased hearing NECK: JVD possibly raised; masses not palpable. HEART: First and second heart sounds are normal; no edema. LUNGS: Respiratory rate increased, diminished breath sounds ABDOMEN: Soft, nontender, liver spleen not palpable, no masses palpable. PSYCH: Alert and oriented x3; mood and affect normal INVESTIGATIONS, reviewed in the clinical context: February 05: WBC 10.6 hemoglobin 8.5 platelets 220 potassium 3.9 creatinine 1.46 February 04: WBC 13.7 hemoglobin 8.4 platelets 250 sodium 137 potassium 3.9 BUN 70 creatinine 1.50 UA positive for leukoesterase, WBC, RBC January 29: Sodium 133 potassium 4.2 BUN 113 creatinine 2.02 Renal ultrasound: Right kidney small in size. 2-D echocardiogram: Moderate concentric LVH. EF 50-55%. Severe aortic stenosis. Moderate pulmonary hypertension some mitral and tricuspid r egurgitation. Assessment and plan: -Acute UTI with cystitis causing sepsis, cultures negative IV ceftriaxone. Discharged home on Ceftin 250 twice a day for 7 days -chronic congestive heart failure exacerbation from systolic/diastolic dysfunction EF 45%: From aortic stenosis Lasix 40 mg twice a day. 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 -Hyperlipidemia Lipitor 20 mg daily at bedtime -Chronic insomnia for multiple medical problems Melatonin 6 mg daily at bedtime -COPD in a previous smoker DuoNeb 3 times a day -Chronic kidney disease stage III likely nephrosclerosis [atrophic right kidney] Follow renal function -Iron deficiency anemia, and anemia of chronic kidney disease Ferrous sulfate -DO NOT RESUSCITATE Disposition: [facility] Labs: CBC BMP: 3 days Patient Condition at Discharge: Fair Plan - Discharge Summary New Discharge Prescriptions: New Cefuroxime [Ceftin] 250 mg PO BID #14 tab Tamsulosin [Flomax] 0.4 mg PO PC-SUPPER #30 Tamsulosin [Flomax] 0.4 mg PO PC-SUPPER #30 cap Continue Menthol-Zinc Oxide Oint [Calmoseptine Oint] 1 applic TOPICAL DAILY Acetaminophen Tab [Tylenol] 500 mg PO Q4H PRN PRN Reason: Pain Cyanocobalamin [Vitamin B-12] 500 mcg PO DAILY Ferrous Gluconate 324 mg PO DAILY@1130 Diclofenac Sodium Gel [Voltaren Gel] 4 gm TOPICAL QID Albuterol Nebulized [Ventolin Nebulized] 2.5 mg INHALATION RT-TID Loperamide [Imodium] 2 - 4 mg PO QID PRN PRN Reason: Diarrhea Liquacel 30 ml PO BID Aspirin EC [Ecotrin Low Dose] 81 mg PO DAILY Spironolactone [Aldactone] 12.5 mg PO DAILY #30 tablet Cholecalciferol [Vitamin D3 (25 Mcg = 1000 Iu)] 25 mcg PO DAILY Rosuvastatin [Crestor] 10 mg PO HS Omeprazole 20 mg PO DAILY Midodrine HCl [ProAmatine] 10 mg PO AC-TID Metoprolol Succinate [Toprol XL] 12.5 mg PO DAILY Melatonin 6 mg PO HS Fluticasone/Vilanterol [Breo Ellipta 100-25 Mcg Inhaler] 1 puff INHALATION RT-DAILY Allopurinol [Zyloprim] 100 mg PO BID Albuterol Inhaler [Ventolin Hfa Inhaler] 1 puff INHALATION RT-Q4H PRN PRN Reason: Shortness Of Breath Furosemide [Lasix] 40 mg PO BID@0900,1600 #60 tab Discharge Medication List Acetaminophen Tab [Tylenol] 500 mg PO Q4H PRN 10/24/20 [History] Albuterol Inhaler [Ventolin Hfa Inhaler] 1 puff INHALATION RT-Q4H PRN 10/24/20 [History] Allopurinol [Zyloprim] 100 mg PO BID 10/24/20 [History] Cholecalciferol [Vitamin D3 (25 Mcg = 1000 Iu)] 25 mcg PO DAILY 10/24/20 [History] Cyanocobalamin [Vitamin B-12] 500 mcg PO DAILY 10/24/20 [History] Ferrous Gluconate 324 mg PO DAILY@1130 10/24/20 [History] Fluticasone/Vilanterol [Breo Ellipta 100-25 Mcg Inhaler] 1 puff INHALATION RT- DAILY 10/24/20 [History] Melatonin 6 mg PO HS 10/24/20 [History] Menthol-Zinc Oxide Oint [Calmoseptine Oint] 1 applic TOPICAL DAILY 10/24/20 [History] Metoprolol Succinate [Toprol XL] 12.5 mg PO DAILY 10/24/20 [History] Midodrine HCl [ProAmatine] 10 mg PO AC-TID 10/24/20 [History] Omeprazole 20 mg PO DAILY 10/24/20 [History] Rosuvastatin [Crestor] 10 mg PO HS 10/24/20 [History] Albuterol Nebulized [Ventolin Nebulized] 2.5 mg INHALATION RT-TID 01/26/21 [History] Aspirin EC [Ecotrin Low Dose] 81 mg PO DAILY 01/26/21 [History] Diclofenac Sodium Gel [Voltaren Gel] 4 gm TOPICAL QID 01/26/21 [History] Liquacel 30 ml PO BID 01/26/21 [History] Loperamide [Imodium] 2 - 4 mg PO QID PRN 01/26/21 [History] Furosemide [Lasix] 40 mg PO BID@0900,1600 #60 tab 01/29/21 [Rx] Spironolactone [Aldactone] 12.5 mg PO DAILY #30 tablet 01/29/21 [Rx] Cefuroxime [Ceftin] 250 mg PO BID #14 tab 02/05/21 [Rx] Tamsulosin [Flomax] 0.4 mg PO PC-SUPPER #30 02/05/21 [Rx] Tamsulosin [Flomax] 0.4 mg PO PC-SUPPER #30 cap 02/05/21 [Rx] Follow up Appointment(s)/Referral(s): cardiology,dr [Other] - 2 Weeks Jose Rollins MD [Primary Care Provider] - 1-2 days Kong Singh MD [STAFF PHYSICIAN] - 1 Week Patient Instructions/Handouts: Hydronephrosis (DC) Activity/Diet/Wound Care/Special Instructions: Notify [facility] prior to discharge that patient will be returning - RN needs to sign med list
== END 2021-02-05 15:57 | disposition home or self-care (01) | DRG 871 ==
LOC: EC 01:22 → 3SCARD 04:11 → OBSVTOIN 02-04 08:24
PROVIDERS: ADMIT Hospitalist; ATTEND Hospitalist
DX: A41.9 Sepsis, unspecified organism (principal); I50.43 Acute on chronic combined systolic (congestive) and diastolic (congestive) heart failure; I13.0 Hypertensive heart and chronic kidney disease with heart failure and stage 1 through stage 4 chronic kidney disease, or unspecified chronic kidney disease; N13.6 Pyonephrosis; I48.19 Other persistent atrial fibrillation; I24.8 Other forms of acute ischemic heart disease; J98.11 Atelectasis; I69.259 Hemiplegia and hemiparesis following other nontraumatic intracranial hemorrhage affecting unspecified side; D50.9 Iron deficiency anemia, unspecified; Z66 Do not resuscitate; Z20.822 Contact with and (suspected) exposure to COVID-19; D63.1 Anemia in chronic kidney disease; E78.5 Hyperlipidemia, unspecified; F51.04 Psychophysiologic insomnia; M15.9 Polyosteoarthritis, unspecified; N18.32 Chronic kidney disease, stage 3b; I08.3 Combined rheumatic disorders of mitral, aortic and tricuspid valves; J44.9 Chronic obstructive pulmonary disease, unspecified; M1A.9XX0 Chronic gout, unspecified, without tophus (tophi); R53.1 Weakness; R13.10 Dysphagia, unspecified; K21.9 Gastro-esophageal reflux disease without esophagitis; M89.49 Other hypertrophic osteoarthropathy, multiple sites; R33.8 Other retention of urine; I27.29 Other secondary pulmonary hypertension; K44.9 Diaphragmatic hernia without obstruction or gangrene; Z87.891 Personal history of nicotine dependence; Z79.82 Long term (current) use of aspirin; Z88.0 Allergy status to penicillin; Z79.899 Other long term (current) drug therapy; Z87.19 Personal history of other diseases of the digestive system
CPT/HCPCS: 36415; 71046; 74176; 80048; 80053; 81001; 83735; 83880; 84100; 84484; 85025; 85027; 85610; 85730; 87086; 87635; 93005; 93306; 94640; 94760; 96361; 96374; 99285

== ENCOUNTER 2021-07-02 12:08 | Inpatient (IN) | payer MEDICARE ==
[2021-07-02] MEDS ORDERED: FUROSEMIDE 10 MG/ML 4 ML VIAL IV STA (12:42)
--- NOTE | 2021-07-02 12:52 | ED ---
General Adult HPI - General Chief complaint: Fall Stated complaint: fall Time Seen by Provider: 07/02/21 12:20 Source: patient, EMS, RN notes reviewed, old records reviewed Mode of arrival: EMS Limitations: physical limitation - History of Present Illness Initial comments: This is an 89-year-old male who presents emergency department stating that he tripped over his oxygen cord and fell and hit his head. Patient states he does not please on any blood thinners. Patient denies any headache he states his scalp is a little sore. Patient denies any neck pain. Patient denies any numbness or weakness. Patient chest pain or patient's any back pain. Patient's abdominal pain. Patient denies any new extremity pain. Patient states she also would like to be seen for the fact that he is having more more difficulty breathing over the last few weeks and states she having more swelling in his legs. Patient denies any chest pain or palpitations. Patient denies any recent fever chills or cough. - Related Data Home Medications Medication Instructions Recorded Confirmed Acetaminophen Tab [Tylenol] 500 mg PO TID@0800,1400,199910/24/20 07/02/21 Albuterol Inhaler [Ventolin Hfa 1 puff INHALATION RT-Q4H PRN 10/24/20 07/02/21 Inhaler] Allopurinol [Zyloprim] 100 mg PO BID 10/24/20 07/02/21 Cholecalciferol [Vitamin D3 (25 25 mcg PO DAILY 10/24/20 07/02/21 Mcg = 1000 Iu)] Cyanocobalamin [Vitamin B-12] 500 mcg PO DAILY 10/24/20 07/02/21 Ferrous Gluconate 324 mg PO DAILY@1130 10/24/20 07/02/21 Fluticasone/Vilanterol [Breo 1 puff INHALATION RT-DAILY 10/24/20 07/02/21 Ellipta 100-25 Mcg Inhaler] Menthol-Zinc Oxide Oint 1 applic TOPICAL BID 10/24/20 07/02/21 [Calmoseptine Oint] Metoprolol Succinate [Toprol XL] 12.5 mg PO DAILY@0600 10/24/20 07/02/21 Midodrine HCl [ProAmatine] 10 mg PO AC-TID 10/24/20 07/02/21 Omeprazole 20 mg PO DAILY 10/24/20 07/02/21 Rosuvastatin [Crestor] 10 mg PO HS 10/24/20 07/02/21 Albuterol Nebulized [Ventolin 2.5 mg INHALATION RT-TID 01/26/21 07/02/21 Nebulized] Diclofenac Sodium Gel [Voltaren 4 gm TOPICAL QID 01/26/21 07/02/21 Gel] Liquacel 30 ml PO BID 01/26/21 07/02/21 Loperamide [Imodium] 2 - 4 mg PO QID PRN 01/26/21 07/02/21 Amoxic-Pot Clav 500-125 mg 1 tab PO BID@0800,2000 07/02/21 07/02/21 [Augmentin 500-125 mg] Hydrogel 1 applic TOPICAL DAILY@1200 07/02/21 07/02/21 Lactose-Reduced Food [Boost] 1 can PO DAILY 07/02/21 07/02/21 Levothyroxine Sodium [Synthroid] 12.5 mcg PO DAILY@1200 07/02/21 07/02/21 Magnesium Hydroxide [Milk of 1,200 mg PO Q72H PRN 07/02/21 07/02/21 Magnesia] Melatonin 10 mg PO HS 07/02/21 07/02/21 Nystatin 100,000 Unit/gm Powd 1 applic TOPICAL BID 07/02/21 07/02/21 [Mycostatin Powder] Spironolactone [Aldactone] 12.5 mg PO BID 07/02/21 07/02/21 Temazepam 7.5 mg PO HS 07/02/21 07/02/21 Previous Rx's Medication Instructions Recorded Furosemide [Lasix] 40 mg PO BID@0900,1600 #60 tab 01/29/21 Allergies Allergy/AdvReac Type Severity Reaction Status Date / Time Penicillins Allergy Severe Anaphylaxis Verified 07/02/21 13:18 Review of Systems ROS Statement: Those systems with pertinent positive or pertinent negative responses have been documented in the HPI. ROS Other: All systems not noted in ROS Statement are negative. Past Medical History Past Medical History: Cancer, Heart Failure, CVA/TIA, GERD/Reflux, Osteoarthritis (OA), Renal Disease Additional Past Medical History / Comment(s): insomnia, subarachnoid hemorrhage, hemiplegia and hemiparesis, dysphagia, gout, History of Any Multi-Drug Resistant Organisms: None Reported Past Surgical History: Unable to Obtain Past Anesthesia/Blood Transfusion Reactions: No Reported Reaction Past Psychological History: No Psychological Hx Reported Smoking Status: Former smoker Past Alcohol Use History: None Reported Past Drug Use History: None Reported - Past Family History Family Family Medical History: No Reported History General Exam - General Exam Comments Initial Comments: GENERAL: Patient is well-developed and well-nourished. Patient is nontoxic and well- hydrated and is in mild distress. ENT: Neck is soft and supple. No significant lymphadenopathy is noted. Oropharynx is clear. Moist mucous membranes. Neck has full range of motion without eliciting any pain. EYES: The sclera were anicteric and conjunctiva were pink and moist. Extraocular movements were intact and pupils were equal round and reactive to light. Eyelids were unremarkable. PULMONARY: Unlabored respirations. Good breath sounds bilaterally. CARDIOVASCULAR: There is a regular rate and rhythm without any murmurs gallops or rubs. ABDOMEN: Soft and nontender with normal bowel sounds. SKIN: Skin is clear with no lesions or rashes and otherwise unremarkable. NEUROLOGIC: Patient is alert and oriented x3. Cranial nerves II through XII are grossly intact. Motor and sensory are also intact. Normal speech, volume and content. Symmetrical smile. MUSCULOSKELETAL: Normal extremities with adequate strength and full range of motion. 2+ edema bilaterally LYMPHATICS: No significant lymphadenopathy is noted PSYCHIATRIC: Normal psychiatric evaluation. Limitations: physical limitation Course Vital Signs 07/02/21 07/02/21 12:20 14:20 Pulse Rate 52 L 50 L Respiratory 20 20 Rate Blood Pressure 151/62 132/59 O2 Sat by Pulse 95 93 L Oximetry Medical Decision Making - Medical Decision Making EKG shows atrial fibrillation at a rate of 54 bpm QRS is 125 Q-T intervals 472 QTC is 459. Patient's EKG shows no ST segment elevation. Computed tomography scan shows a contusion versus subarachnoid hemorrhage bilaterally. Patient also had a 1.5 mm subdural in the mid falx. I spoke with Dr. Flynn he wanted to be on consult. I spoke with Dr. Saini he agreed to accept the patient. I wrote admitting orders and I consult the neurology - Lab Data Result diagrams: 07/02/21 13:05 07/02/21 14:14 Lab Results 07/02/21 07/02/21 07/02/21 Range/Units 13:05 13:05 13:05 WBC 12.5 H (3.8-10.6) k/uL RBC 3.10 L (4.30-5.90) m/uL Hgb 10.2 L (13.0-17.5) gm/dL Hct 31.9 L (39.0-53.0) % MCV 103.0 H (80.0-100.0) fL MCH 33.0 (25.0-35.0) pg MCHC 32.1 (31.0-37.0) g/dL RDW 17.5 H (11.5-15.5) % Plt Count 171 (150-450) k/uL MPV 11.5 Neutrophils % 82 % Lymphocytes % 5 % Monocytes % 7 % Eosinophils % 4 % Basophils % 0 % Neutrophils # 10.3 H (1.3-7.7) k/uL Lymphocytes # 0.7 L (1.0-4.8) k/uL Monocytes # 0.9 (0-1.0) k/uL Eosinophils # 0.5 (0-0.7) k/uL Basophils # 0.1 (0-0.2) k/uL Hypochromasia Moderate Anisocytosis Slight Macrocytosis Moderate PT 11.8 (9.0-12.0) sec INR 1.1 (<1.2) APTT 26.4 (22.0-30.0) sec D-Dimer 0.75 H (<0.60) mg/L FEU Sodium (137-145) mmol/L Potassium (3.5-5.1) mmol/L Chloride (98-107) mmol/L Carbon Dioxide (22-30) mmol/L Anion Gap mmol/L BUN (9-20) mg/dL Creatinine (0.66-1.25) mg/dL Est GFR (CKD-EPI)AfAm (>60 ml/min/1.73 sqM) Est GFR (CKD-EPI)NonAf (>60 ml/min/1.73 sqM) Glucose (74-99) mg/dL Plasma Lactic Acid Jose 0.9 (0.7-2.0) mmol/L Calcium (8.4-10.2) mg/dL Magnesium (1.6-2.3) mg/dL Total Bilirubin (0.2-1.3) mg/dL AST (17-59) U/L ALT (4-49) U/L Alkaline Phosphatase (38-126) U/L Troponin I (0.000-0.034) ng/mL NT-Pro-B Natriuret Pep pg/mL Total Protein (6.3-8.2) g/dL Albumin (3.5-5.0) g/dL 07/02/21 07/02/21 07/02/21 Range/Units 13:05 14:14 14:14 WBC (3.8-10.6) k/uL RBC (4.30-5.90) m/uL Hgb (13.0-17.5) gm/dL Hct (39.0-53.0) % MCV (80.0-100.0) fL MCH (25.0-35.0) pg MCHC (31.0-37.0) g/dL RDW (11.5-15.5) % Plt Count (150-450) k/uL MPV Neutrophils % % Lymphocytes % % Monocytes % % Eosinophils % % Basophils % % Neutrophils # (1.3-7.7) k/uL Lymphocytes # (1.0-4.8) k/uL Monocytes # (0-1.0) k/uL Eosinophils # (0-0.7) k/uL Basophils # (0-0.2) k/uL Hypochromasia Anisocytosis Macrocytosis PT (9.0-12.0) sec INR (<1.2) APTT (22.0-30.0) sec D-Dimer (<0.60) mg/L FEU Sodium 140 (137-145) mmol/L Potassium 4.3 (3.5-5.1) mmol/L Chloride 102 (98-107) mmol/L Carbon Dioxide 26 (22-30) mmol/L Anion Gap 12 mmol/L BUN 105 H* (9-20) mg/dL Creatinine 2.64 H (0.66-1.25) mg/dL Est GFR (CKD-EPI)AfAm 24 (>60 ml/min/1.73 sqM) Est GFR (CKD-EPI)NonAf 21 (>60 ml/min/1.73 sqM) Glucose 116 H (74-99) mg/dL Plasma Lactic Acid Jose (0.7-2.0) mmol/L Calcium 9.3 (8.4-10.2) mg/dL Magnesium 2.0 (1.6-2.3) mg/dL Total Bilirubin 1.2 (0.2-1.3) mg/dL AST 54 (17-59) U/L ALT 30 (4-49) U/L Alkaline Phosphatase 204 H (38-126) U/L Troponin I 0.310 H* (0.000-0.034) ng/mL NT-Pro-B Natriuret Pep 77536 pg/mL Total Protein 7.0 (6.3-8.2) g/dL Albumin 4.0 (3.5-5.0) g/dL Critical Care Time Critical Care Time: Yes Total Critical Care Time: 35 Disposition Clinical Impression: Subarachnoid hemorrhage, Subdural hematoma, Acute on chronic renal failure, Congestive heart failure, Elevated troponin, Fall Disposition: ADMITTED IP TO THIS HOSP Referrals: Jose Rollins MD [Primary Care Provider] - 1-2 days Time of Disposition: 16:33
[2021-07-02 13:38] LABS: Anisocytosis Slight; Basophils # (A) 0.1 k/uL (0-0.2); Basophils % (A) 0 %; Eosinophils # (A) 0.5 k/uL (0-0.7); Eosinophils % (A) 4 %; HCT 31.9 % (39.0-53.0); HGB 10.2 gm/dL (13.0-17.5); Hypochromasia Moderate; Lymphocytes # (A) 0.7 k/uL (1.0-4.8); Lymphocytes % (A) 5 %; MCHC 32.1 g/dL (31.0-37.0); Macrocytosis Moderate; Mean Platelet Volume 11.5; Monocytes # (A) 0.9 k/uL (0-1.0); Monocytes % (A) 7 %; Neutrophils # (A) 10.3 k/uL (1.3-7.7); Neutrophils % (A) 82 %; Platelet Count 171 k/uL (150-450); RDW 17.5 % (11.5-15.5); WBC 12.5 k/uL (3.8-10.6)
[2021-07-02 13:44] LABS: INR 1.1 (<1.2); Partial Thromboplastin Time 26.4 sec (22.0-30.0); Prothrombin Time 11.8 sec (9.0-12.0)
[2021-07-02 14:42] LABS: Calcium 9.3 mg/dL (8.4-10.2); Potassium 4.3 mmol/L (3.5-5.1); Total Bilirubin 1.2 mg/dL (0.2-1.3)
--- NOTE | 2021-07-02 15:03 | CT ---
EXAMINATION TYPE: CT brain dirk marrero con DATE OF EXAM: 07/02/2021 COMPARISON: None HISTORY: 89-year-old male trauma, right frontal contusion and pain after Fall CT DLP: 1316.2 mGycm Automated exposure control for dose reduction was used. Technique: Examination of the head was done in axial plane without intravenous contrast. Coronal and sagittal reconstructions performed. CT of the cervical spine was obtained in axial plane without intravenous injection of contrast mater ial. Coronal and sagittal reformatted images were obtained from the axial views for evaluation of f ractures, spinal alignment and canal. FINDINGS: Head: Moderate anterior right frontal scalp contusion. No underlying calvarial fracture. Tiny punctate 3 mm hyperdensity lateral inferior right frontal convexity, axial image 32. Punctate 4 mm hyperdensity lateral left frontoparietal junction and axial image 32. Suggestion of a trace 1.5 mm thick area of hyperdensity along the mid falx, axial image 37. Some chronic encephalomalacia anterior left parietal lobe, axial image 34. Some subtle encephalomalacia posterior right occipital lobe as well. No evidence for acute ischemic changes, mass, mass-effect, or otherwise any additional extra-axial fl uid collection. There is no effacement of cerebral sulci or basal subarachnoid cisterns. There is no midline shift. Thao-white matter distinction is preserved. There is mild ventriculomegaly, evidence ratio calculated at 0.33. Rightward nasal septal deviation. Paranasal sinuses and mastoid air cells are pneumatized. Cervical spine: No cranial cervical junction and midbody, predental space widening, or prevertebral soft tissue swell ing. Degenerative changes at the C1 dens articulation. Moderate to advanced disc/endplate degenerative changes especially mid to lower cervical spine as wel l as hypertrophic facet and uncovertebral joint arthropathy. There is degenerative grade 1 retrolisthesis C6-C7 and grade 1 anterolisthesis C7-T1. [facility] within the visualized upper thoracic spine. No acute fracture of the cervical spine. Disc ossify complexes result in moderate narrowing of the spinal canal at C5-C6 and C6-C7. Mild C3-C4 and C4-C5. [id number] left neuroforaminal stenosis at C2-C3 and variable moderate neuroforaminal narrowing at multiple additional levels. More moderate to severe on the left at C6-C7. Prominent ectatic aortic arch vasculature. Extensive breathing motion in the visualized upper lungs. Sagittal and coronal reformatted images confirm above findings. COMBINED IMPRESSION: 1. Anterior right frontal scalp contusion. Either punctate 3 to 4 mm cortical contusions versus trace subarachnoid blood with one focus on either side. Additional trace 1.5 mm thick acute subdural hemat deniz along the mid falx. No mass effect or midline shift. Findings called to Dr. De La Garza in the ER at 2:5 8 PM. 2. Mild cerebral atrophy. Mild ventriculomegaly probably due to central cerebral atrophy. 3. Some encephalomalacia left frontoparietal junction and right occipital lobe relating to prior vasc ular or traumatic insults. 4. Moderate to advanced spondylotic changes especially mid to lower cervical spine. Degenerative grad e 1 spondylolisthesis C6-C7 and C7-T1. No acute fracture of the cervical spine.
--- NOTE | 2021-07-02 15:44 | XR ---
EXAMINATION TYPE: XR chest 2V DATE OF EXAM: 07/02/2021 COMPARISON: X-ray dated 02/03/2021 HISTORY: Difficulty breathing TECHNIQUE: Frontal and lateral views of the chest are obtained. FINDINGS: Congested bilateral pulmonary vasculature with prominent interstitial lung markings and suspected sub tle areas of alveolar opacities, most evident in the left upper to mid and right lower lung zones. Th is may suggest acute pulmonary edema however associated infection cannot be excluded, please correlat e clinically. No sizable pleural effusion or definite pneumothorax. Slightly increased cardiac transverse diameter. Aortic atherosclerotic calcifications. Degenerative changes of the thoracic spine. IMPRESSION: Findings are suggestive acute pulmonary edema however associated infection cannot be excluded, please correlate clinically.
[2021-07-02] MEDS: ALBUTEROL NEBULIZED 2.5 MG/3 ML INHALATION SCH (19:05)
[2021-07-02] MEDS ORDERED: CALCIUM CARBONATE 500 MG CHEWABLE PO PRN (20:22)
[2021-07-02] MEDS ORDERED: LACTULOSE 20 GM/30 ML CUP PO PRN (20:22)
[2021-07-02] MEDS ORDERED: NALOXONE 0.4 MG/ML 1 ML VIAL IV PRN (20:22)
[2021-07-02] MEDS ORDERED: ONDANSETRON 4 MG/2 ML VIAL IVP PRN (20:22)
[2021-07-02] MEDS ORDERED: ACETAMINOPHEN TAB 325 MG TAB PO PRN (20:22)
--- NOTE | 2021-07-02 20:37 | P.HPIM ---
History of Present Illness H&P Date: 07/02/21 Chief Complaint: Short of breath History of presenting complaint: A pleasant 89-year-old patient, of Dr. Rollins whose chronic stable medical conditions include GERD, primary osteoarthritis, hyperlipidemia, chronic insomnia, COPD ( previous smoker), chronic gout, and DO NOT RESUSCITATE, moderate size hiatal hernia, CK D stage III, CHF EF 45%. EGD: Moderate size hiatal hernia with John on lesions. Causing recurrent GI bleed. Patient lives in the assisted living. Patient for last few days has been getting increasingly short of breath. Has been on Lasix. Told to increase his water intake by his family doctor. Increasing swelling of lower extremity. Today he got entangled in his oxygen cord and fell forwards hitting his head. Computed tomography scan of the head showed punctate 3-4 mm cortical contusion versus a subarachnoid blood with one focus on either side. 1.5 mm thick acute subdural hematoma along the mid falx. Evidence of encephalomalacia in the left frontoparietal junction and right occipital lobe. Spondylitic changes in the cervical spine. ER physician Dr. De La Garza spoke to patient's nephew Dr. bernal and given patient's age and comorbidities it was decided to manage patient conservatively. Review of systems: GEN.: Tired EYES: None HEENT: Decreased hearing NECK: None RESPIRATORY: [Short of breath CARDIOVASCULAR: Edema GASTROINTESTINAL: None GENITOURINARY: None MUSCULOSKELETAL: Joint pains LYMPHATICS: None HEMATOLOGICAL: None PSYCHIATRY: None NEUROLOGICAL: Assistance to get about Past medical history to include: john Erosions in the Stomach, Moderate Hiatal Hernia, Congestive Heart Failure with EF of 45%, GERD, Osteoarthritis, Hyperlipidemia, Insomnia, COPD, Gout, Chronic Kidney Disease Stage III, DO NOT RESUSCITATE Social History: Over a Year Ago Patient Was Smoking 2 Small Cigars a Day. Retired. Lives at [facility]. Family history: Reviewed, noncontributory to presentation Physical examination: VITAL SIGNS: 60, 22, 93/60, 94% on 2 L GENERAL: [BMI 28.3, reclining in bed, awake, tired short of breath]. EYES: [Pupils equal. Conjunctiva saloni]l. HEENT: [External appearance of nose and ears normal, oral cavity grossly normal]. Bruising over the right side of the scalp or anteriorly NECK: [JVD possibly raised; masses not palpable]. HEART: [First and second heart sounds are normal; edema present]. LUNGS:[ Respiratory rate increased; basal crackles]. ABDOMEN: [Soft, some distention nontender, liver spleen not palpable, no masses palpable]. PSYCH: [Alert and oriented x3; mood and affect normal]l. MUSCULOSKELETAL:No Clubbing/cyanosis;muscles-grossly intact. Evidence of OA EXTREMITIES: Stockings over the lower extremity NEUROLOGICAL: [Cranial nerves grossly intact; no facial asymmetry, power and sensation grossly intact]. LYMPHATICS: [No lymph nodes palpable in the axilla and neck] INVESTIGATIONS, reviewed in the clinical context: White count 12.5 hemoglobin 10.2 platelets 171 sodium 140 potassium 4.3 BUN 105 creatinine 2.64 Troponin I 0.310 0.259 EKG tracing personally reviewed by me-atrial fibrillation. Rate 54 Renal ultrasound: Right kidney small in size. 2-D echocardiogram: Moderate concentric LVH. EF 50-55%. Severe aortic stenosis. Moderate pulmonary hypertension some mitral and tricuspid regurgitation. Chest x-ray film personally reviewed by me-pulmonary edema, kyphosis Assessment and plan: -Acute on chronic congestive heart failure exacerbation from systolic/diastolic dysfunction EF 45%: From aortic stenosis Start the patient on Bumex drip 0.5 mg an hour. Patient had been increased dose of Lasix at home not with much effect. Strict I's and O's. -Severe aortic stenosis Follow clinically -Acute on chronic kidney disease likely cardiorenal syndrome. Expect some response to diuresis. 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 -Hyperlipidemia Lipitor 20 mg daily at bedtime -Chronic insomnia for multiple medical problems Melatonin 6 mg daily at bedtime -COPD in a previous smoker DuoNeb 3 times a day -Chronic kidney disease stage III likely nephrosclerosis atrophic right kidney Follow renal function -Iron deficiency anemia, and anemia of chronic kidney disease Ferrous sulfate -Acute on chronic medical debility -Troponin leak in the setting of acute on chronic kidney disease, no clinical evidence of acute coronary syndrome. -DO NOT RESUSCITATE Start Bumex drip 0.5 mg an hour. Strict I's and O's. Resume home medications. Fall precautions. Follow labs. Hold off DVT prophylaxis review of subdural hematoma. Care was discussed with patient's nephew Dr. bernal over the phone. Given the complexity and severity of patient's condition expect the patient to be in the hospital at least for 2 overnights Past Medical History Past Medical History: Cancer, Heart Failure, CVA/TIA, GERD/Reflux, Osteoarthritis (OA), Renal Disease Additional Past Medical History / Comment(s): insomnia, subarachnoid hemorrhage, hemiplegia and hemiparesis, dysphagia, gout, History of Any Multi-Drug Resistant Organisms: None Reported Past Surgical History: Unable to Obtain Past Anesthesia/Blood Transfusion Reactions: No Reported Reaction Past Psychological History: No Psychological Hx Reported Smoking Status: Former smoker Past Alcohol Use History: None Reported Past Drug Use History: None Reported - Past Family History Family Family Medical History: No Reported History Medications and Allergies Home Medications Medication Instructions Recorded Confirmed Type Acetaminophen Tab [Tylenol] 500 mg PO TID@0800,1400,2000 10/24/20 07/02/21 History Albuterol Inhaler [Ventolin Hfa 1 puff INHALATION RT-Q4H PRN 10/24/20 07/02/21 History Inhaler] Allopurinol [Zyloprim] 100 mg PO BID 10/24/20 07/02/21 History Cholecalciferol [Vitamin D3 (25 25 mcg PO DAILY 10/24/20 07/02/21 History Mcg = 1000 Iu)] Cyanocobalamin [Vitamin B-12] 500 mcg PO DAILY 10/24/20 07/02/21 History Ferrous Gluconate 324 mg PO DAILY@1130 10/24/20 07/02/21 History Fluticasone/Vilanterol [Breo 1 puff INHALATION RT-DAILY 10/24/20 07/02/21 History Ellipta 100-25 Mcg Inhaler] Menthol-Zinc Oxide Oint 1 applic TOPICAL BID 10/24/20 07/02/21 History [Calmoseptine Oint] Metoprolol Succinate [Toprol XL] 12.5 mg PO DAILY@0600 10/24/20 07/02/21 History Midodrine HCl [ProAmatine] 10 mg PO AC-TID 10/24/20 07/02/21 History Omeprazole 20 mg PO DAILY 10/24/20 07/02/21 History Rosuvastatin [Crestor] 10 mg PO HS 10/24/20 07/02/21 History Albuterol Nebulized [Ventolin 2.5 mg INHALATION RT-TID 01/26/21 07/02/21 History Nebulized] Diclofenac Sodium Gel [Voltaren 4 gm TOPICAL QID 01/26/21 07/02/21 History Gel] Liquacel 30 ml PO BID 01/26/21 07/02/21 History Loperamide [Imodium] 2 - 4 mg PO QID PRN 01/26/21 07/02/21 History Furosemide [Lasix] 40 mg PO BID@0900,1600 #60 tab 01/29/21 07/02/21 Rx Amoxic-Pot Clav 500-125 mg 1 tab PO BID@0800,2000 07/02/21 07/02/21 History [Augmentin 500-125 mg] Hydrogel 1 applic TOPICAL DAILY@1200 07/02/21 07/02/21 History Lactose-Reduced Food [Boost] 1 can PO DAILY 07/02/21 07/02/21 History Levothyroxine Sodium [Synthroid] 12.5 mcg PO DAILY@1200 07/02/21 07/02/21 History Magnesium Hydroxide [Milk of 1,200 mg PO Q72H PRN 07/02/21 07/02/21 History Magnesia] Melatonin 10 mg PO HS 07/02/21 07/02/21 History Nystatin 100,000 Unit/gm Powd 1 applic TOPICAL BID 07/02/21 07/02/21 History [Mycostatin Powder] Spironolactone [Aldactone] 12.5 mg PO BID 07/02/21 07/02/21 History Temazepam 7.5 mg PO HS 07/02/21 07/02/21 History Allergies Allergy/AdvReac Type Severity Reaction Status Date / Time Penicillins Allergy Severe Anaphylaxis Verified 07/02/21 13:18 Physical Exam Vitals: Vital Signs Pulse Resp BP Pulse Ox 07/02/21 20:20 60 22 93/60 94 L 07/02/21 19:13 59 L 17 07/02/21 19:06 58 L 18 07/02/21 14:20 50 L 20 132/59 93 L 07/02/21 12:20 52 L 20 151/62 95 Intake and Output 07/02/21 07/02/21 07/02/21 06:59 14:59 22:59 Other: Weight 68.039 kg Results CBC & Chem 7: 07/02/21 13:05 07/02/21 14:14 Labs: Abnormal Lab Results - Last 24 Hours (Table) 07/02/21 07/02/21 07/02/21 Range/Units 13:05 13:05 14:14 WBC 12.5 H (3.8-10.6) k/uL RBC 3.10 L (4.30-5.90) m/uL Hgb 10.2 L (13.0-17.5) gm/dL Hct 31.9 L (39.0-53.0) % MCV 103.0 H (80.0-100.0) fL RDW 17.5 H (11.5-15.5) % Neutrophils # 10.3 H (1.3-7.7) k/uL Lymphocytes # 0.7 L (1.0-4.8) k/uL D-Dimer 0.75 H (<0.60) mg/L FEU BUN (9-20) mg/dL Creatinine (0.66-1.25) mg/dL Glucose (74-99) mg/dL Alkaline Phosphatase (38-126) U/L Troponin I 0.310 H* (0.000-0.034) ng/mL 07/02/21 07/02/21 Range/Units 14:14 17:36 WBC (3.8-10.6) k/uL RBC (4.30-5.90) m/uL Hgb (13.0-17.5) gm/dL Hct (39.0-53.0) % MCV (80.0-100.0) fL RDW (11.5-15.5) % Neutrophils # (1.3-7.7) k/uL Lymphocytes # (1.0-4.8) k/uL D-Dimer (<0.60) mg/L FEU BUN 105 H* (9-20) mg/dL Creatinine 2.64 H (0.66-1.25) mg/dL Glucose 116 H (74-99) mg/dL Alkaline Phosphatase 204 H (38-126) U/L Troponin I 0.259 H* (0.000-0.034) ng/mL
[2021-07-02] MEDS ORDERED: NON FORMULARY DRUG (Liquacel 30 ML) PO SCH (21:00)
[2021-07-02] MEDS: BUMETANIDE 10 MG in DEXTROSE 5% IN WATER 60 ML IV SCH ×2 (21:46)
[2021-07-02] MEDS: ACETAMINOPHEN TAB 500 MG TAB PO SCH (21:46)
[2021-07-02] MEDS: ATORVASTATIN 20 MG TAB PO SCH (21:47)
[2021-07-02] MEDS: allopurinoL 100 MG TAB PO SCH (21:47)
[2021-07-02] MEDS: MELATONIN 5 MG TABLET PO SCH (21:47)
[2021-07-02] MEDS ORDERED: FUROSEMIDE 10 MG/ML 4 ML VIAL IV SCH (22:00)
[2021-07-02] MEDS: NYSTATIN 100,000 UNIT/GM POWD 15 GM TOPICAL SCH (23:32)
[2021-07-02] MEDS: MENTHOL-ZINC OXIDE OINT 113 GM TUBE TOPICAL SCH (23:32)
[2021-07-02] MEDS: DICLOFENAC SODIUM GEL 100 GM TUBE TOPICAL SCH (23:32)
[2021-07-03] MEDS: DICLOFENAC SODIUM GEL 100 GM TUBE TOPICAL SCH ×5 (00:58→21:11)
[2021-07-03] MEDS: TEMAZEPAM 7.5 MG CAP PO SCH ×2 (00:59→21:10)
[2021-07-03] MEDS: METOPROLOL SUCCINATE (ER) 25 MG TAB.ER.24H PO SCH (06:33)
[2021-07-03] MEDS: ALBUTEROL NEBULIZED 2.5 MG/3 ML INHALATION SCH ×3 (07:26→19:54)
[2021-07-03] MEDS ORDERED: NON FORMULARY DRUG (Lactose-Reduced Food [Boost] 237 ML Ml) PO SCH (09:00)
--- NOTE | 2021-07-03 09:38 | P.CRDCN ---
History of Present Illness Consult date: 07/03/21 Consult reason: atrial fibrillation, congestive heart failure History of present illness: 89-year-old gentleman with history of permanent atrial fibrillation chronic diastolic heart failure severe aortic stenosis who currently lives at [facility] age is admitted to hospital with progressively worsening shortness of breath leg edema fatigue and tiredness consistent with a diagnosis of acute exacerbation of chronic diastolic heart failure. Patient has been unstable on his feet and has had falls. He is currently not on any anticoagulation and is not a candidate for the same. He opted not to undergo aortic valve replacement. Patient does not want to do measures 2 prolonged his life. He is on Bumex drip with some improvement in his symptoms. He is in mild respiratory distress at rest. I will continue the Bumex drip and hopefully convert him to oral Lasix and discharge him home tomorrow. He has severe prerenal is ischemia with the bun of 100. He denies chest pain. He denies syncope. There is no history of new focal neurological deficits. Patient had recent CVA and his physical activity is very limited still has impaired speech. I'm going to his hold the nasal O2 and see if he can do away with home O2 as patient has a tendency pressure drip on the cannula. EKG on this admission reveals atrial fibrillation nonspecific ST-T wave changes with controlled ventricular rate Constitutional: Denies chills. Denies fever. Eyes: Denies blurred vision. Denies pain. Ears, nose, mouth and throat: Denies headache. Denies sore throat. Cardiovascular: Denies chest pain. Significant for shortness of breath and bilateral leg edema Respiratory: Denies cough. Gastrointestinal: Denies abdominal pain. Denies diarrhea. Denies nausea. Denies vomiting. Musculoskeletal: Denies myalgias. Integumentary: Denies pruritus. Denies rash. Neurological: Denies numbness. Denies weakness. Psychiatric: Denies anxiety. Denies depression. Endocrine: Denies fatigue. Denies weight change. Genitourinary: Denies burning, hematuria, frequency of urination. Hematological: No anemia or excess bleeding. General: The patient is awake and alert, in no distress, and does not appear acutely ill. Skin: Skin is warm and dry and no rashes or lesions are noted. Eye: Pupils are equal, round and reactive to light, extra-ocular movements are intact; there is normal conjunctiva bilaterally. Ears, nose, mouth and throat: There are moist mucous membranes and no oral lesions. Neck: The neck is supple, there is no tenderness or JVD. Cardiovascular: Irregular. Grade 4 x 6 ejection systolic murmur in the aortic area, rub or gallop is appreciated. Respiratory: Lungs are clear to auscultation, respirations are non-labored, breath sounds are equal. Diminished air entry at the bases Gastrointestinal: Soft, non-distended, non-tender abdomen without masses or organomegaly noted. There is no rebound or guarding present. Bowel sounds are unremarkable. Back: There is no tenderness to palpation in the midline. There is no obvious deformity. Musculoskeletal: , no tenderness,. There is no calf tenderness or swelling. Extremities: Moderate bilateral leg edema Vascular: Femoral pulse is normal. Posterior tibial pulses are normal .Dorsalis pedis is palpable. Neurological: Speech impairment noted Psychiatric: Cooperative, . Assessment and plan: Acute exacerbation of chronic diastolic heart failure Permanent atrial fibrillation with controlled ventricular rate History of recurrent falls History of CVA Severe aortic stenosis Acute on chronic renal failure Patient opted not to undergo aortic valve replacement Continue Bumex drip Hopefully home over the next 24 hours Past Medical History Past Medical History: Cancer, Heart Failure, CVA/TIA, GERD/Reflux, Osteoarthritis (OA), Renal Disease Additional Past Medical History / Comment(s): insomnia, subarachnoid hemorrhage, hemiplegia and hemiparesis, dysphagia, gout, History of Any Multi-Drug Resistant Organisms: None Reported Past Surgical History: Unable to Obtain Past Anesthesia/Blood Transfusion Reactions: No Reported Reaction Past Psychological History: No Psychological Hx Reported Smoking Status: Former smoker Past Alcohol Use History: None Reported Past Drug Use History: None Reported - Past Family History Family Family Medical History: No Reported History Medications and Allergies Home Medications Medication Instructions Recorded Confirmed Type Acetaminophen Tab [Tylenol] 500 mg PO TID@0800,1400,199910/24/20 07/02/21 History Albuterol Inhaler [Ventolin Hfa 1 puff INHALATION RT-Q4H PRN 10/24/20 07/02/21 History Inhaler] Allopurinol [Zyloprim] 100 mg PO BID 10/24/20 07/02/21 History Cholecalciferol [Vitamin D3 (25 25 mcg PO DAILY 10/24/20 07/02/21 History Mcg = 1000 Iu)] Cyanocobalamin [Vitamin B-12] 500 mcg PO DAILY 10/24/20 07/02/21 History Ferrous Gluconate 324 mg PO DAILY@1130 10/24/20 07/02/21 History Fluticasone/Vilanterol [Breo 1 puff INHALATION RT-DAILY 10/24/20 07/02/21 Histor y Ellipta 100-25 Mcg Inhaler] Menthol-Zinc Oxide Oint 1 applic TOPICAL BID 10/24/20 07/02/21 History [Calmoseptine Oint] Metoprolol Succinate [Toprol XL] 12.5 mg PO DAILY@0600 10/24/20 07/02/21 History Midodrine HCl [ProAmatine] 10 mg PO AC-TID 10/24/20 07/02/21 History Omeprazole 20 mg PO DAILY 10/24/20 07/02/21 History Rosuvastatin [Crestor] 10 mg PO HS 10/24/20 07/02/21 History Albuterol Nebulized [Ventolin 2.5 mg INHALATION RT-TID 01/26/21 07/02/21 History Nebulized] Diclofenac Sodium Gel [Voltaren 4 gm TOPICAL QID 01/26/21 07/02/21 History Gel] Liquacel 30 ml PO BID 01/26/21 07/02/21 History Loperamide [Imodium] 2 - 4 mg PO QID PRN 01/26/21 07/02/21 History Furosemide [Lasix] 40 mg PO BID@0900,1600 #60 tab 01/29/21 07/02/21 Rx Amoxic-Pot Clav 500-125 mg 1 tab PO BID@0800,2000 07/02/21 07/02/21 History [Augmentin 500-125 mg] Hydrogel 1 applic TOPICAL DAILY@1200 07/02/21 07/02/21 History Lactose-Reduced Food [Boost] 1 can PO DAILY 07/02/21 07/02/21 History Levothyroxine Sodium [Synthroid] 12.5 mcg PO DAILY@1200 07/02/21 07/02/21 History Magnesium Hydroxide [Milk of 1,200 mg PO Q72H PRN 07/02/21 07/02/21 History Magnesia] Melatonin 10 mg PO HS 07/02/21 07/02/21 History Nystatin 100,000 Unit/gm Powd 1 applic TOPICAL BID 07/02/21 07/02/21 History [Mycostatin Powder] Spironolactone [Aldactone] 12.5 mg PO BID 07/02/21 07/02/21 History Temazepam 7.5 mg PO HS 07/02/21 07/02/21 History Allergies Allergy/AdvReac Type Severity Reaction Status Date / Time Penicillins Allergy Severe Anaphylaxis Verified 07/02/21 13:18 Physical Exam Vitals: Vital Signs Pulse Resp BP Pulse Ox 07/03/21 08:51 98 07/03/21 07:31 60 14 07/03/21 07:26 60 16 95 07/03/21 06:33 72 16 107/56 98 07/03/21 00:00 76 16 127/53 98 07/02/21 20:20 60 22 93/60 94 L 07/02/21 19:13 59 L 17 07/02/21 19:06 58 L 18 07/02/21 14:20 50 L 20 132/59 93 L 07/02/21 12:20 52 L 20 151/62 95 Intake and Output 07/02/21 07/03/21 07/03/21 22:59 06:59 14:59 Output Total 2300 Balance -2300 Output: Urine 2300 Results 07/02/21 13:05 07/02/21 14:14 Cardiac Enzymes 07/02/21 07/02/21 07/02/21 Range/Units 14:14 14:14 17:36 AST 54 (17-59) U/L Troponin I 0.310 H* 0.259 H* (0.000-0.034) ng/mL 07/02/21 Range/Units 19:36 AST (17-59) U/L Troponin I 0.245 H* (0.000-0.034) ng/mL Coagulation 07/02/21 Range/Units 13:05 PT 11.8 (9.0-12.0) sec APTT 26.4 (22.0-30.0) sec CBC 07/02/21 Range/Units 13:05 WBC 12.5 H (3.8-10.6) k/uL RBC 3.10 L (4.30-5.90) m/uL Hgb 10.2 L (13.0-17.5) gm/dL Hct 31.9 L (39.0-53.0) % Plt Count 171 (150-450) k/uL Comprehensive Metabolic Panel 07/02/21 Range/Units 14:14 Sodium 140 (137-145) mmol/L Potassium 4.3 (3.5-5.1) mmol/L Chloride 102 (98-107) mmol/L Carbon Dioxide 26 (22-30) mmol/L BUN 105 H* (9-20) mg/dL Creatinine 2.64 H (0.66-1.25) mg/dL Glucose 116 H (74-99) mg/dL Calcium 9.3 (8.4-10.2) mg/dL AST 54 (17-59) U/L ALT 30 (4-49) U/L Alkaline Phosphatase 204 H (38-126) U/L Total Protein 7.0 (6.3-8.2) g/dL Albumin 4.0 (3.5-5.0) g/dL Current Medications Generic Name Dose Route Start Last Admin Trade Name Freq PRN Reason Stop Dose Admin Acetaminophen 500 mg 07/02/21 20:00 07/02/21 21:46 Acetaminophen Tab 500 Mg Tab PO 500 mg TID@0800,1400,2000 [facility] Administration Acetaminophen 650 mg 07/02/21 20:22 Acetaminophen Tab 325 Mg Tab PO Q6HR PRN Mild Pain or Fever > 100.5 Albuterol Sulfate 2.5 mg 07/02/21 20:00 07/03/21 07:26 Albuterol Nebulized 2.5 Mg/3 Ml INHALATION 2.5 mg RT-TID [facility] Administration Allopurinol 100 mg 07/02/21 21:00 07/02/21 21:47 Allopurinol 100 Mg Tab PO 100 mg BID [facility] Administration Atorvastatin Calcium 20 mg 07/02/21 21:00 07/02/21 21:47 Atorvastatin 20 Mg Tab PO 20 mg HS [facility] Administration Calamine/Phenol 1 applic 07/02/21 21:00 07/02/21 23:32 Menthol-Zinc Oxide Oint 113 Gm Tube TOPICAL 1 applic BID [facility] Administration Protocol Calcium Carbonate/Glycine 1,000 mg 07/02/21 20:22 Calcium Carbonate 500 Mg Chewable PO Q4HR PRN Dyspepsia Cholecalciferol 25 mcg 07/03/21 09:00 Cholecalciferol 25 Mcg (1000 Iu) Tablet PO DAILY [facility] Cyanocobalamin 500 mcg 07/03/21 09:00 Cyanocobalamin 500 Mcg Tab PO DAILY [facility] Diclofenac Sodium 4 gm 07/02/21 18:00 07/03/21 00:58 Diclofenac Sodium Gel 100 Gm Tube TOPICAL Not Given QID [facility] Protocol Bumetanide 10 mg/ Dextrose/ 100 mls @ 5 mls/hr 07/02/21 20:45 07/02/21 21:46 Water IV 0.5 mg/hr .Q20H [facility] 5 mls/hr Administration 0.5 MG/HR Lactulose 20 gm 07/02/21 20:22 Lactulose 20 Gm/30 Ml Cup PO DAILY PRN Constipation Levothyroxine Sodium 12.5 mcg 07/03/21 12:00 Levothyroxine 25 Mcg Tab PO DAILY@1200 [facility] Melatonin 10 mg 07/02/21 21:00 07/02/21 21:47 Melatonin 5 Mg Tablet PO 10 mg HS [facility] Administration Metoprolol Succinate 12.5 mg 07/03/21 06:00 07/03/21 06:33 Metoprolol Succinate (Er) 25 Mg Tab.Er.24h PO 12.5 mg DAILY@0600 [facility] Administration Midodrine 5 mg 07/03/21 07:30 Midodrine 5 Mg Tab PO AC-TID [facility] Naloxone HCl 0.2 mg 07/02/21 20:22 Naloxone 0.4 Mg/Ml 1 Ml Vial IV Q2M PRN Opioid Reversal Nystatin 1 applic 07/02/21 21:00 07/02/21 23:32 Nystatin 100,000 Unit/Gm Powd 15 Gm TOPICAL 1 applic BID [facility] Administration Protocol Ondansetron HCl 4 mg 07/02/21 20:22 Ondansetron 4 Mg/2 Ml Vial IVP Q8HR PRN Nausea And Vomiting Pantoprazole Sodium 40 mg 07/03/21 07:30 Pantoprazole 40 Mg Tablet PO AC-BRKFST [facility] Temazepam 7.5 mg 07/02/21 21:00 07/03/21 00:59 Temazepam 7.5 Mg Cap PO Not Given HS [facility] Intake and Output 07/02/21 07/03/21 07/03/21 22:59 06:59 14:59 Output Total 2300 Balance -2300 Output: Urine 2300 07/02/21 13:05 07/02/21 14:14
[2021-07-03] MEDS: allopurinoL 100 MG TAB PO SCH ×2 (09:56→21:10)
[2021-07-03] MEDS: CHOLECALCIFEROL 25 MCG (1000 IU) TABLET PO SCH (09:57)
[2021-07-03] MEDS: PANTOPRAZOLE 40 MG TABLET PO SCH (09:57)
[2021-07-03] MEDS: MIDODRINE 5 MG TAB PO SCH ×3 (09:57→17:07)
[2021-07-03] MEDS: ACETAMINOPHEN TAB 500 MG TAB PO SCH ×3 (09:57→21:10)
[2021-07-03] MEDS: CYANOCOBALAMIN 500 MCG TAB PO SCH (09:57)
[2021-07-03] MEDS: NYSTATIN 100,000 UNIT/GM POWD 15 GM TOPICAL SCH ×2 (09:57→21:11)
[2021-07-03] MEDS: MENTHOL-ZINC OXIDE OINT 113 GM TUBE TOPICAL SCH ×2 (09:58→21:11)
[2021-07-03] MEDS ORDERED: LEVOTHYROXINE 25 MCG TAB PO SCH (12:00)
--- NOTE | 2021-07-03 12:06 | P.GSCN ---
History of Present Illness Consult date: 07/03/21 History of present illness: CHIEF COMPLAINT: Fall HISTORY OF PRESENT ILLNESS: This is a 89-year-old male who presented to the hospital after a trip and fall over his oxygen cord. Patient reports that he was trying to get out of bed and tripped over the oxygen cord falling and hitting the front of his head. Patient also reports that his been having falls. He denies any loss of consciousness. Denies any nausea or vomiting. Denies any vision changes denies any abdominal pain. Also reported some shortness of breath their concerns for CHF exacerbation. Cardiology is on consult. Computed tomography scan of the brain completed that showed a anterior right frontal scalp contusion versus a trace subarachnoid hemorrhage. Additional trace 1.5 mm thick acute subdural hematoma along the mid falx. Patient sitting up at bedside chair. He does have some slurring of speech and difficulty with word finding. He reports that this is not new. That he's had these issues since his stroke. Patient denies any abdominal pain. Denies being on any blood thinners. PAST MEDICAL HISTORY: Heart failure, severe aortic stenosis, CVA, GERD, osteoarthritis, renal disease, subarachnoid hemorrhage, dysphagia PAST SURGICAL HISTORY: See list. MEDICATIONS: See list. ALLERGIES: See list. SOCIAL HISTORY: No illicit drug use. REVIEW OF SYSTEMS: CONSTITUTIONAL: Denies fever or chills. HEENT: Denies blurred vision, vision changes, or eye pain. Denies hemoptysis CARDIOVASCULAR: Denies chest pain or pressure. RESPIRATORY: No shortness of breath. GASTROINTESTINAL: See HPI for pertinent findings HEMATOLOGIC: Denies bleeding disorders. GENITOURINARY: Denies any blood in urine or increased urinary frequency. SKIN: Denies pruitis. Denies rash. PHYSICAL EXAM: VITAL SIGNS: Reviewed GENERAL: Well-developed in no acute distress. HEENT: No sclera icterus. Extraocular movements grossly intact. Moist buccal mucosa. Head right frontal scalp abrasion, normocephalic. No nasal drainage. Pupils are equal round and reactive ABDOMEN: Soft. Nondistended. Nondistended NEUROLOGIC: Patient is awake and alert. Orientated 2 he knows his name and place. Difficulty with a year. Is able to state his birthday. Extremities some scabbing noted along the knees and lower extremity edema LABORATORY DATA: WBC 12.5 hemoglobin 10.2 platelets 171 INR 1.1 D-dimer 0.75 Sodium 140 potassium 4.3 creatinine 2.64 Troponins elevated LFTs normal BNP elevated IMAGING: Computed tomography scan of brain cervical spine showing anterior right frontal scalp contusion. There are punctate 3-4 mm cortical contusion versus trace subarachnoid blood with one focus on either side. Additional trace 1.5 mm thick acute subdural hematoma along the mid falx. Mild cerebral atrophy. Mild ventricle megaly probably due to central cerebral atrophy. Some encephalomalacia left frontal parietal junction and right occipital lobe related to prior vascular somatic insults. Moderate to advanced spondylitic changes especially mid to lower cervical spine. Degenerative grade 1 spinal listhesis C6 to C7 and C7 to T1. No acute fracture of the cervical spine ASSESSMENT: 1. Fall with head trauma 2. Anterior right frontal scalp contusion 3. 3-4 mm cortical contusion versus trace subarachnoid hemorrhage 4. Trace 1.5 mm thick acute subdural hematoma along the mid falx 5. Acute CHF exacerbation PLAN: -Continue supportive care -Agree with neuro consults -No surgical intervention planned -Continue regular diet -CHF treatment per cardiology and medicine service Thank you for this consultation Physician Pai Gow Manager note has been reviewed by physician. Signing provider agrees with the documented findings, assessment, and plan of care. Past Medical History Past Medical History: Cancer, Heart Failure, CVA/TIA, GERD/Reflux, Osteoarthr itis (OA), Renal Disease Additional Past Medical History / Comment(s): insomnia, subarachnoid hemorrhage, hemiplegia and hemiparesis, dysphagia, gout, History of Any Multi-Drug Resistant Organisms: None Reported Past Surgical History: Unable to Obtain Past Anesthesia/Blood Transfusion Reactions: No Reported Reaction Past Psychological History: No Psychological Hx Reported Smoking Status: Former smoker Past Alcohol Use History: None Reported Past Drug Use History: None Reported - Past Family History Family Family Medical History: No Reported History Medications and Allergies Home Medications Medication Instructions Recorded Confirmed Type Acetaminophen Tab [Tylenol] 500 mg PO TID@0800,1400,2000 10/24/20 07/02/21 History Albuterol Inhaler [Ventolin Hfa 1 puff INHALATION RT-Q4H PRN 10/24/20 07/02/21 History Inhaler] Allopurinol [Zyloprim] 100 mg PO BID 10/24/20 07/02/21 History Cholecalciferol [Vitamin D3 (25 25 mcg PO DAILY 10/24/20 07/02/21 History Mcg = 1000 Iu)] Cyanocobalamin [Vitamin B-12] 500 mcg PO DAILY 10/24/20 07/02/21 History Ferrous Gluconate 324 mg PO DAILY@1130 10/24/20 07/02/21 History Fluticasone/Vilanterol [Breo 1 puff INHALATION RT-DAILY 10/24/20 07/02/21 History Ellipta 100-25 Mcg Inhaler] Menthol-Zinc Oxide Oint 1 applic TOPICAL BID 10/24/20 07/02/21 History [Calmoseptine Oint] Metoprolol Succinate [Toprol XL] 12.5 mg PO DAILY@0600 10/24/20 07/02/21 History Midodrine HCl [ProAmatine] 10 mg PO AC-TID 10/24/20 07/02/21 History Omeprazole 20 mg PO DAILY 10/24/20 07/02/21 History Rosuvastatin [Crestor] 10 mg PO HS 10/24/20 07/02/21 History Albuterol Nebulized [Ventolin 2.5 mg INHALATION RT-TID 01/26/21 07/02/21 History Nebulized] Diclofenac Sodium Gel [Voltaren 4 gm TOPICAL QID 01/26/21 07/02/21 History Gel] Liquacel 30 ml PO BID 01/26/21 07/02/21 History Loperamide [Imodium] 2 - 4 mg PO QID PRN 01/26/21 07/02/21 History Furosemide [Lasix] 40 mg PO BID@0900,1600 #60 tab 01/29/21 07/02/21 Rx Amoxic-Pot Clav 500-125 mg 1 tab PO BID@0800,2000 07/02/21 07/02/21 History [Augmentin 500-125 mg] Hydrogel 1 applic TOPICAL DAILY@1200 07/02/21 07/02/21 History Lactose-Reduced Food [Boost] 1 can PO DAILY 07/02/21 07/02/21 History Levothyroxine Sodium [Synthroid] 12.5 mcg PO DAILY@1200 07/02/21 07/02/21 History Magnesium Hydroxide [Milk of 1,200 mg PO Q72H PRN 07/02/21 07/02/21 History Magnesia] Melatonin 10 mg PO HS 07/02/21 07/02/21 History Nystatin 100,000 Unit/gm Powd 1 applic TOPICAL BID 07/02/21 07/02/21 History [Mycostatin Powder] Spironolactone [Aldactone] 12.5 mg PO BID 07/02/21 07/02/21 History Temazepam 7.5 mg PO HS 07/02/21 07/02/21 History Allergies Allergy/AdvReac Type Severity Reaction Status Date / Time Penicillins Allergy Severe Anaphylaxis Verified 07/02/21 13:18 Surgical - Exam Vital Signs Pulse Resp BP Pulse Ox 52 L 20 151/62 95 07/02/21 12:20 07/02/21 12:20 07/02/21 12:20 07/02/21 12:20 Results - Labs 07/02/21 13:05 07/02/21 14:14 Abnormal Lab Results - Last 24 Hours (Table) 07/02/21 07/02/21 07/02/21 Range/Units 13:05 13:05 14:14 WBC 12.5 H (3.8-10.6) k/uL RBC 3.10 L (4.30-5.90) m/uL Hgb 10.2 L (13.0-17.5) gm/dL Hct 31.9 L (39.0-53.0) % MCV 103.0 H (80.0-100.0) fL RDW 17.5 H (11.5-15.5) % Neutrophils # 10.3 H (1.3-7.7) k/uL Lymphocytes # 0.7 L (1.0-4.8) k/uL D-Dimer 0.75 H (<0.60) mg/L FEU BUN (9-20) mg/dL Creatinine (0.66-1.25) mg/dL Glucose (74-99) mg/dL Alkaline Phosphatase (38-126) U/L Troponin I 0.310 H* (0.000-0.034) ng/mL 07/02/21 07/02/21 07/02/21 Range/Units 14:14 17:36 19:36 WBC (3.8-10.6) k/uL RBC (4.30-5.90) m/uL Hgb (13.0-17.5) gm/dL Hct (39.0-53.0) % MCV (80.0-100.0) fL RDW (11.5-15.5) % Neutrophils # (1.3-7.7) k/uL Lymphocytes # (1.0-4.8) k/uL D-Dimer (<0.60) mg/L FEU BUN 105 H* (9-20) mg/dL Creatinine 2.64 H (0.66-1.25) mg/dL Glucose 116 H (74-99) mg/dL Alkaline Phosphatase 204 H (38-126) U/L Troponin I 0.259 H* 0.245 H* (0.000-0.034) ng/mL Diabetes panel 07/02/21 Range/Units 14:14 Sodium 140 (137-145) mmol/L Potassium 4.3 (3.5-5.1) mmol/L Chloride 102 (98-107) mmol/L Carbon Dioxide 26 (22-30) mmol/L BUN 105 H* (9-20) mg/dL Creatinine 2.64 H (0.66-1.25) mg/dL Glucose 116 H (74-99) mg/dL Calcium 9.3 (8.4-10.2) mg/dL AST 54 (17-59) U/L ALT 30 (4-49) U/L Alkaline Phosphatase 204 H (38-126) U/L Total Protein 7.0 (6.3-8.2) g/dL Albumin 4.0 (3.5-5.0) g/dL Calcium panel 07/02/21 Range/Units 14:14 Calcium 9.3 (8.4-10.2) mg/dL Albumin 4.0 (3.5-5.0) g/dL Pituitary panel 07/02/21 Range/Units 14:14 Sodium 140 (137-145) mmol/L Potassium 4.3 (3.5-5.1) mmol/L Chloride 102 (98-107) mmol/L Carbon Dioxide 26 (22-30) mmol/L BUN 105 H* (9-20) mg/dL Creatinine 2.64 H (0.66-1.25) mg/dL Glucose 116 H (74-99) mg/dL Calcium 9.3 (8.4-10.2) mg/dL Adrenal panel 07/02/21 Range/Units 14:14 Sodium 140 (137-145) mmol/L Potassium 4.3 (3.5-5.1) mmol/L Chloride 102 (98-107) mmol/L Carbon Dioxide 26 (22-30) mmol/L BUN 105 H* (9-20) mg/dL Creatinine 2.64 H (0.66-1.25) mg/dL Glucose 116 H (74-99) mg/dL Calcium 9.3 (8.4-10.2) mg/dL Total Bilirubin 1.2 (0.2-1.3) mg/dL AST 54 (17-59) U/L ALT 30 (4-49) U/L Alkaline Phosphatase 204 H (38-126) U/L Total Protein 7.0 (6.3-8.2) g/dL Albumin 4.0 (3.5-5.0) g/dL
[2021-07-03 12:08] LABS: Calcium 9.4 mg/dL (8.4-10.2)
--- NOTE | 2021-07-03 14:52 | P.PN ---
Progress Note - Text Progress Note Date: 07/03/21 Chief Complaint: Short of breath History of presenting complaint: A pleasant 89-year-old patient, of Dr. Rollins whose chronic stable medical conditions include GERD, primary osteoarthritis, hyperlipidemia, chronic insomnia, COPD ( previous smoker), chronic gout, and DO NOT RESUSCITATE, moderate size hiatal hernia, CK D stage III, CHF EF 45%. EGD: Moderate size hiatal hernia with John on lesions. Causing recurrent GI bleed. Patient lives in the assisted living. Patient for last few days has been getting increasingly short of breath. Has been on Lasix. Told to increase his water intake by his family doctor. Increasing swelling of lower extremity. Today he got entangled in his oxygen cord and fell forwards hitting his head. Computed tomography scan of the head showed punctate 3-4 mm cortical contusion versus a subarachnoid blood with one focus on either side. 1.5 mm thick acute subdural hematoma along the mid falx. Evidence of encephalomalacia in the left frontoparietal junction and right occipital lobe. Spondylitic changes in the cervical spine. ER physician Dr. De La Garza spoke to patient's nephew Dr. bernal and given patient's age and comorbidities it was decided to manage patient conservatively. Admitted with CHF exacerbation and cardiorenal syndrome. With acute kidney injury. Patient started on Bumex drip. July 03: Responding well to Bumex drip." 3 L in negative fluid balance. Shortness of breath or bit better. Patient eats a meal. Sitting up in a recliner. Patient is very keen to go home. Seen by cardiology. Active Medications Acetaminophen (Acetaminophen Tab 500 Mg Tab) 500 mg PO TID@0800,1400,1999 [facility] Last Admin: 07/03/21 14:39 Dose: 500 mg Documented by: Acetaminophen (Acetaminophen Tab 325 Mg Tab) 650 mg PO Q6HR PRN PRN Reason: Mild Pain or Fever > 100.5 Albuterol Sulfate (Albuterol Nebulized 2.5 Mg/3 Ml) 2.5 mg INHALATION RT-TID [facility] Last Admin: 07/03/21 10:48 Dose: 2.5 mg Documented by: Allopurinol (Allopurinol 100 Mg Tab) 100 mg PO BID [facility] Last Admin: 07/03/21 09:56 Dose: 100 mg Documented by: Atorvastatin Calcium (Atorvastatin 20 Mg Tab) 20 mg PO HS [facility] Last Admin: 07/02/21 21:47 Dose: 20 mg Documented by: Calamine/Phenol (Menthol-Zinc Oxide Oint 113 Gm Tube) 1 applic TOPICAL BID [facility]; Protocol Last Admin: 07/03/21 09:58 Dose: 1 applic Documented by: Calcium Carbonate/Glycine (Calcium Carbonate 500 Mg Chewable) 1,000 mg PO Q4HR PRN PRN Reason: Dyspepsia Cholecalciferol (Cholecalciferol 25 Mcg (1000 Iu) Tablet) 25 mcg PO DAILY [facility] Last Admin: 07/03/21 09:57 Dose: 25 mcg Documented by: Cyanocobalamin (Cyanocobalamin 500 Mcg Tab) 500 mcg PO DAILY [facility] Last Admin: 07/03/21 09:57 Dose: 500 mcg Documented by: Diclofenac Sodium (Diclofenac Sodium Gel 100 Gm Tube) 4 gm TOPICAL QID [facility]; Protocol Last Admin: 07/03/21 14:39 Dose: 4 gm Documented by: Bumetanide 10 mg/ Dextrose/ (Water) 100 mls @ 5 mls/hr IV .Q20H [facility] Last Admin: 07/02/21 21:46 Dose: 0.5 mg/hr, 5 mls/hr Documented by: Lactulose (Lactulose 20 Gm/30 Ml Cup) 20 gm PO DAILY PRN PRN Reason: Constipation Levothyroxine Sodium (Levothyroxine 25 Mcg Tab) 12.5 mcg PO DAILY@1200 [facility] Last Admin: 07/03/21 12:08 Dose: 12.5 mcg Documented by: Melatonin (Melatonin 5 Mg Tablet) 10 mg PO [facility] Last Admin: 07/02/21 21:47 Dose: 10 mg Documented by: Metoprolol Succinate (Metoprolol Succinate (Er) 25 Mg Tab.Er.24h) 12.5 mg PO DAILY@0600 [facility] Last Admin: 07/03/21 06:33 Dose: 12.5 mg Documented by: Midodrine (Midodrine 5 Mg Tab) 5 mg PO AC-TID [facility] Last Admin: 07/03/21 12:08 Dose: 5 mg Documented by: Naloxone HCl (Naloxone 0.4 Mg/Ml 1 Ml Vial) 0.2 mg IV Q2M PRN PRN Reason: Opioid Reversal Nystatin (Nystatin 100,000 Unit/Gm Powd 15 Gm) 1 applic TOPICAL BID [facility]; Protocol Last Admin: 07/03/21 09:57 Dose: 1 applic Documented by: Ondansetron HCl (Ondansetron 4 Mg/2 Ml Vial) 4 mg IVP Q8HR PRN PRN Reason: Nausea And Vomiting Pantoprazole Sodium (Pantoprazole 40 Mg Tablet) 40 mg PO AC-BRKFST [facility] Last Admin: 07/03/21 09:57 Dose: 40 mg Documented by: Temazepam (Temazepam 7.5 Mg Cap) 7.5 mg PO [facility] Last Admin: 07/03/21 00:59 Dose: Not Given Documented by: Past medical history to include: john Erosions in the Stomach, Moderate Hiatal Hernia, Congestive Heart Failure with EF of 45%, GERD, Osteoarthritis, Hyperlipidemia, Insomnia, COPD, Gout, Chronic Kidney Disease Stage III, DO NOT RESUSCITATE Social History: Over a Year Ago Patient Was Smoking 2 Small Cigars a Day. Retired. Lives at [facility]. Family history: Reviewed, noncontributory to presentation Physical examination: VITAL SIGNS: 64, 20, 120/60, 93% room air GENERAL: BMI 28.3, reclining in chair awake, some short of breath. EYES: Pupils equal. Conjunctiva normal. HEENT: External appearance of nose and ears normal, oral cavity grossly normal. Bruising over the right side of the scalp or anteriorly NECK: JVD possibly raised; masses not palpable. HEART: First and second heart sounds are normal; edema present. LUNGS: Respiratory rate increased; right basal crackles. ABDOMEN: Soft, some distention nontender, liver spleen not palpable, no masses palpable. PSYCH: Alert and oriented x3; mood and affect normall. MUSCULOSKELETAL:No Clubbing/cyanosis;muscles-grossly intact. Evidence of OA EXTREMITIES: Stockings over the lower extremity NEUROLOGICAL: Cranial nerves grossly intact; no facial asymmetry, power and sensation grossly intact. LYMPHATICS: No lymph nodes palpable in the axilla and neck INVESTIGATIONS, reviewed in the clinical context: July 03: Potassium 4. 101 and creatinine 2.55 White count 12.5 hemoglobin 10.2 platelets 171 sodium 140 potassium 4.3 BUN 105 creatinine 2.64 Troponin I 0.310 0.259 EKG tracing personally reviewed by me-atrial fibrillation. Rate 54 Renal ultrasound: Right kidney small in size. 2-D echocardiogram: Moderate concentric LVH. EF 50-55%. Severe aortic stenosis. Moderate pulmonary hypertension some mitral and tricuspid regurgitation. Chest x-ray film personally reviewed by me-pulmonary edema, kyphosis Assessment and plan: -Acute on chronic congestive heart failure exacerbation from systolic/diastolic dysfunction EF 45%: From aortic stenosis: Slow to respond Continue Bumex drip 0.5 mg an hour. Strict I's and O's. -Severe aortic stenosis Follow clinically -Acute on chronic kidney disease likely ATN/ cardiorenal syndrome.: Slow to respond Expect some response to diuresis. 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 -Hyperlipidemia Lipitor 20 mg daily at bedtime -Chronic insomnia for multiple medical problems Melatonin 6 mg daily at bedtime -COPD in a previous smoker DuoNeb 3 times a day -Chronic kidney disease stage III likely nephrosclerosis atrophic right kidney Follow renal function -Iron deficiency anemia, and anemia of chronic kidney disease Ferrous sulfate -Acute on chronic medical debility -Troponin leak in the setting of acute on chronic kidney disease, no clinical evidence of acute coronary syndrome. -DO NOT RESUSCITATE Continue Bumex drip 0.5 mg an hour. Strict I's and O's. Discussed with patient. She is very keen to return was placed tomorrow. Repeat labs.
[2021-07-03] MEDS: BUMETANIDE 10 MG in DEXTROSE 5% IN WATER 60 ML IV SCH ×2 (15:35)
[2021-07-03] MEDS: MELATONIN 5 MG TABLET PO SCH (21:10)
[2021-07-03] MEDS: ATORVASTATIN 20 MG TAB PO SCH (21:10)
--- NOTE | 2021-07-03 23:03 | P.CNNES ---
History of Present Illness Consult date: 07/03/21 Requesting physician: Yaya De La Garza Reason for Consult: subarachnoid brain bleed History of Present Illness: Patient is a 89-year-old male came to the hospital by ambulance yesterday at 12:08 PM. As per EMS flow sheet, when they arrived, found patient in care of staff at [facility] in his chair with a towel on his head. Patient had mentioned that he tripped over his oxygen tubing while trying to get around his apartment. Patient mentioned that he fell forward hitting his head on the floor, patient got up on his own and grabbed a wet towel and sat down in his chair. Patient had hematoma about 2 inches with abrasion noted right frontal region. No loss of consciousness and he was oriented 4. Patient was complaining of site pain. Patient's vitals were 135/50 they persisted 56 respiration 14 saturation 96%. Patient told me that he was laying in the bed, set up on the side of the bed, and then tried to get up, fell forwards, from sitting height. Patient concurred that he did not pass out. No headaches, no numbness or tingling. Patient states that he had history of a stroke about a year ago, affecting his right side, but not sure of the symptoms of his previous stroke. He is not on any blood thinners. Patient's blood tests showed WBC 12.5 hemoglobin 10.2, elevated MCV 103. Platelets 171. PT/PTT normal, electrolytes are normal, BUN 105, creatinine 2.64. This is acute on chronic renal insufficiency. Hepatic panel is normal, troponin is mildly elevated 0.310. CT head revealed anterior right frontal scalp contusion. He did punctate T2 4 millimeter cortical contusion versus trace subarachnoid blood with one focus on either side. Additional trace 1.5 mm thick acute subdural hematoma along the mid Falx. No mass effect or midline shift. Mild cerebral atrophy, mild ventriculomegaly probably due to central cerebral atrophy. Some encephalomalacia left frontal parietal junction and right occipital lobe relating to prior vascular or traumatic insults. Moderate to advanced spondylotic changes especially mid to lower cervical spine. Degenerative grade 1 spondylolisthesis C6 7 and C7-T1. No acute fracture of the cervical spine. Patient takes B12 500 g orally daily, ferrous sulfate, Crestor, midodrine 10 mg 3 times a day metoprolol 12.5 mg daily, spironolactone, temazepam 7.5 mg at bedtime, melatonin. 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 Review of Systems Patient has difficulty breathing. Denies any chest pain or abdominal pain. No headache. No numbness or tingling. All other 14 point review of systems reviewed and unremarkable. He does have balance issues. Patient does have depression. He has no family left. He never got . Past Medical History Past Medical History: Cancer, Heart Failure, CVA/TIA, GERD/Reflux, Osteoarthritis (OA), Renal Disease Additional Past Medical History / Comment(s): insomnia, subarachnoid hemorrhage, hemiplegia and hemiparesis, dysphagia, gout, History of Any Multi-Drug Resistant Organisms: None Reported Past Surgical History: Unable to Obtain Past Anesthesia/Blood Transfusion Reactions: No Reported Reaction Past Psychological History: No Psychological Hx Reported Smoking Status: Former smoker Past Alcohol Use History: None Reported Past Drug Use History: None Reported - Past Family History Family Family Medical History: No Reported History Medications and Allergies Home Medications Medication Instructions Recorded Confirmed Type Acetaminophen Tab [Tylenol] 500 mg PO TID@0800,1400,2000 10/24/20 07/02/21 History Albuterol Inhaler [Ventolin Hfa 1 puff INHALATION RT-Q4H PRN 10/24/20 07/02/21 History Inhaler] Allopurinol [Zyloprim] 100 mg PO BID 10/24/20 07/02/21 History Cholecalciferol [Vitamin D3 (25 25 mcg PO DAILY 10/24/20 07/02/21 History Mcg = 1000 Iu)] Cyanocobalamin [Vitamin B-12] 500 mcg PO DAILY 10/24/20 07/02/21 History Ferrous Gluconate 324 mg PO DAILY@1130 10/24/20 07/02/21 History Fluticasone/Vilanterol [Breo 1 puff INHALATION RT-DAILY 10/24/20 07/02/21 History Ellipta 100-25 Mcg Inhaler] Menthol-Zinc Oxide Oint 1 applic TOPICAL BID 10/24/20 07/02/21 History [Calmoseptine Oint] Metoprolol Succinate [Toprol XL] 12.5 mg PO DAILY@0600 10/24/20 07/02/21 History Midodrine HCl [ProAmatine] 10 mg PO AC-TID 10/24/20 07/02/21 History Omeprazole 20 mg PO DAILY 10/24/20 07/02/21 History Rosuvastatin [Crestor] 10 mg PO HS 10/24/20 07/02/21 History Albuterol Nebulized [Ventolin 2.5 mg INHALATION RT-TID 01/26/21 07/02/21 History Nebulized] Diclofenac Sodium Gel [Voltaren 4 gm TOPICAL QID 01/26/21 07/02/21 History Gel] Liquacel 30 ml PO BID 01/26/21 07/02/21 History Loperamide [Imodium] 2 - 4 mg PO QID PRN 01/26/21 07/02/21 History Furosemide [Lasix] 40 mg PO BID@0900,1600 #60 tab 01/29/21 07/02/21 Rx Amoxic-Pot Clav 500-125 mg 1 tab PO BID@0800,2000 07/02/21 07/02/21 History [Augmentin 500-125 mg] Hydrogel 1 applic TOPICAL DAILY@1200 07/02/21 07/02/21 History Lactose-Reduced Food [Boost] 1 can PO DAILY 07/02/21 07/02/21 History Levothyroxine Sodium [Synthroid] 12.5 mcg PO DAILY@1200 07/02/21 07/02/21 History Magnesium Hydroxide [Milk of 1,200 mg PO Q72H PRN 07/02/21 07/02/21 History Magnesia] Melatonin 10 mg PO HS 07/02/21 07/02/21 History Nystatin 100,000 Unit/gm Powd 1 applic TOPICAL BID 07/02/21 07/02/21 History [Mycostatin Powder] Spironolactone [Aldactone] 12.5 mg PO BID 07/02/21 07/02/21 History Temazepam 7.5 mg PO HS 07/02/21 07/02/21 History Allergies Allergy/AdvReac Type Severity Reaction Status Date / Time Penicillins Allergy Severe Anaphylaxis Verified 07/02/21 13:18 Physical Examination - Vital Signs Vital Signs: Vital Signs Pulse Resp BP Pulse Ox 07/03/21 10:48 63 18 07/03/21 10:00 64 20 120/60 93 L 07/03/21 08:51 98 07/03/21 07:31 60 14 03/09/22 07:26 60 16 95 07/03/21 06:33 72 16 107/56 98 07/03/21 00:00 76 16 127/53 98 07/02/21 20:20 60 22 93/60 94 L 07/02/21 19:13 59 L 17 07/02/21 19:06 58 L 18 07/02/21 14:20 50 L 20 132/59 93 L 07/02/21 12:20 52 L 20 151/62 95 Intake and Output 07/02/21 07/03/21 07/03/21 22:59 06:59 14:59 Intake Total 100 Output Total 2300 900 Balance -2300 -800 Intake: Oral 100 Output: Urine 2300 900 Patient is an elderly male, very pleasant, patient is in mild-to- moderate respiratory distress with difficulty in breathing. Patient is using oxygen via nasal cannula. Patient is alert awake oriented to time place and person. Speech and language functions are normal. Attention, concentration and fund of knowledge is adequate for his age. Detail testing deferred. On cranial examination, pupils are equal, round and reacting to light, visual stephenson are full on confrontation, no neglect. His extraocular muscles are intact with no nystagmus. Patient has slight flattening of the right nasolabial fold, which appears probably chronic. Active testing of facial muscles was symmetric. His tongue protrudes to the midline. Palatal elevation and sensation normal, hearing is mild to moderately decreased and shoulder shrug normal, facial sensation normal. Shoulder shrug normal. On muscle strength testing, there is no pronator drift and the strength is no rmal in arms and legs distally and proximally. Deep tendon reflexes are 1 in the upper limbs, 2 in the lower limbs and plantars are downgoing bilaterally Sensory to touch is equal with no neglect. Cerebellar function showed no ataxia for [id number] testing, although patient is tremulous. Tone and bulk of muscles normal. Gait not checked. On general examination, there is no carotid bruit or murmur, S1-S2 audible. Abdomen is soft nontender. Chest is clear. Patient has peripheral edema. Results - Laboratory Findings CBC and BMP: 07/02/21 13:05 07/03/21 11:36 Abnormal Lab Findings: Abnormal Labs 07/02/21 07/02/21 07/02/21 13:05 13:05 14:14 WBC 12.5 H RBC 3.10 L Hgb 10.2 L Hct 31.9 L MCV 103.0 H RDW 17.5 H Neutrophils # 10.3 H Lymphocytes # 0.7 L D-Dimer 0.75 H BUN Creatinine Glucose Alkaline Phosphatase Troponin I 0.310 H* 07/02/21 07/02/21 07/02/21 14:14 17:36 19:36 WBC RBC Hgb Hct MCV RDW Neutrophils # Lymphocytes # D-Dimer BUN 105 H* Creatinine 2.64 H Glucose 116 H Alkaline Phosphatase 204 H Troponin I 0.259 H* 0.245 H* Assessment and Plan Assessment: * Status post fall from sitting height due to tripping over the oxygen cord. No loss of consciousness. Computed tomography scan showed questionable small areas of subarachnoid hemorrhage. * COPD * CHF * Osteoarthritis * Reported history of previous stroke. No obvious deficits noted. Plan: * Repeat computed tomography scan of head in morning. If the CT head is stable, then patient will be clear for discharge. Patient is adamant to go home tomorrow as well. * No antiplatelet medications or anticoagulants. * Neurology will follow. Thank you for the consult
[2021-07-04 04:31] VITALS: TEMP 97.4
[2021-07-04] MEDS: BUMETANIDE 10 MG in DEXTROSE 5% IN WATER 60 ML IV SCH ×2 (06:27)
[2021-07-04] MEDS: MIDODRINE 5 MG TAB PO SCH (06:28)
[2021-07-04] MEDS: PANTOPRAZOLE 40 MG TABLET PO SCH (06:30)
[2021-07-04] MEDS: METOPROLOL SUCCINATE (ER) 25 MG TAB.ER.24H PO SCH (06:30)
[2021-07-04 07:10] LABS: Calcium 9.6 mg/dL (8.4-10.2); Potassium 3.7 mmol/L (3.5-5.1)
[2021-07-04] MEDS: ALBUTEROL NEBULIZED 2.5 MG/3 ML INHALATION SCH ×2 (08:00→11:36)
--- NOTE | 2021-07-04 08:21 | CT ---
EXAMINATION TYPE: CT brain wo con DATE OF EXAM: 07/04/2021 COMPARISON: CT dated 07/02/2021 HISTORY: F/u Subarachnoid hemorrhage CT DLP: 1099.4 mGycm Automated exposure control for dose reduction was used. TECHNIQUE: CT scan of the brain is performed without IV contrast administration. FINDINGS: Stable subtle hyperdensity along the posterior aspect of the left sylvian fissure which could represe nt stable minimal subarachnoid blood versus calcification. The previously described right frontal con vexity cortical hyperdensity/minimal subarachnoid blood is not appreciated today. Minimal hyperdensit y along the posterior aspect of the falx and adjacent frontal cortex, possibly representing minimal s ubarachnoid blood versus calcification without interval progression. Otherwise no acute intracranial hemorrhage or gross acute cortical infarct. Brain volume loss changes , scattered chronic infarcts and arterial atherosclerotic calcifications, unchanged. No midline shift or herniation. Unremarkable basal cisterns, sella and CP angles. No gross space-occupying lesion, va sogenic edema or mass effect. No gross orbital abnormality. Smaller right frontal scalp swelling/hematoma. Clear visualized paranas al sinuses and mastoid cells. No definite acute calvarial bone fracture identified. IMPRESSION: The previously described right frontal convexity subarachnoid blood is not appreciated today. The oth er tiny hyperdensities in the left sylvian fissure and along the falx are stable, possibly representi ng minimal blood versus calcification. No acute intracranial hemorrhage identified otherwise. No othe r intracranial posttraumatic sequela or mass effect. Incidental findings as described above.
[2021-07-04] MEDS: CYANOCOBALAMIN 500 MCG TAB PO SCH (08:23)
[2021-07-04] MEDS: ACETAMINOPHEN TAB 500 MG TAB PO SCH (08:23)
[2021-07-04] MEDS: CHOLECALCIFEROL 25 MCG (1000 IU) TABLET PO SCH (08:23)
[2021-07-04] MEDS: allopurinoL 100 MG TAB PO SCH (08:23)
[2021-07-04 08:27] VITALS: RESP 16
--- NOTE | 2021-07-04 12:03 | P.PN ---
Subjective This is a 89-year-old male past medical history of severe aortic stenosis (opt to continue conservative medical management), CVA, chronic atrial fibrillation, hyperlipidemia, hypertension former smoker, non-ischemic cardiomyopathy with improved EF 01/2021 revealed EF of 5055 percent, severe aortic stenosis. He follows in the office with Dr. Fiore. Patient presents to the hospital with complaints of progressively worsening shortness of breath, leg edema, fatigue and tiredness, and a fall at home. Started on IV Bumex drip. CT scan showed q uestionable small areas of subarachnoid hemorrhage. 07/04/2021 Patient seen and examined, no acute distress. He denies shortness of breath, continues to have some lower extremity edema. Repeat CT brain revealed previously described frontal convexity subarachnoid blood, no acute intracranial abnormality or hemorrhage. Patient with 2.8L over the past 24 hours. Negative fluid balance -1971mL. Decreased weight since admission. Patient is currently maintained on IV Bumex drip, atorvastatin 20 mg nightly, midodrine 5 mg 3 times a day Labs: Sodium 140, potassium 3.7, BUN 93, serum creatinine 2.5 Vitals reviewed GENERAL: In on acute distress NECK: Supple without JVD or thyromegaly. LUNGS: Breath sounds diminished to auscultation bilaterally. Respiration equal and unlabored. No wheezes, rales or rhonchi. HEART: Regular rate and rhythm Systolic ejection murmur at base, No rubs or gallops. S1 and S2 heard. EXTREMITIES: Normal range of motion, 2+bilateral pitting edema. No clubbing or cyanosis. Peripheral pulses intact. ASSESSMENT Acute heart failure with preserved ejection fraction exacerbation Severe aortic stenosis Elevated troponin, not indicative of acute coronary syndrome Chronic kidney disease History of CVA History of Non-ischemic cardiomyopathy with improved EF Permanent atrial fibrillation Hyperlipidemia Hypertension Former smoker PLAN -Add metolazone with Lasix -From a cardiology perspective, patient may be discharged on Lasix 40mg BID, today. Continue other home cardiac medications. Follow up with Dr. Fiore outpatient. Objective - Vital Signs Vital signs: Vital Signs Temp Pulse 63 07/03/21 10:48 Resp 18 07/03/21 10:48 BP 120/60 07/03/21 10:00 Pulse Ox 93 L 07/03/21 10:00 Intake & Output 07/02/21 07/03/21 07/03/21 18:59 06:59 18:59 Intake Total 215 Output Total 2300 1100 Balance -2300 -885 Weight 68.039 kg Intake: Oral 215 Output: Urine 2300 1100 - Labs CBC & Chem 7: 07/02/21 13:05 07/04/21 06:34 Labs: Abnormal Lab Results - Last 24 Hours (Table) 07/02/21 07/02/21 07/03/21 Range/Units 17:36 19:36 11:36 BUN 101 H* (9-20) mg/dL Creatinine 2.55 H (0.66-1.25) mg/dL Troponin I 0.259 H* 0.245 H* (0.000-0.034) ng/mL
[2021-07-04] MEDS: DICLOFENAC SODIUM GEL 100 GM TUBE TOPICAL SCH (12:22)
[2021-07-04] MEDS: MENTHOL-ZINC OXIDE OINT 113 GM TUBE TOPICAL SCH (12:22)
[2021-07-04] MEDS: NYSTATIN 100,000 UNIT/GM POWD 15 GM TOPICAL SCH (12:23)
[2021-07-04 12:37] VITALS: BMI 28.0
--- NOTE | 2021-07-04 12:38 | P.PN ---
Subjective Progress Note Date: 07/04/21 CHIEF COMPLAINT: Fall with head trauma HISTORY OF PRESENT ILLNESS: Patient sitting at bedside chair. Denies any headache. Tolerating diet. He reports that he wants to go home. He is followed by neurology regarding the subarachnoid hemorrhage and subdural hematoma. Repeat computed tomography scan of brain previously described right frontal convexity subarachnoid blood is not appreciated today. The other tiny hyperdensities in the left sylvian fissure and along the falx are stable, possibly representing minimal blood versus calcification. No acute intracranial hemorrhage identified otherwise. No other intracranial postemetic sequelae or mass effect. Afebrile. Sodium 140 potassium 3.7 creatinine 2.59 PHYSICAL EXAM: VITAL SIGNS: Reviewed. GENERAL: Well-developed in no acute distress. HEENT: No sclera icterus. Extraocular movements grossly intact. Moist buccal mucosa. Head is normocephalic. right frontal scalp abrasion and bruising ABDOMEN: Soft. Nondistended. Nontender. NEUROLOGIC: Alert and oriented. Cranial nerves II through XII grossly intact. ASSESSMENT: 1. Fall with head trauma 2. Anterior right frontal scalp contusion 3. 3-4 mm cortical contusion versus trace subarachnoid hemorrhage 4. Trace 1.5 mm thick acute subdural hematoma along the mid falx 5. Acute CHF exacerbation PLAN: -Patient can be discharged from a trauma surgical standpoint when cleared by neurology -Continue supportive care Physician Day Light Relief Operator note has been reviewed by physician. Signing provider agrees with the documented findings, assessment, and plan of care. Objective - Vital Signs Vital signs: Vital Signs Temp 97.4 F L 07/04/21 04:00 Pulse 60 07/04/21 08:12 Resp 16 07/04/21 08:00 BP 116/54 07/04/21 08:00 Pulse Ox 97 07/04/21 08:00 Intake & Output 07/03/21 07/04/21 07/04/21 18:59 06:59 18:59 Intake Total 304.083 574.333 118 Output Total 1350 1500 Balance -1045.917 -925.667 118 Weight 68.039 kg 67.4 kg Intake: Intake, IV Titration 89.083 74.333 Amount Bumetanide 10 mg In 89.083 74.333 Dextrose 5% in Water 60 ml @ 0.5 MG/HR 5 mls/hr IV .Q20H [facility] Rx#: [id number] Oral 215 500 118 Output: Urine 1350 1500 Other: Voiding Method Urinal Urinal - Labs CBC & Chem 7: 07/02/21 13:05 07/04/21 06:34 Labs: Abnormal Lab Results - Last 24 Hours (Table) 07/04/21 Range/Units 06:34 Carbon Dioxide 36 H (22-30) mmol/L BUN 93 H (9-20) mg/dL Creatinine 2.59 H (0.66-1.25) mg/dL Glucose 102 H (74-99) mg/dL
[2021-07-04 13:05] VITALS: BP 119/59; PULSE 59
--- NOTE | 2021-07-04 14:09 | P.DS ---
Providers Date of admission: 07/02/21 16:33 Expected date of discharge: 07/04/21 Attending physician: Obi Saini Consults: 07/02/21 16:33 Consult Physician Routine Consulting Provider: Yadiel Flynn Consult Reason/Comments: Subarachnoid hemorrhage, subdural hemorrhage Do you want consulting provider notified?: Yes Consult Physician Routine Consulting Provider: [facility] Consult Reason/Comments: Congestive heart failure Do you want consulting provider notified?: Yes 07/02/21 17:17 Consult Physician Routine Consulting Provider: Cuba Alberts Consult Reason/Comments: subarachnoid brain bleed Do you want consulting provider notified?: Yes Primary care physician: [facility] Course: Chief Complaint: Short of breath History of presenting complaint: A pleasant 89-year-old patient, of Dr. Rollins whose chronic stable medical conditions include GERD, primary osteoarthritis, hyperlipidemia, chronic insomnia, COPD ( previous smoker), chronic gout, and DO NOT RESUSCITATE, moderate size hiatal hernia, CK D stage III, CHF EF 45%. EGD: Moderate size hiatal hernia with John on lesions. Causing recurrent GI bleed. Patient lives in the assisted living. Patient for last few days has been getting increasingly short of breath. Has been on Lasix. Told to increase his water intake by his family doctor. Increasing swelling of lower extremity. Today he got entangled in his oxygen cord and fell forwards hitting his head. Computed tomography scan of the head showed punctate 3-4 mm cortical contusion versus a subarachnoid blood with one focus on either side. 1.5 mm thick acute subdural hematoma along the mid falx. Evidence of encephalomalacia in the left frontoparietal junction and right occipital lobe. Spondylitic changes in the cervical spine. ER physician Dr. De La Garza spoke to patient's nephew Dr. bernal and given patient's age and comorbidities it was decided to manage patient conservatively. Admitted with CHF exacerbation and cardiorenal syndrome. With acute kidney injury. Patient started on Bumex drip. July 03: Responding well to Bumex drip." 3 L in negative fluid balance. Shortness of breath or bit better. Patient eats a meal. Sitting up in a recliner. Patient is very keen to go home. Seen by cardiology. July 04: Over 4 L in negative fluid balance. Changed over from pubic stricter by mouth Lasix by cardiology. Breathing a bit better. Patient very anxious to go home. Discussed with the patient. Coordinated with the nurse. Renal functions remains to be rather off. Prognosis guarded. Cleared by neurology. Repeat computed tomography scan of the brain unchanged Discussion and discharge planning more than 35 minutes Past medical history to include: john Erosions in the Stomach, Moderate Hiatal Hernia, Congestive Heart Failure with EF of 45%, GERD, Osteoarthritis, Hyperlipidemia, Insomnia, COPD, Gout, Chronic Kidney Disease Stage III, DO NOT RESUSCITATE Social History: Over a Year Ago Patient Was Smoking 2 Small Cigars a Day. Retired. Lives at [facility]. Family history: Reviewed, noncontributory to presentation Physical examination: VITAL SIGNS: 60,'s 22, 119/59, 95% on 2 L GENERAL: Sitting in chair awake, mild short of breath. EYES: Pupils equal. Conjunctiva normal. HEENT: External appearance of nose and ears normal, oral cavity grossly normal. Bruising over the right side of the scalp or anteriorly NECK: JVD possibly raised; masses not palpable. HEART: First and second heart sounds are normal; edema present. LUNGS: Respiratory rate increased; decreased breath sounds ABDOMEN: Soft, some distention nontender, liver spleen not palpable, no masses palpable. PSYCH: Alert and oriented x3; mood and affect normall. MUSCULOSKELETAL:No Clubbing/cyanosis;muscles-grossly intact. Evidence of OA EXTREMITIES: Stockings over the lower extremity INVESTIGATIONS, reviewed in the clinical context: July 04: Potassium 3.7 BUN 93 creatinine 2.5 White count 12.5 hemoglobin 10.2 platelets 171 sodium 140 potassium 4.3 BUN 105 creatinine 2.64 Troponin I 0.310 0.259 EKG tracing personally reviewed by me-atrial fibrillation. Rate 54 Renal ultrasound: Right kidney small in size. 2-D echocardiogram: Moderate concentric LVH. EF 50-55%. Severe aortic stenosis. Moderate pulmonary hypertension some mitral and tricuspid regurgitation. Chest x-ray film personally reviewed by me-pulmonary edema, kyphosis Assessment and plan: -Acute on chronic congestive heart failure exacerbation from systolic/diastolic dysfunction EF 45%: From aortic stenosis: Better Continue Bumex drip 0.5 mg an hour. Strict I's and O's. Discharged home on Lasix 40 mg twice a day. 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 -Hyperlipidemia Lipitor 20 mg daily at bedtime -Chronic insomnia for multiple medical problems Melatonin 6 mg daily at bedtime -COPD in a previous smoker DuoNeb 3 times a day -Chronic kidney disease stage III likely nephrosclerosis atrophic right kidney Follow renal function -Iron deficiency anemia, and anemia of chronic kidney disease Ferrous sulfate -Acute on chronic medical debility -Troponin leak in the setting of acute on chronic kidney disease, no clinical evidence of acute coronary syndrome. -DO NOT RESUSCITATE Disposition: [facility] Plan - Discharge Summary Discharge Rx Participant: No New Discharge Prescriptions: Continue Menthol-Zinc Oxide Oint [Calmoseptine Oint] 1 applic TOPICAL BID Acetaminophen Tab [Tylenol] 500 mg PO TID@0800,1400,2000 Cyanocobalamin [Vitamin B-12] 500 mcg PO DAILY Ferrous Gluconate 324 mg PO DAILY@1130 Diclofenac Sodium Gel [Voltaren Gel] 4 gm TOPICAL QID Albuterol Nebulized [Ventolin Nebulized] 2.5 mg INHALATION RT-TID Loperamide [Imodium] 2 - 4 mg PO QID PRN PRN Reason: Diarrhea Liquacel 30 ml PO BID Temazepam 7.5 mg PO HS Melatonin 10 mg PO HS Levothyroxine Sodium [Synthroid] 12.5 mcg PO DAILY@1200 Lactose-Reduced Food [Boost] 1 can PO DAILY Cholecalciferol [Vitamin D3 (25 Mcg = 1000 Iu)] 25 mcg PO DAILY Rosuvastatin [Crestor] 10 mg PO HS Omeprazole 20 mg PO DAILY Metoprolol Succinate [Toprol XL] 12.5 mg PO DAILY@0600 Fluticasone/Vilanterol [Breo Ellipta 100-25 Mcg Inhaler] 1 puff INHALATION RT-DAILY Allopurinol [Zyloprim] 100 mg PO BID Albuterol Inhaler [Ventolin Hfa Inhaler] 1 puff INHALATION RT-Q4H PRN PRN Reason: Shortness Of Breath Furosemide [Lasix] 40 mg PO BID@0900,1600 #60 tab Nystatin 100,000 Unit/gm Powd [Mycostatin Powder] 1 applic TOPICAL BID Hydrogel 1 applic TOPICAL DAILY@1200 Magnesium Hydroxide [Milk of Magnesia] 1,200 mg PO Q72H PRN PRN Reason: Constipation Changed Midodrine HCl [ProAmatine] 5 mg PO AC-TID #0 Spironolactone [Aldactone] 25 mg PO DAILY #0 Discontinued Amoxic-Pot Clav 500-125 mg [Augmentin 500-125 mg] 1 tab PO BID@0800,1999 Discharge Medication List Acetaminophen Tab [Tylenol] 500 mg PO TID@0800,1400,199910/24/20 [History] Albuterol Inhaler [Ventolin Hfa Inhaler] 1 puff INHALATION RT-Q4H PRN 10/24/20 [History] Allopurinol [Zyloprim] 100 mg PO BID 10/24/20 [History] Cholecalciferol [Vitamin D3 (25 Mcg = 1000 Iu)] 25 mcg PO DAILY 10/24/20 [History] Cyanocobalamin [Vitamin B-12] 500 mcg PO DAILY 10/24/20 [History] Ferrous Gluconate 324 mg PO DAILY@1130 10/24/20 [History] Fluticasone/Vilanterol [Breo Ellipta 100-25 Mcg Inhaler] 1 puff INHALATION RT- DAILY 10/24/20 [History] Menthol-Zinc Oxide Oint [Calmoseptine Oint] 1 applic TOPICAL BID 10/24/20 [History] Metoprolol Succinate [Toprol XL] 12.5 mg PO DAILY@0600 10/24/20 [History] Omeprazole 20 mg PO DAILY 10/24/20 [History] Rosuvastatin [Crestor] 10 mg PO HS 10/24/20 [History] Albuterol Nebulized [Ventolin Nebulized] 2.5 mg INHALATION RT-TID 01/26/21 [History] Diclofenac Sodium Gel [Voltaren Gel] 4 gm TOPICAL QID 01/26/21 [History] Liquacel 30 ml PO BID 01/26/21 [History] Loperamide [Imodium] 2 - 4 mg PO QID PRN 01/26/21 [History] Furosemide [Lasix] 40 mg PO BID@0900,1600 #60 tab 01/29/21 [Rx] Hydrogel 1 applic TOPICAL DAILY@1200 07/02/21 [History] Lactose-Reduced Food [Boost] 1 can PO DAILY 07/02/21 [History] Levothyroxine Sodium [Synthroid] 12.5 mcg PO DAILY@1200 07/02/21 [History] Magnesium Hydroxide [Milk of Magnesia] 1,200 mg PO Q72H PRN 07/02/21 [History] Melatonin 10 mg PO HS 07/02/21 [History] Nystatin 100,000 Unit/gm Powd [Mycostatin Powder] 1 applic TOPICAL BID 07/02/21 [History] Temazepam 7.5 mg PO HS 07/02/21 [History] Midodrine HCl [ProAmatine] 5 mg PO AC-TID #0 07/04/21 [Rx] Spironolactone [Aldactone] 25 mg PO DAILY #0 07/04/21 [Rx] Follow up Appointment(s)/Referral(s): Юлия Fiore MD [STAFF PHYSICIAN] - 07/22/21 9:30 am Jose Rollins MD [Primary Care Provider] - 07/05/21 Activity/Diet/Wound Care/Special Instructions: Call [facility] to notify when patient will be returning - [phone] midodrine and aldactone are not new meds Discharge Disposition: HOME SELF-CARE
[2021-07-04] MEDS ORDERED: FUROSEMIDE 40 MG TAB PO SCH (16:00)
[2021-07-05] MEDS ORDERED: metOLazone 5 MG TAB PO SCH (09:00)
== END 2021-07-04 13:38 | disposition home or self-care (01) | DRG 85 ==
LOC: EC 12:08 → 3SCARD 16:33
PROVIDERS: ADMIT Hospitalist; ATTEND Hospitalist
DX: S06.5X0A Traumatic subdural hemorrhage without loss of consciousness, initial encounter (principal); I50.33 Acute on chronic diastolic (congestive) heart failure; N17.0 Acute kidney failure with tubular necrosis; I48.21 Permanent atrial fibrillation; I42.8 Other cardiomyopathies; I13.0 Hypertensive heart and chronic kidney disease with heart failure and stage 1 through stage 4 chronic kidney disease, or unspecified chronic kidney disease; S06.6X0A Traumatic subarachnoid hemorrhage without loss of consciousness, initial encounter; W01.0XXA Fall on same level from slipping, tripping and stumbling without subsequent striking against object, initial encounter; N18.30 Chronic kidney disease, stage 3 unspecified; R29.6 Repeated falls; D50.9 Iron deficiency anemia, unspecified; D63.1 Anemia in chronic kidney disease; E78.5 Hyperlipidemia, unspecified; F51.04 Psychophysiologic insomnia; Z66 Do not resuscitate; I27.29 Other secondary pulmonary hypertension; N26.1 Atrophy of kidney (terminal); M15.9 Polyosteoarthritis, unspecified; R53.81 Other malaise; M43.12 Spondylolisthesis, cervical region; K21.9 Gastro-esophageal reflux disease without esophagitis; J44.9 Chronic obstructive pulmonary disease, unspecified; R77.8 Other specified abnormalities of plasma proteins; M1A.9XX0 Chronic gout, unspecified, without tophus (tophi); K44.9 Diaphragmatic hernia without obstruction or gangrene; I35.0 Nonrheumatic aortic (valve) stenosis; Z87.891 Personal history of nicotine dependence; Z87.19 Personal history of other diseases of the digestive system; Y92.009 Unspecified place in unspecified non-institutional (private) residence as the place of occurrence of the external cause; Z79.890 Hormone replacement therapy; Z79.899 Other long term (current) drug therapy; Z91.81 History of falling; Z86.73 Personal history of transient ischemic attack (TIA), and cerebral infarction without residual deficits
CPT/HCPCS: 36415; 70450; 71046; 72125; 80048; 80053; 83605; 83735; 83880; 84484; 85025; 85379; 85610; 85730; 93005; 94640; 96374; 99291

== ENCOUNTER 2021-07-13 03:01 | Observation (INO) | payer MEDICARE ==
[2021-07-13] MEDS ORDERED: SODIUM CHLORIDE 0.9% 1,000 ML IV STA (03:17)
--- NOTE | 2021-07-13 03:18 | ED ---
Fall HPI - General Chief Complaint: Fall Stated Complaint: Altered Mental Status Time Seen by Provider: 07/13/21 03:12 Source: EMS, RN notes reviewed, old records reviewed Mode of arrival: EMS - History of Present Illness Initial Comments: This is an 89-year-old male seen states 3 days after fall. Fall extended care facility did hit head but had no complaints of the time. Patient blood thinners. And then his face excessive bruising of his face and arms. No other complaints of injury able to ambulate since fall again fall was 3 days ago MD Complaint: fall -: days(s) (3) Fall From: standing When Fall Occurred: # days [employer] (3) Fall Witnessed: yes, by living facility staff Place Fall Occurred: home Loss of Consciousness: none Prolonged Down Time?: no Symptoms Prior to Fall: none Location: head, face Severity: moderate Severity scale (1-10): 6 Quality: burning Context: tripped/slipped Associated Symptoms: headache, lightheaded, confusion - Related Data Home Medications Medication Instructions Recorded Confirmed Acetaminophen Tab [Tylenol] 500 mg PO TID@0800,1400,199910/24/20 07/13/21 Albuterol Inhaler [Ventolin Hfa 1 puff INHALATION RT-Q4H PRN 10/24/20 07/13/21 Inhaler] Allopurinol [Zyloprim] 100 mg PO BID 10/24/20 07/13/21 Cholecalciferol [Vitamin D3 (25 25 mcg PO DAILY 10/24/20 07/13/21 Mcg = 1000 Iu)] Cyanocobalamin [Vitamin B-12] 500 mcg PO DAILY 10/24/20 07/13/21 Ferrous Gluconate 324 mg PO DAILY@1130 10/24/20 07/13/21 Fluticasone/Vilanterol [Breo 1 puff INHALATION RT-DAILY 10/24/20 07/13/21 Ellipta 100-25 Mcg Inhaler] Metoprolol Succinate [Toprol XL] 12.5 mg PO DAILY@0600 10/24/20 07/13/21 Omeprazole 20 mg PO DAILY 10/24/20 07/13/21 Rosuvastatin [Crestor] 10 mg PO HS 10/24/20 07/13/21 Liquacel 30 ml PO BID 01/26/21 07/13/21 Loperamide [Imodium] 2 - 4 mg PO QID PRN 01/26/21 07/13/21 Hydrogel 1 applic TOPICAL DAILY@1200 07/02/21 07/13/21 Levothyroxine Sodium [Synthroid] 12.5 mcg PO DAILY@0600 07/02/21 07/13/21 Magnesium Hydroxide [Milk of 1,200 mg PO Q72H PRN 07/02/21 07/13/21 Magnesia] Melatonin 10 mg PO HS 07/02/21 07/13/21 Temazepam 7.5 mg PO HS 07/02/21 07/13/21 Doxycycline Hyclate 100 mg PO DIRECTED 07/13/21 07/13/21 Furosemide [Lasix] 40 mg PO DAILY@0900 07/13/21 07/13/21 Furosemide [Lasix] 40 mg PO SUTUTHSA@1400 07/13/21 07/13/21 Spironolactone [Aldactone] 25 mg PO DAILY 07/13/21 07/13/21 Previous Rx's Medication Instructions Recorded Midodrine HCl [ProAmatine] 5 mg PO AC-TID #0 07/04/21 Allergies Allergy/AdvReac Type Severity Reaction Status Date / Time Penicillins Allergy Severe Anaphylaxis Verified 07/13/21 12:16 Review of Systems ROS Statement: Those systems with pertinent positive or pertinent negative responses have been documented in the HPI. ROS Other: All systems not noted in ROS Statement are negative. Past Medical History Past Medical History: Cancer, Heart Failure, CVA/TIA, GERD/Reflux, Osteoarthritis (OA), Renal Disease Additional Past Medical History / Comment(s): insomnia, subarachnoid hemorrhage, hemiplegia and hemiparesis, dysphagia, gout, History of Any Multi-Drug Resistant Organisms: None Reported Past Surgical History: Unable to Obtain Additional Past Surgical History / Comment(s): Knee surgery Past Anesthesia/Blood Transfusion Reactions: No Reported Reaction Past Psychological History: No Psychological Hx Reported Smoking Status: Former smoker Past Alcohol Use History: None Reported Past Drug Use History: None Reported - Past Family History Family Family Medical History: No Reported History General Exam Limitations: altered mental status, physical limitation General appearance: alert, lethargic Head exam: Present: normocephalic, normal inspection. Absent: atraumatic (Significant bruising to different areas of his face) Eye exam: Present: normal appearance, PERRL, EOMI. Absent: scleral icterus, conjunctival injection, periorbital swelling ENT exam: Present: normal exam, mucous membranes moist Neck exam: Present: normal inspection. Absent: tenderness, meningismus, lymphadenopathy Respiratory exam: Present: rhonchi, chest wall tenderness, decreased breath sounds, prolonged expiratory. Absent: respiratory distress, wheezes, rales, stridor Cardiovascular Exam: Present: normal rhythm, tachycardia, normal heart sounds. Absent: systolic murmur, diastolic murmur, rubs, gallop, clicks GI/Abdominal exam: Present: soft, normal bowel sounds. Absent: distended, tenderness, guarding, rebound, rigid Extremities exam: Present: normal inspection, full ROM, normal capillary refill. Absent: tenderness, pedal edema, joint swelling, calf tenderness Back exam: Present: normal inspection Neurological exam: Present: alert, oriented X3, CN II-XII intact Psychiatric exam: Present: normal affect, normal mood Skin exam: Present: warm, dry, intact, normal color. Absent: rash Course Vital Signs 07/13/21 07/13/21 07/13/21 03:04 04:05 06:00 Temperature 97.4 F L Pulse Rate 54 L 57 L 62 Pulse Rate [ Pulse Oximetery ] Respiratory 18 18 20 Rate Blood Pressure 133/64 138/66 115/62 Blood Pressure [Right Arm] O2 Sat by Pulse 90 L 99 95 Oximetry 07/13/21 07/13/21 07/13/21 08:00 08:36 11:27 Temperature 97.1 F L 97.0 F L Pulse Rate Pulse Rate [ 57 L 57 L 67 Pulse Oximetery ] Respiratory 18 18 19 Rate Blood Pressure Blood Pressure 111/78 117/59 [Right Arm] O2 Sat by Pulse 99 94 L Oximetry 07/13/21 07/13/21 14:00 15:07 Temperature 96.9 F L Pulse Rate Pulse Rate [ 67 54 L Pulse Oximetery ] Respiratory 19 19 Rate Blood Pressure Blood Pressure 113/43 [Right Arm] O2 Sat by Pulse 94 L Oximetry - Reevaluation(s) Reevaluation #1: 07/13/21 04:49 Medical record is reviewed Reevaluation #2: 07/13/21 04:49 Patient symptoms are unchanged here in the emergency department Reevaluation #3: 07/13/21 04:49 Patient informed of results and questions are answered - Consultations Consultation #1: Spoke with sound physicians who agree to admit this patient Medical Decision Making - Medical Decision Making 89 male to be evaluated for altered mental status after fall 3 days ago. Patient still having altered mental status here in the emergency department. But no other significant findings. Patient will be admitted to dehydration uremia - Lab Data Result diagrams: 07/13/21 03:26 07/13/21 03:26 Lab Results 07/13/21 07/13/21 07/13/21 Range/Units 03:26 03:26 03:26 WBC 12.2 H (3.8-10.6) k/uL RBC 3.16 L (4.30-5.90) m/uL Hgb 10.1 L (13.0-17.5) gm/dL Hct 31.8 L (39.0-53.0) % MCV 100.6 H (80.0-100.0) fL MCH 32.0 (25.0-35.0) pg MCHC 31.8 (31.0-37.0) g/dL RDW 17.7 H (11.5-15.5) % Plt Count 150 (150-450) k/uL MPV 12.2 Neutrophils % 83 % Lymphocytes % 6 % Monocytes % 7 % Eosinophils % 2 % Basophils % 1 % Neutrophils # 10.0 H (1.3-7.7) k/uL Lymphocytes # 0.7 L (1.0-4.8) k/uL Monocytes # 0.8 (0-1.0) k/uL Eosinophils # 0.3 (0-0.7) k/uL Basophils # 0.1 (0-0.2) k/uL Hypochromasia Slight Anisocytosis Slight Macrocytosis Slight PT 11.7 (9.0-12.0) sec INR 1.1 (<1.2) APTT 24.0 (22.0-30.0) sec Sodium 135 L (137-145) mmol/L Potassium 4.5 (3.5-5.1) mmol/L Chloride 98 (98-107) mmol/L Carbon Dioxide 26 (22-30) mmol/L Anion Gap 11 mmol/L BUN 134 H* (9-20) mg/dL Creatinine 2.77 H (0.66-1.25) mg/dL Est GFR (CKD-EPI)AfAm 22 (>60 ml/min/1.73 sqM) Est GFR (CKD-EPI)NonAf 19 (>60 ml/min/1.73 sqM) Glucose 105 H (74-99) mg/dL Plasma Lactic Acid Jose (0.7-2.0) mmol/L Calcium 9.3 (8.4-10.2) mg/dL Phosphorus 3.6 (2.5-4.5) mg/dL Magnesium 2.2 (1.6-2.3) mg/dL Total Bilirubin 1.3 (0.2-1.3) mg/dL AST 61 H (17-59) U/L ALT 32 (4-49) U/L Alkaline Phosphatase 195 H (38-126) U/L Troponin I (0.000-0.034) ng/mL NT-Pro-B Natriuret Pep pg/mL Total Protein 7.1 (6.3-8.2) g/dL Albumin 4.1 (3.5-5.0) g/dL 07/13/21 07/13/21 07/13/21 Range/Units 03:26 03:26 03:26 WBC (3.8-10.6) k/uL RBC (4.30-5.90) m/uL Hgb (13.0-17.5) gm/dL Hct (39.0-53.0) % MCV (80.0-100.0) fL MCH (25.0-35.0) pg MCHC (31.0-37.0) g/dL RDW (11.5-15.5) % Plt Count (150-450) k/uL MPV Neutrophils % % Lymphocytes % % Monocytes % % Eosinophils % % Basophils % % Neutrophils # (1.3-7.7) k/uL Lymphocytes # (1.0-4.8) k/uL Monocytes # (0-1.0) k/uL Eosinophils # (0-0.7) k/uL Basophils # (0-0.2) k/uL Hypochromasia Anisocytosis Macrocytosis PT (9.0-12.0) sec INR (<1.2) APTT (22.0-30.0) sec Sodium (137-145) mmol/L Potassium (3.5-5.1) mmol/L Chloride (98-107) mmol/L Carbon Dioxide (22-30) mmol/L Anion Gap mmol/L BUN (9-20) mg/dL Creatinine (0.66-1.25) mg/dL Est GFR (CKD-EPI)AfAm (>60 ml/min/1.73 sqM) Est GFR (CKD-EPI)NonAf (>60 ml/min/1.73 sqM) Glucose (74-99) mg/dL Plasma Lactic Acid Jose 1.0 (0.7-2.0) mmol/L Calcium (8.4-10.2) mg/dL Phosphorus (2.5-4.5) mg/dL Magnesium (1.6-2.3) mg/dL Total Bilirubin (0.2-1.3) mg/dL AST (17-59) U/L ALT (4-49) U/L Alkaline Phosphatase (38-126) U/L Troponin I 0.104 H* (0.000-0.034) ng/mL NT-Pro-B Natriuret Pep 46009 pg/mL Total Protein (6.3-8.2) g/dL Albumin (3.5-5.0) g/dL - EKG Data -: EKG Interpreted by Me (EKG is a fibrillation 55 QRS 130 QTC 470) - Radiology Data Radiology results: report reviewed (Chest x-ray CT brain C-spine and face negative for significant acute disease), image reviewed Disposition Clinical Impression: Fall, Facial contusion, Weakness, Uremia, Dehydration, Heart failure Disposition: ADMITTED IP TO THIS HOSP Condition: Fair Is patient prescribed a controlled substance at d/c from ED?: No
[2021-07-13] MEDS ORDERED: SODIUM CHLORIDE 0.9% 500 ML 500 ML IV STA (03:35)
[2021-07-13 03:41] LABS: Anisocytosis Slight; Basophils # (A) 0.1 k/uL (0-0.2); Basophils % (A) 1 %; Eosinophils # (A) 0.3 k/uL (0-0.7); Eosinophils % (A) 2 %; HCT 31.8 % (39.0-53.0); HGB 10.1 gm/dL (13.0-17.5); Hypochromasia Slight; Lymphocytes # (A) 0.7 k/uL (1.0-4.8); Lymphocytes % (A) 6 %; MCHC 31.8 g/dL (31.0-37.0); MCV 100.6 fL (80.0-100.0); Macrocytosis Slight; Mean Platelet Volume 12.2; Monocytes # (A) 0.8 k/uL (0-1.0); Monocytes % (A) 7 %; Neutrophils % (A) 83 %; Platelet Count 150 k/uL (150-450); RBC 3.16 m/uL (4.30-5.90); RDW 17.7 % (11.5-15.5); WBC 12.2 k/uL (3.8-10.6)
[2021-07-13 03:53] LABS: INR 1.1 (<1.2); Prothrombin Time 11.7 sec (9.0-12.0)
--- NOTE | 2021-07-13 04:04 | XR ---
EXAMINATION TYPE: XR chest 1V portable DATE OF EXAM: 07/13/2021 COMPARISON: 07/02/2021 HISTORY: Fall TECHNIQUE: Single view FINDINGS: Heart is enlarged. There is some pulmonary interstitial edema. No definite pleural effusion . IMPRESSION: Mild pulmonary interstitial edema which is similar to the old exam. 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
--- NOTE | 2021-07-13 04:08 | CT ---
EXAMINATION TYPE: CT brain cspine wo con DATE OF EXAM: 07/13/2021 COMPARISON: 07/02/2021 HISTORY: fall, ams CT DLP: 1040.1 mGycm Automated exposure control for dose reduction was used. There is cerebral cortical atrophy. There is no mass effect or midline shift. There is no sign of int racranial hemorrhage. Calvarium is intact. Skull base is intact. There is normal aeration of the mast oid sinuses. The cervical vertebra have normal alignment. There is degenerative disc space narrowing throughout th e cervical spine with spurring of the endplates. Facet joints are intact. There is no compression fra cture. There is moderate anterior hypertrophic spurring in the mid and lower cervical spine. IMPRESSION: Cerebral atrophy. No acute intracranial abnormality.No adverse change compared to old exam. Spondylotic changes in the cervical spine. No fracture. No change compared to the old exam.
[2021-07-13 04:11] LABS: Albumin 4.1 g/dL (3.5-5.0); Calcium 9.3 mg/dL (8.4-10.2); Magnesium 2.2 mg/dL (1.6-2.3); Phosphorus 3.6 mg/dL (2.5-4.5); Total Bilirubin 1.3 mg/dL (0.2-1.3); Total Protein 7.1 g/dL (6.3-8.2)
--- NOTE | 2021-07-13 04:12 | CT ---
EXAMINATION TYPE: CT facial bones wo con DATE OF EXAM: 07/13/2021 COMPARISON: None HISTORY: fall Pain CT DLP: 1040.1 mGycm Automated exposure control for dose reduction was used. Images obtained from the bottom of the mandible to the top of the frontal sinuses without contrast. The mandibular ring is intact. Temporomandibular joints are intact. The zygomatic arches are intact. Maxilla is intact. Nasal bone appears normal. The orbital margins are intact. There is no evidence of orbital blowout fracture. There is no retro-o rbital mass. There is normal aeration of the paranasal sinuses. IMPRESSION: Negative CT scan of the facial bones. No fracture.
[2021-07-13 04:48] LABS: Potassium 4.5 mmol/L (3.5-5.1)
[2021-07-13] MEDS ORDERED: NALOXONE 0.4 MG/ML 1 ML VIAL IV PRN (04:50)
[2021-07-13 05:59] LABS: Appearance,Urine Clear (Clear); Bilirubin,Urine Negative (Negative); Blood,Urine Small (Negative); Color,Urine Yellow; Glucose,Urine (UA) Negative (Negative); Hyaline Casts,Urine 1 /lpf (0-2); Ketones,Urine Negative (Negative); Leukocyte Esterase,Urine Negative (Negative); Mucus,Urine Rare /hpf; Nitrite,Urine Negative (Negative); PH, Urine 5.5 (5.0-8.0); Protein,Urine 1+ (Negative); RBC,Urine <1 /hpf (0-5); Specific Gravity,Urine 1.014 (1.001-1.035); Squamous Epithelial Cell,Urine <1 /hpf (0-4); Urobilinogen,Urine <2.0 mg/dL (<2.0); WBC,Urine 1 /hpf (0-5)
[2021-07-13] MEDS ORDERED: ALBUTEROL HFA INHALER INHALATION PRN (10:18)
[2021-07-13] MEDS ORDERED: NON FORMULARY DRUG (Lactose-Reduced Food [Boost] 237 ML Ml) PO SCH (10:30)
[2021-07-13] MEDS: LEVOTHYROXINE 25 MCG TAB PO SCH (10:48)
[2021-07-13] MEDS: CYANOCOBALAMIN 500 MCG TAB PO SCH (10:50)
[2021-07-13] MEDS: METOPROLOL SUCCINATE (ER) 25 MG TAB.ER.24H PO SCH (10:51)
[2021-07-13] MEDS: MIDODRINE 5 MG TAB PO SCH ×2 (10:51→17:34)
[2021-07-13] MEDS: SYMBICORT 80-4.5 MCG INHALER INHALATION SCH (12:10)
[2021-07-13] MEDS: ALBUTEROL NEBULIZED 2.5 MG/3 ML INHALATION SCH ×2 (12:10→19:34)
[2021-07-13] MEDS: ACETAMINOPHEN TAB 500 MG TAB PO SCH ×2 (13:46→22:28)
[2021-07-13] MEDS: DICLOFENAC SODIUM GEL 100 GM TUBE TOPICAL SCH ×3 (14:13→22:29)
--- NOTE | 2021-07-13 14:26 | P.HPIM ---
History of Present Illness H&P Date: 07/13/21 Chief Complaint: Confused History of presenting complaint: Very pleasant 89-year-old patient, of Dr. Rollins whose chronic stable medical conditions include GERD, primary osteoarthritis, hyperlipidemia, chronic insomnia, COPD ( previous smoker), chronic gout, and DO NOT RESUSCITATE, moderate size hiatal hernia, CK D stage III, CHF EF 45%. EGD: Moderate size hiatal hernia with John lesions. Causing recurrent GI bleed. Patient was recently in the hospital, but falls, CHF exacerbation, cardiac renal syndrome. Acute kidney injury. Was put on a Bumex drip. Patient was discharged on July 04. Patient was brought in by the EMS to the ER. At this assisted living patient was reported to be not acting himself. He had fallen 2 or 3 days ago. With bruising on the right side of the face and forehead. Patient has been refusing to go for evaluation for abnormal labs. In the ER patient was quoting versus from the Bible. Feeling nobody is talking to him.. Somewhat delirious. Not really eating a little bit of applesauce. Uncomfortable. Wanted to go back. Patient's nephew Dr. Ma came in. Patient is short of breath. Somewhat restless. Confused. Delirious. Denies any chest pain. Review of systems: GEN.: Tired, decreased appetite EYES: None HEENT: Decreased hearing, bruising on the scalp face NECK: None RESPIRATORY: Increased shortness of breath CARDIOVASCULAR: None GASTROINTESTINAL: None GENITOURINARY: None MUSCULOSKELETAL: Joint pains LYMPHATICS: None HEMATOLOGICAL: None PSYCHIATRY: Forgetful NEUROLOGICAL: None Past medical history to include: john Erosions in the Stomach, Moderate Hiatal Hernia, Congestive Heart Failure with EF of 45%, GERD, Osteoarthritis, Hyperlipidemia, Insomnia, COPD, Gout, Chronic Kidney Disease Stage 4, DO NOT RESUSCITATE Social History: Over a Year Ago Patient Was Smoking 2 Small Cigars a Day. Retired. Lives at [facility]. Family history: Reviewed, noncontributory to presentation Physical examination: VITAL SIGNS: 97.4, 54, 18, 133/64, 90% room air upon presentation GENERAL: A reclining in bed, short of breath, but delirious EYES: Pupils equal. Conjunctiva normal. HEENT: External appearance of nose and ears normal, oral cavity grossly normal. Bruising over the right side of the scalp / anteriorly NECK: JVD possibly raised; masses not palpable. HEART: First and second heart sounds are normal; edema present. LUNGS: Respiratory rate increased; decreased breath sounds ABDOMEN: Soft, some distention nontender, liver spleen not palpable, no masses palpable. PSYCH: Patient able tonsil simple questions. Anxious. Delirious. MUSCULOSKELETAL:No Clubbing/cyanosis;muscles-grossly intact. Evidence of OA LYMPHATICS: No lymph nodes palpable in the neck and axilla INVESTIGATIONS, reviewed in the clinical context: White count 12.2 hemoglobin 10.1 platelets 150 potassium 4.5 by mouth and 134 creatinine 2.77 Troponin I 0.104 EKG tracing personally reviewed by me-atrial fibrillation. Rate 55 Computed tomography scan of the face had cervical spine: No fracture Chest x-ray film personally reviewed by me-possible atelectasis, cardiomegaly Recent testing: Renal ultrasound: Right kidney small in size. 2-D echocardiogram: Moderate concentric LVH. EF 50-55%. Severe aortic es nosis. Moderate pulmonary hypertension some mitral and tricuspid regurgitation. Assessment and plan: -Acute metabolic encephalopathy from worsening kidney function. With acute delirium - chronic congestive heart failure exacerbation from systolic/diastolic dysfunction EF 45%: From aortic stenosis: Better Lasix 40 mg a day. 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 -Hyperlipidemia Lipitor 20 mg daily at bedtime -Chronic insomnia for multiple medical problems Melatonin 6 mg daily at bedtime -COPD in a previous smoker DuoNeb 3 times a day -Chronic kidney disease stage III likely nephrosclerosis atrophic right kidney Follow renal function -Iron deficiency anemia, and anemia of chronic kidney disease Ferrous sulfate -Acute on chronic medical debility -Troponin leak in the setting of acute on chronic kidney disease, no clinical evidence of acute coronary syndrome. -DO NOT RESUSCITATE Home medications resumed. Diet as tolerated. Fall precautions. Patient is rather delirious. Hospice care will be discussed. With family. Prognosis poor Advanced care planning: End of life care was discussed with patient's nephew Dr. Ma. Questions regarding patient's overall health, medications, possible hospice set [facility] was discussed. Questions answered. Dr. Ma will discuss this with his family member Felecia who is the power for employment attorney. And he'll get back to me. Total time spent 25 minutes Past Medical History Past Medical History: Cancer, Heart Failure, CVA/TIA, GERD/Reflux, Osteoarthritis (OA), Renal Disease Additional Past Medical History / Comment(s): insomnia, subarachnoid hemorrhage, hemiplegia and hemiparesis, dysphagia, gout, History of Any Multi-Drug Resistant Organisms: None Reported Past Surgical History: Unable to Obtain Additional Past Surgical History / Comment(s): Knee surgery Past Anesthesia/Blood Transfusion Reactions: No Reported Reaction Past Psychological History: No Psychological Hx Reported Smoking Status: Former smoker Past Alcohol Use History: None Reported Past Drug Use History: None Reported - Past Family History Family Family Medical History: No Reported History Medications and Allergies Home Medications Medication Instructions Recorded Confirmed Type Acetaminophen Tab [Tylenol] 500 mg PO TID@0800,1400,2000 10/24/20 07/13/21 History Albuterol Inhaler [Ventolin Hfa 1 puff INHALATION RT-Q4H PRN 10/24/20 07/13/21 History Inhaler] Allopurinol [Zyloprim] 100 mg PO BID 10/24/20 07/13/21 History Cholecalciferol [Vitamin D3 (25 25 mcg PO DAILY 10/24/20 07/13/21 History Mcg = 1000 Iu)] Cyanocobalamin [Vitamin B-12] 500 mcg PO DAILY 10/24/20 07/13/21 History Ferrous Gluconate 324 mg PO DAILY@1130 10/24/20 07/13/21 History Fluticasone/Vilanterol [Breo 1 puff INHALATION RT-DAILY 10/24/20 07/13/21 History Ellipta 100-25 Mcg Inhaler] Metoprolol Succinate [Toprol XL] 12.5 mg PO DAILY@0600 10/24/20 07/13/21 History Omeprazole 20 mg PO DAILY 10/24/20 07/13/21 History Rosuvastatin [Crestor] 10 mg PO HS 10/24/20 07/13/21 History Liquacel 30 ml PO BID 01/26/21 07/13/21 History Loperamide [Imodium] 2 - 4 mg PO QID PRN 01/26/21 07/13/21 History Hydrogel 1 applic TOPICAL DAILY@1200 07/02/21 07/13/21 History Levothyroxine Sodium [Synthroid] 12.5 mcg PO DAILY@0600 07/02/21 07/13/21 History Magnesium Hydroxide [Milk of 1,200 mg PO Q72H PRN 07/02/21 07/13/21 History Magnesia] Melatonin 10 mg PO HS 07/02/21 07/13/21 History Temazepam 7.5 mg PO HS 07/02/21 07/13/21 History Midodrine HCl [ProAmatine] 5 mg PO AC-TID #0 07/04/21 07/13/21 Rx Doxycycline Hyclate 100 mg PO DIRECTED 07/13/21 07/13/21 History Furosemide [Lasix] 40 mg PO DAILY@0900 07/13/21 07/13/21 History Furosemide [Lasix] 40 mg PO SUTUTHSA@1400 07/13/21 07/13/21 History Spironolactone [Aldactone] 25 mg PO DAILY 07/13/21 07/13/21 History Allergies Allergy/AdvReac Type Severity Reaction Status Date / Time Penicillins Allergy Severe Anaphylaxis Verified 07/13/21 12:16 Physical Exam Vitals: Vital Signs Temp Pulse Pulse Resp BP BP Pulse Ox 07/13/21 08:36 57 L 18 07/13/21 08:00 97.1 F L 57 L 18 111/78 99 07/13/21 06:00 62 20 115/62 95 07/13/21 04:05 57 L 18 138/66 99 07/13/21 03:04 97.4 F L 54 L 18 133/64 90 L Intake and Output 07/12/21 07/13/21 07/13/21 22:59 06:59 14:59 Other: Weight 63.503 kg Results CBC & Chem 7: 07/13/21 03:26 07/13/21 03:26 Labs: Abnormal Lab Results - Last 24 Hours (Table) 07/13/21 07/13/21 07/13/21 Range/Units 03:26 03:26 03:26 WBC 12.2 H (3.8-10.6) k/uL RBC 3.16 L (4.30-5.90) m/uL Hgb 10.1 L (13.0-17.5) gm/dL Hct 31.8 L (39.0-53.0) % MCV 100.6 H (80.0-100.0) fL RDW 17.7 H (11.5-15.5) % Neutrophils # 10.0 H (1.3-7.7) k/uL Lymphocytes # 0.7 L (1.0-4.8) k/uL Sodium 135 L (137-145) mmol/L BUN 134 H* (9-20) mg/dL Creatinine 2.77 H (0.66-1.25) mg/dL Glucose 105 H (74-99) mg/dL AST 61 H (17-59) U/L Alkaline Phosphatase 195 H (38-126) U/L Troponin I 0.104 H* (0.000-0.034) ng/mL Urine Protein (Negative) Urine Blood (Negative) Urine Mucus (None) /hpf 07/13/21 Range/Units 05:38 WBC (3.8-10.6) k/uL RBC (4.30-5.90) m/uL Hgb (13.0-17.5) gm/dL Hct (39.0-53.0) % MCV (80.0-100.0) fL RDW (11.5-15.5) % Neutrophils # (1.3-7.7) k/uL Lymphocytes # (1.0-4.8) k/uL Sodium (137-145) mmol/L BUN (9-20) mg/dL Creatinine (0.66-1.25) mg/dL Glucose (74-99) mg/dL AST (17-59) U/L Alkaline Phosphatase (38-126) U/L Troponin I (0.000-0.034) ng/mL Urine Protein 1+ H (Negative) Urine Blood Small H (Negative) Urine Mucus Rare H (None) /hpf
--- NOTE | 2021-07-13 17:15 | P.NPCON ---
History of Present Illness - Reason for Consult acute renal failure - History of Present Illness Patient is a 89-year-old male with history of chronic kidney disease NKF stage IV with previous creatinine around 1.9-2 mg/dL. Patient had an episode of acute kidney injury in January and serum creatinine had improved to 1.46 on 02/05/2021. Patient was recently treated in the hospital for CHF exacerbation and discharged in July 04. He returns now with altered mentation. Patient resides at [facility] he was noted to have bruising on his forehead There is history of urine retention. No history of nausea vomiting abdominal pain or diarrhea Serum creatinine noted to be 2.7 with the B UN of 134. No active bleeding noted. Patient however has had recurrent GI bleed previously. Chest x-ray shows mild pulmonary interstitial edema. Patient is not complaining of any shortness of breath. Discussed with patient and with nephew, Dr. Schreiber regarding renal replacement therapy. At this time they do not wish to proceed with any dialysis. Patient has been voiding. Review of Systems As per HPI Past Medical History Past Medical History: Cancer, Heart Failure, CVA/TIA, GERD/Reflux, Osteoarthritis (OA), Renal Disease Additional Past Medical History / Comment(s): insomnia, subarachnoid hemorrhage, hemiplegia and hemiparesis, dysphagia, gout, History of Any Multi-Drug Resistant Organisms: None Reported Past Surgical History: Unable to Obtain Additional Past Surgical History / Comment(s): Knee surgery Past Anesthesia/Blood Transfusion Reactions: No Reported Reaction Past Psychological History: No Psychological Hx Reported Smoking Status: Former smoker Past Alcohol Use History: None Reported Past Drug Use History: None Reported - Past Family History Family Family Medical History: No Reported History Medications and Allergies Home Medications Medication Instructions Recorded Confirmed Type Acetaminophen Tab [Tylenol] 500 mg PO TID@0800,1400,199910/24/20 07/13/21 History Albuterol Inhaler [Ventolin Hfa 1 puff INHALATION RT-Q4H PRN 10/24/20 07/13/21 History Inhaler] Allopurinol [Zyloprim] 100 mg PO BID 10/24/20 07/13/21 History Cholecalciferol [Vitamin D3 (25 25 mcg PO DAILY 10/24/20 07/13/21 History Mcg = 1000 Iu)] Cyanocobalamin [Vitamin B-12] 500 mcg PO DAILY 10/24/20 07/13/21 History Ferrous Gluconate 324 mg PO DAILY@1130 10/24/20 07/13/21 History Fluticasone/Vilanterol [Breo 1 puff INHALATION RT-DAILY 10/24/20 07/13/21 History Ellipta 100-25 Mcg Inhaler] Metoprolol Succinate [Toprol XL] 12.5 mg PO DAILY@0600 10/24/20 07/13/21 History Omeprazole 20 mg PO DAILY 10/24/20 07/13/21 History Rosuvastatin [Crestor] 10 mg PO HS 10/24/20 07/13/21 History Liquacel 30 ml PO BID 01/26/21 07/13/21 History Loperamide [Imodium] 2 - 4 mg PO QID PRN 01/26/21 07/13/21 History Hydrogel 1 applic TOPICAL DAILY@1200 07/02/21 07/13/21 History Levothyroxine Sodium [Synthroid] 12.5 mcg PO DAILY@0600 07/02/21 07/13/21 History Magnesium Hydroxide [Milk of 1,200 mg PO Q72H PRN 07/02/21 07/13/21 History Magnesia] Melatonin 10 mg PO HS 07/02/21 07/13/21 History Temazepam 7.5 mg PO HS 07/02/21 07/13/21 History Midodrine HCl [ProAmatine] 5 mg PO AC-TID #0 07/04/21 07/13/21 Rx Doxycycline Hyclate 100 mg PO DIRECTED 07/13/21 07/13/21 History Furosemide [Lasix] 40 mg PO DAILY@0900 07/13/21 07/13/21 History Furosemide [Lasix] 40 mg PO SUTUTHSA@1400 07/13/21 07/13/21 History Spironolactone [Aldactone] 25 mg PO DAILY 07/13/21 07/13/21 History Allergies Allergy/AdvReac Type Severity Reaction Status Date / Time Penicillins Allergy Severe Anaphylaxis Verified 07/13/21 12:16 Physical Exam Vitals: Vital Signs Temp Pulse Pulse Resp BP BP Pulse Ox 07/13/21 15:07 96.9 F L 54 L 19 113/43 94 L 07/13/21 14:00 67 19 07/13/21 11:27 97.0 F L 67 19 117/59 94 L 07/13/21 08:36 57 L 18 07/13/21 08:00 97.1 F L 57 L 18 111/78 99 07/13/21 06:00 62 20 115/62 95 07/13/21 04:05 57 L 18 138/66 99 07/13/21 03:04 97.4 F L 54 L 18 133/64 90 L Intake and Output 07/13/21 07/13/21 07/13/21 06:59 14:59 22:59 Output Total 600 Balance -600 Output: Urine 400 Post Void Residual 200 Other: Voiding Method Urinal # Voids 2 Weight 63.503 kg Patient is awake. He is comfortable. [place] bruising on the forehead noted Examination of the heart S1 and S2 Examination lungs increased breath sounds at the bases Examination lower extremity shows 2+ edema bilaterally [employer] MANAGER exam shows patient is occasionally confused. He is moving all 4 extremities. Results - Lab Results Most recent lab results Calcium 9.3 mg/dL (8.4-10.2) 07/13/21 03:26 Phosphorus 3.6 mg/dL (2.5-4.5) 07/13/21 03:26 Magnesium 2.2 mg/dL (1.6-2.3) 07/13/21 03:26 07/13/21 03:26 07/13/21 03:26 Assessment and Plan Assessment: 1. Acute kidney injury with disproportionately elevated B UN. Rule out urine retention and rule out GI bleed. Status post recent diuresis for CHF exacerbation. 2. Chronic kidney disease NKF stage IV with baseline creatinine 1.9 mg/dL but as low as 1.46 on 02/05/2021. Evidence of right atrophic kidney on previous imaging. UA is quite benign showing 1+ protein and trace blood 3. Mental status changes possibly related to uremia 4. Chronic CHF with ejection fraction 45%, systolic 5. Severe aortic stenosis 6. Subdural hematoma associated with recent fall Plan: No plans on renal replacement therapy Check post void residual. Place Lange if elevated Hold IV fluids for now Repeat labs in a.m. Continue with the midodrine
[2021-07-13] MEDS: FUROSEMIDE 40 MG TAB PO SCH (17:30)
[2021-07-13] MEDS: MORPHINE SULFATE 4 MG/ML SYRINGE IV PRN (20:57)
[2021-07-13] MEDS ORDERED: MELATONIN 5 MG TABLET PO SCH (21:00)
[2021-07-13] MEDS ORDERED: ATORVASTATIN 20 MG TAB PO SCH (21:00)
[2021-07-13] MEDS: allopurinoL 100 MG TAB PO SCH (22:28)
[2021-07-13] MEDS: MENTHOL-ZINC OXIDE OINT 113 GM TUBE TOPICAL SCH (22:29)
[2021-07-13] MEDS: NYSTATIN 100,000 UNIT/GM POWD 15 GM TOPICAL SCH (22:29)
[2021-07-13] MEDS ORDERED: LORazepam 2 MG/ML INJ IV PRN (22:57)
[2021-07-14] MEDS: MORPHINE SULFATE 4 MG/ML SYRINGE IV PRN (03:34)
[2021-07-14] MEDS: MIDODRINE 5 MG TAB PO SCH ×2 (05:55→12:39)
[2021-07-14] MEDS: METOPROLOL SUCCINATE (ER) 25 MG TAB.ER.24H PO SCH (05:55)
[2021-07-14] MEDS ORDERED: PANTOPRAZOLE 40 MG TABLET PO SCH (07:30)
[2021-07-14] MEDS: allopurinoL 100 MG TAB PO SCH (08:24)
[2021-07-14] MEDS: ACETAMINOPHEN TAB 500 MG TAB PO SCH ×2 (08:24→12:40)
[2021-07-14] MEDS: NYSTATIN 100,000 UNIT/GM POWD 15 GM TOPICAL SCH (08:25)
[2021-07-14] MEDS: MENTHOL-ZINC OXIDE OINT 113 GM TUBE TOPICAL SCH (08:25)
[2021-07-14] MEDS: CYANOCOBALAMIN 500 MCG TAB PO SCH (08:25)
[2021-07-14] MEDS: FUROSEMIDE 40 MG TAB PO SCH (08:25)
[2021-07-14] MEDS: DICLOFENAC SODIUM GEL 100 GM TUBE TOPICAL SCH ×2 (08:26→12:39)
[2021-07-14 08:30] VITALS: TEMP 96.6
[2021-07-14] MEDS: ALBUTEROL NEBULIZED 2.5 MG/3 ML INHALATION SCH ×2 (08:45→12:10)
[2021-07-14] MEDS: SYMBICORT 80-4.5 MCG INHALER INHALATION SCH (08:50)
--- NOTE | 2021-07-14 10:15 | P.PN ---
Subjective Patient is currently resting comfortably. There are plans for hospice care. Patient will be discharged today. He has been voiding. Post void residual residual was 200 mL. Objective - Vital Signs Vital signs: Vital Signs Temp 96.6 F L 07/14/21 08:00 Pulse 76 07/14/21 08:56 Resp 14 07/14/21 08:00 BP 143/78 07/14/21 08:00 Pulse Ox 91 L 07/14/21 08:00 Intake & Output 07/13/21 07/14/21 07/14/21 18:59 06:59 18:59 Output Total 600 Balance -600 Weight 63.503 kg Output: Urine 400 Post Void Residual 200 Other: Voiding Method Urinal Urinal # Voids 2 1 - Exam Patient is comfortable. He is sleeping. Patient is arousable but goes back to sleep Examination of lower extremities shows edema 1+ bilaterally Abdomen is soft nontender - Labs CBC & Chem 7: 07/13/21 03:26 07/13/21 03:26 Assessment and Plan Assessment: 1. Acute kidney injury with disproportionately elevated B UN. Post void resi dual residual was not elevated, rule out GI bleed. Status post recent diuresis for CHF exacerbation. 2. Chronic kidney disease NKF stage IV with baseline creatinine 1.9 mg/dL but as low as 1.46 on 02/05/2021. Evidence of right atrophic kidney on previous imaging. UA is quite benign showing 1+ protein and trace blood 3. Mental status changes possibly related to uremia 4. Chronic CHF with ejection fraction 45%, systolic 5. Severe aortic stenosis 6. Subdural hematoma associated with recent fall Plan: Will sign off Patient is being discharged today with hospice care
[2021-07-14] MEDS: LEVOTHYROXINE 25 MCG TAB PO SCH (12:39)
[2021-07-14 12:41] VITALS: BP 136/71; PULSE 63; RESP 18
--- NOTE | 2021-07-14 17:37 | P.DS ---
Providers Date of admission: 07/13/21 04:50 Expected date of discharge: 07/14/21 Attending physician: Obi Saini Consults: 07/13/21 04:50 Consult Physician Routine Consulting Provider: Юлия Fiore Consult Reason/Comments: elevTrop Do you want consulting provider notified?: Yes Consult Physician Routine Consulting Provider: Tracy Lovell Consult Reason/Comments: uremia Do you want consulting provider notified?: Yes Primary care physician: Jose Rollins [facility] Course: Chief Complaint: Confused History of presenting complaint: Very pleasant 89-year-old patient, of Dr. Rollins whose chronic stable medical conditions include GERD, primary osteoarthritis, hyperlipidemia, chronic insomnia, COPD ( previous smoker), chronic gout, and DO NOT RESUSCITATE, moderate size hiatal hernia, CK D stage III, CHF EF 45%. EGD: Moderate size hiatal hernia with John lesions. Causing recurrent GI bleed. Patient was recently in the hospital, but falls, CHF exacerbation, cardiac renal syndrome. Acute kidney injury. Was put on a Bumex drip. Patient was discharged on July 04. Patient was brought in by the EMS to the ER. At this assisted living patient was reported to be not acting himself. He had fallen 2 or 3 days ago. With bruising on the right side of the face and forehead. Patient has been refusing to go for evaluation for abnormal labs. In the ER patient was quoting versus from the Bible. Feeling nobody is talking to him.. Somewhat delirious. Not really eating a little bit of applesauce. Uncomfortable. Wanted to go back. Patient's nephew Dr. aM came in. Patient is short of breath. Somewhat restless. Confused. Delirious. Denies any chest pain. Care was discussed with patient's nephew Dr. Ma. He also spoke to his cousin Elaine who is the POA. July 14: Patient received Ativan this morning. Sleepy. Not in distress. [facility] will open the case at [facility]. Patient will be transported. Medications none. Discussion and discharge planning more than 35 minutes Past medical history to include: john Erosions in the Stomach, Moderate Hiatal Hernia, Congestive Heart Failure with EF of 45%, GERD, Osteoarthritis, Hyperlipidemia, Insomnia, COPD, Gout, Chronic Kidney Disease Stage 4, DO NOT RESUSCITATE Social History: Over a Year Ago Patient Was Smoking 2 Small Cigars a Day. Retired. Lives at [facility]. Family history: Reviewed, noncontributory to presentation Physical examination: VITAL SIGNS: 96.6, 53, 14, 143.78, 91% on 3 L GENERAL: A reclining in bed, sleepy EYES: Pupils equal. Conjunctiva normal. HEENT: External appearance of nose and ears normal, oral cavity grossly normal. Bruising over the right side of the scalp / anteriorly NECK: JVD possibly raised; masses not palpable. HEART: First and second heart sounds are normal; edema present. LUNGS: Respiratory rate increased; decreased breath sounds ABDOMEN: Soft, some distention nontender, liver spleen not palpable, no masses palpable. PSYCH: Patient sleepy MUSCULOSKELETAL:No Clubbing/cyanosis;muscles-grossly intact. Evidence of OA LYMPHATICS: No lymph nodes palpable in the neck and axilla INVESTIGATIONS, reviewed in the clinical context: White count 12.2 hemoglobin 10.1 platelets 150 potassium 4.5 by mouth and 134 creatinine 2.77 Troponin I 0.104 EKG tracing personally reviewed by me-atrial fibrillation. Rate 55 Computed tomography scan of the face had cervical spine: No fracture Chest x-ray film personally reviewed by me-possible atelectasis, cardiomegaly Recent testing: Renal ultrasound: Right kidney small in size. 2-D echocardiogram: Moderate concentric LVH. EF 50-55%. Severe aortic stenosis. Moderate pulmonary hypertension some mitral and tricuspid regurgitation. Assessment and plan: -Acute metabolic encephalopathy from worsening kidney function. With acute delirium - chronic congestive heart failure exacerbation from systolic/diastolic dysfunction EF 45%: From aortic stenosis: Better Lasix 40 mg a day. 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 -Hyperlipidemia Lipitor 20 mg daily at bedtime -Chronic insomnia for multiple medical problems Melatonin 6 mg daily at bedtime -COPD in a previous smoker DuoNeb 3 times a day -Chronic kidney disease stage III likely nephrosclerosis atrophic right kidney Follow renal function -Iron deficiency anemia, and anemia of chronic kidney disease Ferrous sulfate -Acute on chronic medical debility -Troponin leak in the setting of acute on chronic kidney disease, no clinical evidence of acute coronary syndrome. -DO NOT RESUSCITATE/hospice Disposition: [facility] with hospice/[facility] Plan - Discharge Summary Discharge Rx Participant: No New Discharge Prescriptions: Continue Acetaminophen Tab [Tylenol] 500 mg PO TID@0800,1399,1999 Loperamide [Imodium] 2 - 4 mg PO QID PRN PRN Reason: Diarrhea Liquacel 30 ml PO BID Temazepam 7.5 mg PO HS Melatonin 10 mg PO HS Levothyroxine Sodium [Synthroid] 12.5 mcg PO DAILY@0600 Midodrine HCl [ProAmatine] 5 mg PO AC-TID #0 Rosuvastatin [Crestor] 10 mg PO HS Omeprazole 20 mg PO DAILY Metoprolol Succinate [Toprol XL] 12.5 mg PO DAILY@0600 Allopurinol [Zyloprim] 100 mg PO BID Albuterol Inhaler [Ventolin Hfa Inhaler] 1 puff INHALATION RT-Q4H PRN PRN Reason: Shortness Of Breath Hydrogel 1 applic TOPICAL DAILY@1200 Furosemide [Lasix] 40 mg PO DAILY@0900 Discontinued Cyanocobalamin [Vitamin B-12] 500 mcg PO DAILY Ferrous Gluconate 324 mg PO DAILY@1130 Doxycycline Hyclate 100 mg PO DIRECTED Cholecalciferol [Vitamin D3 (25 Mcg = 1000 Iu)] 25 mcg PO DAILY Fluticasone/Vilanterol [Breo Ellipta 100-25 Mcg Inhaler] 1 puff INHALATION RT-DAILY Magnesium Hydroxide [Milk of Magnesia] 1,200 mg PO Q72H PRN PRN Reason: Constipation Furosemide [Lasix] 40 mg PO SUTUTHSA@1400 Spironolactone [Aldactone] 25 mg PO DAILY Discharge Medication List Acetaminophen Tab [Tylenol] 500 mg PO TID@0800,1399,199910/24/20 [History] Albuterol Inhaler [Ventolin Hfa Inhaler] 1 puff INHALATION RT-Q4H PRN 10/24/20 [History] Allopurinol [Zyloprim] 100 mg PO BID 10/24/20 [History] Metoprolol Succinate [Toprol XL] 12.5 mg PO DAILY@0600 10/24/20 [History] Omeprazole 20 mg PO DAILY 10/24/20 [History] Rosuvastatin [Crestor] 10 mg PO HS 10/24/20 [History] Liquacel 30 ml PO BID 01/26/21 [History] Loperamide [Imodium] 2 - 4 mg PO QID PRN 01/26/21 [History] Hydrogel 1 applic TOPICAL DAILY@1200 07/02/21 [History] Levothyroxine Sodium [Synthroid] 12.5 mcg PO DAILY@0600 07/02/21 [History] Melatonin 10 mg PO HS 07/02/21 [History] Temazepam 7.5 mg PO HS 07/02/21 [History] Midodrine HCl [ProAmatine] 5 mg PO AC-TID #0 07/04/21 [Rx] Furosemide [Lasix] 40 mg PO DAILY@0900 07/13/21 [History] Follow up Appointment(s)/Referral(s): Jose Rollins MD [Primary Care Provider] - 1-2 days Discharge Disposition: DISCH TO [facility]
== END 2021-07-14 14:23 | disposition hospice, inpatient (51) ==
LOC: EC 03:01 → INTOOBSV 04:50 → 3SCARD 04:50 → UNDODISIN 07-14 14:23
PROVIDERS: ADMIT Hospitalist; ATTEND Hospitalist
DX: N17.9 Acute kidney failure, unspecified (principal); G93.41 Metabolic encephalopathy; I50.43 Acute on chronic combined systolic (congestive) and diastolic (congestive) heart failure; I13.0 Hypertensive heart and chronic kidney disease with heart failure and stage 1 through stage 4 chronic kidney disease, or unspecified chronic kidney disease; N18.4 Chronic kidney disease, stage 4 (severe); E86.0 Dehydration; I27.29 Other secondary pulmonary hypertension; S00.83XA Contusion of other part of head, initial encounter; I08.3 Combined rheumatic disorders of mitral, aortic and tricuspid valves; I48.91 Unspecified atrial fibrillation; K44.9 Diaphragmatic hernia without obstruction or gangrene; S40.022A Contusion of left upper arm, initial encounter; S40.021A Contusion of right upper arm, initial encounter; S06.5X9A Traumatic subdural hemorrhage with loss of consciousness of unspecified duration, initial encounter; M1A.9XX0 Chronic gout, unspecified, without tophus (tophi); D63.1 Anemia in chronic kidney disease; D50.9 Iron deficiency anemia, unspecified; M15.9 Polyosteoarthritis, unspecified; E78.5 Hyperlipidemia, unspecified; K21.9 Gastro-esophageal reflux disease without esophagitis; J44.9 Chronic obstructive pulmonary disease, unspecified; R79.89 Other specified abnormal findings of blood chemistry; F51.04 Psychophysiologic insomnia; R13.10 Dysphagia, unspecified; Z79.890 Hormone replacement therapy; Z79.51 Long term (current) use of inhaled steroids; Z79.899 Other long term (current) drug therapy; Z88.0 Allergy status to penicillin; Z91.81 History of falling; Z51.5 Encounter for palliative care; Z66 Do not resuscitate; Z86.73 Personal history of transient ischemic attack (TIA), and cerebral infarction without residual deficits; Z87.19 Personal history of other diseases of the digestive system; Z98.890 Other specified postprocedural states; Z87.891 Personal history of nicotine dependence; W01.0XXA Fall on same level from slipping, tripping and stumbling without subsequent striking against object, initial encounter; Y92.129 Unspecified place in nursing home as the place of occurrence of the external cause
CPT/HCPCS: 96376; 96374; 96375; 96361; 99285; 36415; 94640 ×3; 94760; 93005; 83880; 80053; 83605; 83735; 84100; 84484; 85025; 85610; 85730; 81001; 71045; 72125; 70486; 70450; G0378 ×2; J2060; J2270 ×2; 96360